=== PATIENT | female | born 1995 | race Hispanic/Latino ===

== ENCOUNTER 2021-09-17 12:40 | Emergency (ER) | payer BC, OTHER ==
--- NOTE | 2021-09-17 12:56 | EDPHYS ---
Physician Documentation [facility] Name: Savanna Love Age: 26 yrs Sex: Female : 1995 Arrival Date: 09/17/2021 Time: 12:42 Bed 17 Private MD: ED Physician Wai Sales HPI: 09/17 12:58 This 26 yrs old Female presents to ER via Ambulatory with complaints of kb Allergic Reaction, Skin Problem. 12:57 The patient has experienced similar episodes in the past. The patient has not recently kb seen a physician. 12:58 The patient's rash thought to be caused by an unknown cause. The rash is located on the kb right leg and left leg. The rash can be described as erythematous. Onset: The symptoms/episode began/occurred yesterday. Associated signs and symptoms: Pertinent positives: burning sensation, itching, Pertinent negatives: fever. Severity of symptoms: At their worst the symptoms were moderate in the emergency department the symptoms are unchanged. Pt reports rash to bilateral lower extremities that started last night. Reports burning and itching to area. States she has had this rash in the same area several times in the past and normally gets a shot of steroids. . 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 - Social history:: Smoking status: Patient denies any tobacco usage or history of. ROS: 12:56 Constitutional: Negative for fever, chills, and weight loss. kb 12:56 Skin: Positive for rash, of the right leg and left leg. 12:56 All other systems are negative. Exam: 12:57 Constitutional: This is a well developed, well nourished patient who is awake, alert, kb and in no acute distress. Head/Face: Normocephalic, atraumatic. ENT: Moist Mucous membranes Respiratory: Respirations even and unlabored. No increased work of breathing. Talking in full sentences MS/ Extremity: Pulses equal, no cyanosis. Neurovascular intact. Full, normal range of motion. Neuro: Awake and alert, GCS 15, oriented to person, place, time, and situation. Moves all extremities. Normal gait. Psych: Awake, alert, with orientation to person, place and time. Behavior, mood, and affect are within normal limits. 12:57 Skin: rash a moderate rash is noted, rash can be described as erythematous, on the right leg and left leg. Vital Signs: 12:52 BP 132 / 83; Pulse 116; Resp 16; Temp 98.6(O); Pulse Ox 100% ; Weight 62.14 kg; Height vg1 5 ft. 2 in. (157.48 cm); Pain 6/10; 13:28 BP 122 / 67; Pulse 84; Resp 17; Pulse Ox 98% ; Pain 0/10; jh6 12:52 Body Mass Index 25.06 (62.14 kg, 157.48 cm) vg1 MDM: 12:47 Patient medically screened. kb 12:56 Data reviewed: vital signs, nurses notes. Data interpreted: Pulse oximetry: on room air kb is 100 %. Interpretation: normal. Counseling: I had a detailed discussion with the patient and/or guardian regarding: the historical points, exam findings, and any diagnostic results supporting the discharge/admit diagnosis, the need for outpatient follow up, a community health nursing director, a family practitioner, to return to the emergency department if symptoms worsen or persist or if there are any questions or concerns that arise at home. Administered Medications: 13:20 Drug: Decadron (dexamethasone) 10 mg Route: IM; Site: right gluteus; [facility] 13:25 Follow up: Response: No adverse reaction [facility] Disposition: 18:51 Co-signature as Attending Physician, Wai Sales MD I agree with the assessment and rn plan of care. Attestation: The patient's history, exam findings, diagnostics, and a summary of any interventions or procedures was reviewed in detail with Maggy SOARES. Disposition Summary: 09/17/21 12:55 Discharge Ordered Location: Home Condition: Stable kb Diagnosis - Rash and other nonspecific skin eruption kb Followup: kb - With: Emergency Department - When: As needed - Reason: Worsening of condition Followup: kb - With: Private Physician - When: 2 - 3 days - Reason: Recheck today's complaints, Continuance of care, Re-evaluation by your physician Discharge Instructions: - Discharge Summary Sheet kb - Rash, Adult, Dtje-lq-Epno kb Forms: - Medication Reconciliation Form kb - Thank You Letter kb - Antibiotic Education kb - Prescription Opioid Use kb - Work release form eb Prescriptions: - Medrol (Jerrod) 4 mg Oral Tablets, Dose Pack - take 1 tablet by ORAL route as directed - follow package instructions; 1 kb packet; Refills: 0, Product Selection Permitted Signatures: Maggy Parish FNP-C DIRECTOR OF ENGINEERING-Wai Hernandez MD MD rn Grisel Coats RN RN vg1 Graciela Greer RN RN jh6 Corrections: (The following items were deleted from the chart) 12:59 12:57 The patient has not experienced similar symptoms in the past, kb kb
--- NOTE | 2021-09-17 12:56 | ER ---
Nurse's Notes [facility] Name: Savanna Love Age: 26 yrs Sex: Female : 1995 Arrival Date: 09/17/2021 Time: 12:42 Bed 17 Private MD: Diagnosis: Rash and other nonspecific skin eruption Presentation: 09/17 12:52 Chief complaint: Patient states: "Im having a flare up, I have arthritis and my doctor vg1 told me I have vasculitis but Im not too sure what causes this or how it happends'. Pt appears to have a rash to ERASMO legs and states pain and burning sensation. States rash appeared last night. Coronavirus screen: Vaccine status: Patient reports being unvaccinated. Client denies travel out of the [place] in the last 14 days. Ebola Screen: Patient negative for fever greater than or equal to 101.5 degrees Fahrenheit, and additional compatible Ebola Virus Disease symptoms. Onset: The symptoms/episode began/occurred yesterday. Anaphylaxis evaluation, no signs or symptoms of anaphylaxis were noted. Initial Sepsis Screen: Does the patient meet any 2 criteria? HR > 90 bpm. Does the patient have a suspected source of infection? No. Patient's initial sepsis screen is negative. Risk Assessment: Do you want to hurt yourself or someone else? Patient reports no desire to harm self or others. Onset of symptoms was September 16, 2021. 12:52 Method Of Arrival: Ambulatory vg1 12:52 Acuity: SUBHASH 3 vg1 Triage Assessment: 12:54 General: Appears in no apparent distress. comfortable, Behavior is calm, cooperative. vg1 Pain: Complains of pain in right leg and left leg. 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 - Social history:: Smoking status: Patient denies any tobacco usage or history of. Screenin:10 Abuse screen: Denies threats or abuse. [facility] 13:10 Nutritional screening: No deficits noted. Tuberculosis screening: No symptoms or risk jh6 factors identified. Fall Risk None identified. Assessment: 13:10 General: Appears in no apparent distress. Behavior is calm, cooperative. 6 13:10 Respiratory: Airway is patent Respiratory effort is even, unlabored, Breath sounds are 6 clear. 13:24 Reassessment: No changes from previously documented assessment. no reaction to med jh6 given, verbal understanding of d/c instructions and follow up if condition continued. Vital Signs: 12:52 BP 132 / 83; Pulse 116; Resp 16; Temp 98.6(O); Pulse Ox 100% ; Weight 62.14 kg; Height vg1 5 ft. 2 in. (157.48 cm); Pain 6/10; 13:28 BP 122 / 67; Pulse 84; Resp 17; Pulse Ox 98% ; Pain 0/10; jh6 12:52 Body Mass Index 25.06 (62.14 kg, 157.48 cm) vg1 ED Course: 12:42 Patient arrived in ED. am2 12:42 Maggy Parish FNP-C is [facility]. kb 12:42 Wai Sales MD is Attending Physician. kb 12:54 Triage completed. vg1 12:54 Arm band placed on. vg1 13:10 Bed in low position. Call light in reach. Side rails up X 1. jh6 13:10 No provider procedures requiring assistance completed. jh6 13:10 Patient did not have IV access during this emergency room visit. jh6 13:15 Graciela Greer, TYRON is Primary Nurse. 6 Administered Medications: 13:20 Drug: Decadron (dexamethasone) 10 mg Route: IM; Site: right gluteus; 6 13:25 Follow up: Response: No adverse reaction [facility] Outcome: 12:55 Discharge ordered by . kb 13:25 Discharged to home jh6 13:25 Condition: good 13:25 Discharge instructions given to patient. 13:28 Patient left the ED. [facility] Signatures: Maggy Parish FNP-C FNP-Ckb Moreno, Amanda am2 Grisel Coats, RN RN 1 Graciela Greer RN RN 6
[2021-09-17] MEDS ORDERED: dexAMETHasone 10 MG/ML VIAL ONE (13:19)
[2021-09-17 13:38] VITALS: TEMP 98.6
[2021-09-17 13:39] VITALS: BP 122/67; O2SAT 98
== END 2021-09-17 13:28 | disposition home or self-care (01) ==
LOC: ER 12:40
DX: R21 Rash and other nonspecific skin eruption (principal)
CPT/HCPCS: 96372; 99283; J1100

== ENCOUNTER 2022-06-13 15:19 | Emergency (ER) | payer BC, OTHER, SELFPAY ==
[2022-06-13] MEDS ORDERED: dexAMETHasone 10 MG/ML VIAL ONE (16:43)
--- NOTE | 2022-06-13 16:46 | RAD REPORT ---
EXAM DESCRIPTION: US - Extrem Venous W Compress Marcus - 06/13/2022 4:38 pm CLINICAL HISTORY: PAIN COMPARISON: No comparisons TECHNIQUE: Real-time sonographic evaluation of the lower extremity deep venous systems was performed using color Doppler, grayscale, and compression. FINDINGS: Bilateral lower extremities. Normal compressibility, flow augmentation, phasic flow and spontaneous flow is identified in both the left and right lower extremity deep venous systems. No intraluminal filling defects seen. IMPRESSION: No DVT in either lower extremity.
--- NOTE | 2022-06-13 17:01 | ER ---
Nurse's Notes [facility] Name: Savanna Flynn Age: 27 yrs Sex: Female : 1995 Arrival Date: 06/13/2022 Time: 15:22 Bed 11 Private MD: Diagnosis: Pain in leg, unspecified Presentation: 06/13 15:41 Chief complaint: Patient states: No vasculitis meds for about 1 year. Leg pains, ll1 limping this week. Coronavirus screen: Client denies travel out of the [place] in the last 14 days. Ebola Screen: Patient denies travel to an Ebola-affected area in the 21 days before illness onset. Initial Sepsis Screen: Does the patient meet any 2 criteria? HR > 90 bpm. No. Patient's initial sepsis screen is negative. Does the patient have a suspected source of infection? No. Patient's initial sepsis screen is negative. Risk Assessment: Do you want to hurt yourself or someone else? Patient reports no desire to harm self or others. Onset of symptoms was June 06, 2022. 15:41 Method Of Arrival: Ambulatory ll1 15:41 Acuity: SUBHASH 3 ll1 15:44 Coronavirus screen: Vaccine status: Patient reports being unvaccinated. At this time, ll1 the client does not indicate any symptoms associated with coronavirus-19. Triage Assessment: 15:44 General: Appears in no apparent distress. Behavior is cooperative, appropriate for age. ll1 Pain: Complains of pain in right leg and left leg Pain currently is 7 out of 10 on a pain scale. Quality of pain is described as aching. Musculoskeletal: Reports pain in right leg and left leg. Historical: - Allergies: 15:42 No Known Allergies; ll1 - PMHx: 15:42 Arthritis; vasculitis; shogrens; Fibromyalgia; ll1 - PSHx: 15:42 section; ll1 - Immunization history:: Client reports having NOT received the Covid vaccine. - Social history:: Smoking status: Patient denies any tobacco usage or history of. Vital Signs: 15:41 BP 128 / 87; Pulse 100; Resp 16; Temp 97.8; Pulse Ox 100% ; ll1 ED Course: 15:22 Patient arrived in ED. as 15:24 Romeo Ford PA is PHCP. jmm 15:24 Gil Polk MD is Attending Physician. jmm 15:40 Arm band placed on. ll1 15:42 Triage completed. ll1 15:53 Patient placed in an exam room, on a stretcher. iw 16:40 US Extremity Venous W Compression Marcus In Process Unspecified. EDMS 16:43 Opal Gupta, RN is Primary Nurse. iw Administered Medications: 16:47 Drug: Decadron (dexamethasone) 10 mg Route: IM; Site: right ventrogluteal; iw Outcome: 17:00 Discharge ordered by . julita 17:33 Patient left the ED. iw Signatures: Dispatcher [employer] EDMS Romeo Ford PA PA Dalila Gilbert as Opal Gupta, RN RN iw Maia Iglesias RN RN 1
--- NOTE | 2022-06-13 17:01 | EDPHYS ---
Physician Documentation [facility] Name: Savanna Flynn Age: 27 yrs Sex: Female : 1995 Arrival Date: 06/13/2022 Time: 15:22 Bed 11 Private MD: ED Physician Gil Polk HPI: 06/13 15:45 This 27 yrs old Female presents to ER via Ambulatory with complaints of jmm vasculitis flare. 15:45 The patient presents with pain. Onset: The symptoms/episode began/occurred gradually. jmm Modifying factors: The symptoms are alleviated by nothing. the symptoms are aggravated by nothing. Associated signs and symptoms: Pertinent positives: swelling, Pertinent negatives fever. Is a 27-year-old female with history of Sjogren's, fibromyalgia, vasculitis the presents emerged department with complaints of bilateral lower extremity pain. Symptoms been ongoing for approximately a week but states she is currently feeling more fatigued. Denies known injury. Patient has had similar episodes with previous vasculitis flares. Denies fever. Historical: - Allergies: 15:42 No Known Allergies; ll1 - PMHx: 15:42 Arthritis; vasculitis; shogrens; Fibromyalgia; ll1 - PSHx: 15:42 section; ll1 - Immunization history:: Client reports having NOT received the Covid vaccine. - Social history:: Smoking status: Patient denies any tobacco usage or history of. Vital Signs: 15:41 BP 128 / 87; Pulse 100; Resp 16; Temp 97.8; Pulse Ox 100% ; ll1 MDM: 15:57 Patient medically screened. [facility] 17:00 Data reviewed: vital signs, nurses notes. Counseling: I had a detailed discussion with [facility] the patient and/or guardian regarding: the historical points, exam findings, and any diagnostic results supporting the discharge/admit diagnosis, the need for outpatient follow up, to return to the emergency department if symptoms worsen or persist or if there are any questions or concerns that arise at home. 06/13 15:44 Order name: US Extremity Venous W Compression Marcus; Complete Time: 17:01 [facility] Administered Medications: 16:47 Drug: Decadron (dexamethasone) 10 mg Route: IM; Site: right ventrogluteal; iw Disposition Summary: 06/13/22 17:00 Discharge Ordered Location: Home [facility] Condition: Stable jmm Diagnosis - Pain in leg, unspecified jmm Followup: m - With: Private Physician - When: 2 - 3 days - Reason: Recheck today's complaints, Continuance of care, Re-evaluation by your physician Discharge Instructions: - Discharge Summary Sheet jmm - Vasculitis jmm Forms: - Medication Reconciliation Form [facility] - Thank You Letter julita - Antibiotic Education porfirio - Prescription Opioid Use [facility] Prescriptions: - Prednisone 20 mg Oral Tablet - take 3 tablets by ORAL route once daily for 5 days; 15 tablet; Refills: 0, [facility] Product Selection Permitted - orphenadrine citrate 100 mg Oral Tablet Sustained Release - take 1 tablet by ORAL route 2 times per day As needed; 20 tablet; Refills: 0, [facility] Product Selection Permitted Addendum: 06/18/2022 04:21 Co-signature as Attending Physician, Gil Polk MD I agree with the assessment and r t plan of care. Signatures: Dispatcher [employer] EDRomeo Leblanc PA PA jmm Williams, Irene RN TYRON iw Maia Iglesias RN RN ll1 Gil Polk MD MD rt
[2022-06-13 17:37] VITALS: BP 128/87; TEMP 97.8; O2SAT 100
== END 2022-06-13 17:33 | disposition home or self-care (01) ==
LOC: ER 15:19
DX: M79.605 Pain in left leg (principal); M79.604 Pain in right leg
CPT/HCPCS: 93970; 96372; 99283; J1100

== ENCOUNTER 2022-08-21 07:04 | Emergency (ER) | payer BC, SELFPAY ==
[2022-08-21 08:08] LABS: Absolute Lymphocytes (CBC) 1.5 K/uL (0.7-4.9); Lymphocytes % 28.7 % (15.3-44.8); MCV 89.3 fL (80-100); MPV 8.5 fL (7.6-11.3); RBC Red Blood Cell Count 3.69 M/uL (3.86-4.86)
[2022-08-21 08:11] LABS: Protime INR 1.09
--- NOTE | 2022-08-21 08:15 | RAD REPORT ---
EXAM DESCRIPTION: RAD - Chest Single View - 08/21/2022 7:48 am CLINICAL HISTORY: CHEST PAIN COMPARISON: None TECHNIQUE: AP portable chest image was obtained 08/21/2022 7:48 am . FINDINGS: Lungs are clear. Heart and vasculature are normal. No measurable pleural effusion and no p neumothorax. No acute bony abnormality seen. No acute aortic findings suspected. IMPRESSION: No acute cardiopulmonary process.
[2022-08-21 08:21] LABS: ALT/SGPT 19 U/L (13-56); AST/SGOT 15 U/L (15-37); Albumin 3.6 g/dL (3.4-5.0); Alkaline Phosphatase 87 U/L (45-117); BUN Blood Urea Nitrogen 16 mg/dL (7-18); Bicarbonate 27 mmol/L (21-32); Bilirubin Total 0.3 mg/dL (0.2-1.0); Glomerular Filtration Rate 107 ml/min (=/>90); Glucose Level 99 mg/dL (74-106); Potassium 3.1 mmol/L (3.5-5.1); Protein, Total 9.1 g/dL (6.4-8.2); Sodium Level 139 mmol/L (136-145)
[2022-08-21 08:22] LABS: Bilirubin Direct < 0.1 mg/dL (0-0.2)
[2022-08-21 08:43] LABS: SARS-COV-2 RT PCR NEGATIVE (NEGATIVE)
[2022-08-21] MEDS ORDERED: POTASSIUM CL SA 10 MEQ TAB PO ONE (08:54)
--- NOTE | 2022-08-21 08:54 | ER ---
Nurse's Notes [facility] Name: Savanna Flynn Age: 27 yrs Sex: Female : 1995 Arrival Date: 08/21/2022 Time: 07:08 Bed 8 Private MD: Diagnosis: Vascultis, Hypokalemia, Back pain Presentation: 08/21 07:14 Chief complaint: Patient states: "I feel like I am having a flare up of vasculitis \\T\\ I ld1 feel like needles are in my lungs." Denies chest pain. C/O busted blood vessels of ERASMO feet, pain to mid back when breathing. Coronavirus screen: At this time, the client does not indicate any symptoms associated with coronavirus-19. Ebola Screen: No symptoms or risks identified at this time. Initial Sepsis Screen: Does the patient meet any 2 criteria? No. Patient's initial sepsis screen is negative. Does the patient have a suspected source of infection? No. Patient's initial sepsis screen is negative. Risk Assessment: Do you want to hurt yourself or someone else? Patient reports no desire to harm self or others. Onset of symptoms was August 21, 2022. 07:14 Method Of Arrival: Ambulatory ld1 07:14 Acuity: SUBHASH 3 ld1 Triage Assessment: 07:17 General: Appears in no apparent distress. comfortable, Behavior is calm, cooperative, ld1 appropriate for age. Pain: Complains of pain in mid back area Pain does not radiate. Pain currently is 7 out of 10 on a pain scale. Quality of pain is described as sharp, stabbing, Pain began 2-3 days ago. Is continuous. EENT: No signs and/or symptoms were reported regarding the EENT system. Neuro: Level of Consciousness is awake, alert, obeys commands, Oriented to person, place, time, situation. Cardiovascular: Capillary refill < 3 seconds Patient's skin is warm and dry. Respiratory: Airway is patent Respiratory effort is even, unlabored, the patient has mild shortness of breath. GI: Abdomen is round non-distended. : No signs and/or symptoms were reported regarding the genitourinary system. Derm: No signs and/or symptoms reported regarding the dermatologic system. Musculoskeletal: Range of motion: intact in all extremities. 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 - Social history:: Smoking status: Patient reports the use of cigarette tobacco products, denies chronic smoking, but will smoke occasionally, Patient uses alcohol, only on a social basis. Screenin:35 [facility] ED Fall Risk Assessment (Adult) History of falling in the last 3 months, ko1 including since admission No falls in past 3 months (0 pts) Confusion or Disorientation No (0 pts) Intoxicated or Sedated No (0 pts) Impaired Gait No (0 pts) Mobility Assist Device Used No (0 pt) Altered Elimination No (0 pt) Score/Fall Risk Level 0 - 2 = Low Risk Oriented to surroundings, Maintained a safe environment, Educated pt \\T\\ family on fall prevention, incl call for assistance when getting out of bed, Assessed \\T\\ reinforced patient's understanding of fall precautions, Provided non-skid footwear, Hourly rounding (assess needs \\T\\ fall precautionary measures) done, Used ambulatory aids as needed (educated on \\T\\ assisted with), Used gait belt as appropriate. Abuse screen: Denies threats or abuse. Denies injuries from another. Nutritional screening: No deficits noted. Tuberculosis screening: No symptoms or risk factors identified. Assessment: 07:35 General: Appears in no apparent distress. comfortable, Behavior is calm, cooperative, ko1 appropriate for age. Pain: Complains of pain in back and mid back area. Neuro: No deficits noted. Cardiovascular: No deficits noted. Respiratory: No deficits noted. GI: No deficits noted. : No deficits noted. EENT: No deficits noted. Derm: No deficits noted. Musculoskeletal: No deficits noted. 08:58 Neuro: Kahn Agitation-Sedation Scale (RASS): 0 - Alert and Calm. ko1 Vital Signs: 07:14 BP 120 / 73; Pulse 100; Resp 18; Temp 97.9(O); Pulse Ox 97% on R/A; Weight 63.5 kg; ld1 Height 5 ft. 2 in. (157.48 cm); Pain 7/10; 07:27 BP 118 / 70; Pulse 96; Resp 16; Pulse Ox 99% ; ko1 08:46 BP 107 / 76; Pulse 88; Pulse Ox 98% ; ko1 07:14 Body Mass Index 25.61 (63.50 kg, 157.48 cm) ld1 ED Course: 07:08 Patient arrived in ED. ja2 07:17 Triage completed. ld1 07:17 Arm band placed on right wrist. ld1 07:20 Tatiana Bess MD is Attending Physician. sp3 07:25 Cora Waters, RN is Primary Nurse. ko1 07:35 Patient has correct armband on for positive identification. Bed in low position. Call ko1 light in reach. Side rails up X 1. Pulse ox on. NIBP on. 07:50 XRAY Chest (1 view) In Process Unspecified. EDMS 08:00 Inserted saline lock: 20 gauge in right antecubital area, using aseptic technique. ko1 Blood collected. 08:01 COVID-19/FLU A+B Sent. kj1 08:58 No provider procedures requiring assistance completed. ko1 08:59 IV discontinued, intact, bleeding controlled, No redness/swelling at site. Pressure ko1 dressing applied. Administered Medications: 08:53 Drug: SOLU-Medrol (methylPREDNISolone sodium succinate) 125 mg Route: IM; Site: left ko1 gluteus; 09:02 Follow up: Response: No adverse reaction ko1 08:53 Drug: Potassium Chloride 40 mEq Route: PO; ko1 09:01 Follow up: Response: No adverse reaction ko1 Medication: 08:58 VIS not applicable for this client. ko1 Outcome: 08:53 Discharge ordered by . sp3 08:59 Discharged to home ambulatory. ko1 08:59 Condition: stable 09:17 Discharge instructions given to patient, Instructed on discharge instructions, follow ko1 up and referral plans. Demonstrated understanding of instructions, follow-up care. 09:19 Patient left the ED. ko1 Signatures: Dispatcher [employer] EDMS Fransisca Parish kj1 Maricruz Singh RN RN ld1 Tatiana Bess MD MD sp3 Anila Santos 2 Cora Waters, RN RN ko1 Corrections: (The following items were deleted from the chart) 09:17 08:59 Discharge instructions given to patient, Instructed on discharge instructions, ko1 follow up and referral plans. medication usage, Demonstrated understanding of instructions, follow-up care, medications, Prescriptions given X ko1
--- NOTE | 2022-08-21 08:54 | EDPHYS ---
Physician Documentation [facility] Name: Savanna Flynn Age: 27 yrs Sex: Female : 1995 Arrival Date: 08/21/2022 Time: 07:08 Bed 8 Private MD: ED Physician Tatiana Bess HPI: 08/21 07:46 This 27 yrs old Female presents to ER via Ambulatory with complaints of Back sp3 Pain, Pain Breathing, Problem w/ Feet. 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 She has not had symptoms like this in the past. No history of prior pneumothorax, pulmonary embolism, pleurisy, or any chest or back injury. She also has a mild rash on her right left anterior feet consistent with her prior vasculitis. She is requesting IV steroids for this. She denies anterior chest pain, throat pain, fever, URI symptoms, headache, lower back pain, abdominal pain, nausea, vomiting, diarrhea, or any other symptoms at this time.. 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 - Social history:: Smoking status: Patient reports the use of cigarette tobacco products, denies chronic smoking, but will smoke occasionally, Patient uses alcohol, only on a social basis. ROS: 07:48 Constitutional: Negative for fever, chills, and weight loss, Eyes: Negative for injury, sp3 pain, redness, and discharge, ENT: Negative for injury, pain, and discharge, Neck: Negative for injury, pain, and swelling, Cardiovascular: Negative for chest pain, palpitations, and edema, Abdomen/GI: Negative for abdominal pain, nausea, vomiting, diarrhea, and constipation, MS/Extremity: Negative for injury and deformity, Neuro: Negative for headache, weakness, numbness, tingling, and seizure, Psych: Negative for depression, anxiety, suicide ideation, homicidal ideation, and hallucinations, Endocrine: Negative for neck swelling, polydipsia, polyuria, polyphagia, and marked weight changes. 07:48 All other systems are negative. Exam: 07:48 Constitutional: This is a well developed, well nourished patient who is awake, alert, sp3 and in no acute distress. Head/Face: Normocephalic, atraumatic. Eyes: Pupils equal round and reactive to light, extra-ocular motions intact. Lids and lashes normal. Conjunctiva and sclera are non-icteric and not injected. Cornea within normal limits. Periorbital areas with no swelling, redness, or edema. ENT: Nares patent. No nasal discharge, no septal abnormalities noted. External auditory canals are clear. Oropharynx with no redness, swelling, or masses, exudates, or evidence of obstruction, uvula midline. Mucous membranes moist. Neck: Trachea midline, no thyromegaly or masses palpated, and no cervical lymphadenopathy. Supple, full range of motion without nuchal rigidity, or vertebral point tenderness. No Meningismus. Chest/axilla: Normal chest wall appearance and motion. Nontender with no deformity. No lesions are appreciated. Cardiovascular: Regular rate and rhythm with a normal S1 and S2. No gallops, murmurs, or rubs. Normal PMI, no JVD. No pulse deficits. Respiratory: Lungs have equal breath sounds bilaterally, clear to auscultation and percussion. No rales, rhonchi or wheezes noted. No increased work of breathing, no retractions or nasal flaring. Abdomen/GI: Soft, non-tender, with normal bowel sounds. No distension or tympany. No guarding or rebound. No evidence of tenderness throughout. Neuro: Awake and alert, GCS 15, oriented to person, place, time, and situation. Cranial nerves II-XII grossly intact. Motor strength 5/5 in all extremities. Sensory grossly intact. Cerebellar exam normal. Normal gait. Psych: Awake, alert, with orientation to person, place and time. Behavior, mood, and affect are within normal limits. 07:48 Back: Pain to palpation on mid back musculature. Range of motion is intact. No rash noted.. 07:48 Skin: Maculopapular rash bilateral anterior feet over vasculature consistent with her prior vasculitis.. Vital Signs: 07:14 BP 120 / 73; Pulse 100; Resp 18; Temp 97.9(O); Pulse Ox 97% on R/A; Weight 63.5 kg; ld1 Height 5 ft. 2 in. (157.48 cm); Pain 7/10; 07:27 BP 118 / 70; Pulse 96; Resp 16; Pulse Ox 99% ; ko1 08:46 BP 107 / 76; Pulse 88; Pulse Ox 98% ; ko1 07:14 Body Mass Index 25.61 (63.50 kg, 157.48 cm) ld1 MDM: 07:34 Patient medically screened. sp3 07:50 Data reviewed: vital signs, nurses notes. ED course: 27-year-old female with back pain sp3 and vasculitis bilateral lower extremities. She is concerned for possible COVID with pneumonia infection. Differential diagnosis includes musculoskeletal pain, COVID-19, influenza, viral syndrome, pleurisy, among others. Clinically I am not highly suspicious for pneumonia, sepsis, acute coronary syndrome, pathology including dissection and aneurysm other critical findings. She also has vasculitis similar to her prior episodes. We will obtain chest x-ray, laboratory values, COVID-19 and flu swabs and general support. Steroids will be given if work-up is negative. Patient to follow-up with her primary care physician. Disposition will be based on patient course and work-up.. 08:51 ED course: Patient's labs with patient. Potassium is 3.1 we will replenish with 40 mg sp3 p.o. potassium. Also 125 mg of Solu-Medrol will be given intramuscularly for the vasculitis. Chest x-ray and remainder of labs including swabs are all negative. Patient will be discharged at this time.. 02 07:40 Order name: Basic Metabolic Panel; Complete Time: 08:35 sp3 08/21 07:40 Order name: CBC with Diff; Complete Time: 08:35 sp3 08/21 07:40 Order name: LFT's; Complete Time: 08:35 sp3 08/21 07:40 Order name: PT-INR; Complete Time: 08:35 sp3 08/21 07:40 Order name: XRAY Chest (1 view); Complete Time: 08:35 sp3 08/21 07:40 Order name: COVID-19/FLU A+B sp3 08/21 07:40 Order name: IV Saline Lock; Complete Time: 08:01 sp3 08/21 07:40 Order name: Labs collected and sent; Complete Time: 08:01 sp3 Administered Medications: 08:53 Drug: SOLU-Medrol (methylPREDNISolone sodium succinate) 125 mg Route: IM; Site: left ko1 gluteus; 09:02 Follow up: Response: No adverse reaction ko1 08:53 Drug: Potassium Chloride 40 mEq Route: PO; ko1 09:01 Follow up: Response: No adverse reaction ko1 Disposition Summary: 08/21/22 08:53 Discharge Ordered Location: Home sp3 Condition: Stable sp3 Diagnosis - Vascultis, Hypokalemia, Back pain sp3 Followup: sp3 - With: Private Physician - When: As needed - Reason: Continuance of care Discharge Instructions: - Discharge Summary Sheet sp3 - Vasculitis sp3 Forms: - Medication Reconciliation Form sp3 - Thank You Letter sp3 - Antibiotic Education sp3 - Prescription Opioid Use sp3 - Work release form ko1 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 She has not had symptoms like this in the past. No history of prior pneumothorax, pulmonary embolism, pleurisy, or any chest or back injury. She also has a mild papular rash on her right left anterior feet consistent with her prior vasculitis. She is requesting IV steroids for this. She denies anterior chest pain, throat pain, fever, URI symptoms, headache, lower back pain, abdominal pain, nausea, vomiting, diarrhea, or any other symptoms at this time.. sp3
[2022-08-21] MEDS ORDERED: METHYLPREDNISOLONE 125 MG INJ ONE (08:55)
[2022-08-21 09:23] VITALS: TEMP 97.9
[2022-08-21 09:25] VITALS: BP 107/76; O2SAT 98
== END 2022-08-21 09:19 | disposition home or self-care (01) ==
LOC: ER 07:04
DX: M35.0B Sjogren syndrome with vasculitis (principal); E87.6 Hypokalemia; M54.9 Dorsalgia, unspecified; F17.210 Nicotine dependence, cigarettes, uncomplicated; Z20.822 Contact with and (suspected) exposure to COVID-19
CPT/HCPCS: 85025; 80048; 36415; 85610; 80076; 0240U; 71045; J2930

== ENCOUNTER 2022-09-05 16:08 | Emergency (ER) | payer BC ==
--- OUTSIDE RECORDS SUMMARY | 2022-09-05 16:10 | XMS REPORT | Continuity of Care Document ---
:1995 Author Organization [facility] t Address [address] [place] [address] Care Team Providers Name Role Phone Otf Plata Attending Clinician OTF LUCERO Attending Clinician Unavailable Payers Payer Name Policy Type Policy Number Effective Date Expiration Date S ource Problems Condition Condition Condition Status Onset Resolution Last Treating Co mments Source Name Details Category Date Date Treatment Clinician Date No known No known Disease Unive rs active active ity of problems problems [facility] Allergies, Adverse Reactions, Alerts Allergy Allergy Status Severity Reaction(s) Onset Inactive Treating Comm ents Source Name Type Date Date Clinician NO KNOWN Drug Active Univers ALLERGIE Class ity of S [facility] Social History Social Habit Start Date Stop Date Quantity Comments Source Sex Assigned At Uni versity [facility] Exposure to SARS-CoV-2 Not sure [facility] [place] (event) [facility] Smoking Status Start Date Stop Date Source Unknown if ever smoked Universit y [facility] Medications Ordered Filled Start Stop Current Ordering Indication Dosage Frequency Signature Comments Components Source Medication Medication Date Date Medication? Clinician (SIG) Name Name ketorolac 2020- No 15mg 15 mg, Unive rs (TORADOL) 09-09 Slow IV ity of injection 00:45: 23:47 Push, [place] 15 mg 00 :00 ONCE, 1 Medical dose, [facility] Branch 09/08/20 at 1845, RACHEL
Fa culty member approving Restricted medication : ADEEL BAKER ondansetron 2020- No 4mg 4 mg, Slow Univers (ZOFRAN 2- IV Push, ity of (PF)) 23:15: 22:24 ONCE, 1 [place] injection 4 00 :00 dose, [facility] Med ical mg 09/08/20 at Branch 1715, RACHEL morpHINE No 4mg 4 mg, Slow Un allie injection 4 09-08-25 IV Push, ity of mg 23:15: 22:24 ONCE, 1 [place] 00 :00 dose, [facility] 09/08/20 at Branch 1715, STAT maalox:diph No 15mL 15 mL, Uni vers enhydrAMINE 09-08 02-25 Oral, ity of :lidocaine 22:30: 22:30 ONCE, 1 Navin as 2 % viscous 00 :00 dose, [facility] ical 1:1:1 09/08/20 at [place] (FIRST-MOUT 1630, RACHEL HWASH BLM) oral suspension 15 mL NaCl 0.9% 2020- No 1000mL at 999 Uni vers (NS) bolus 09-08 02-26 mL/hr, ity of infusion 22:15: 00:50 1,000 mL, Navin as 1,000 mL 00 :00 IV Medical Infusion, [place] ONCE, 1 dose, [facility] 09/08/20 at 1615, RACHEL ondansetron Yes [id number] 4mg Take 1 Univers 4 mg 2-25 tablet by ity of disintegrat 00:00: mouth [place] ing tablet 00 every 8 Medica l (eight) Branch hours as needed for Nausea and Vomiting (N/V). ibuprofen Yes [id number] 600mg Take 1 Univers 600 mg 2-25 tablet by ity of tablet 00:00: mouth [place] 00 every 8 Medical (eight) Branch hours as needed for Pain (scale 4-6). Nitrofurant 2020- No [id number] 100mg Take 1 Univers oin&Nit. 2-25 03-03 capsule by ity of Macrocryst 00:00: 05:59 mouth 2 Navin as (MACROBID) 00 :00 (two) Medical 100 mg times [place] capsule daily for 5 days. Vital Signs Vital Name Observation Time Observation Value Comments Source Systolic blood 2020-09-08 23:45:00 112 mm[Hg] Univer sity of pressure [facility] Diastolic blood 2020-09-08 23:45:00 77 mm[Hg] [facility] Heart rate 2020-09-08 23:45:00 83 /min [facility] Respiratory rate 2020-09-08 23:45:00 18 /min [facility] Oxygen saturation in 2020-09-08 23:45:00 100 /min [facility] Arterial blood by [facility] Pulse oximetry [place] Body temperature 2020-09-08 21:56:00 36.61 Shira [facility] Body weight 2020-09-08 21:56:00 62.143 kg [facility] Procedures Procedure Date / Time Performed Performing Clinician Sour e URINALYSIS 2020-09-09 00:27:00 Otf Lucero [facility] US GALL BLADDER 2020-09-08 23:30:50 Otf Lucero [facility] LIPASE 2020-09-08 22:13:00 Otf Lucero [facility] HEPATIC FUNCTION PANEL 2020-09-08 22:13:00 Otf Lucero [facility] ([id number]) [facility] (ALB,T.PRO,BILI T,BU/BC,ALT,AST,ALK PHOS) BASIC METABOLIC PANEL 2020-09-08 22:13:00 Otf Lucero [facility] (NA, K, CL, CO2, Medical Branch GLUCOSE, BUN, CREATININE, CA) CBC WITH DIFF 2020-09-08 22:13:00 Otf Lucero [facility] POCT TEST 2020-09-08 22:13:00 Otf Lucero [facility] NOTICE OF PRIVACY 2020-09-08 21:50:49 Doctor Unassigned, No [facility] PRACTICES Name [facility] CONSENT/REFUSAL FOR 2020-09-08 21:50:40 Doctor Unassigned, No [facility] DIAGNOSIS AND Name Medical [place] TREATMENT Encounters Start End Encounter Admission Attending Care Care Encounter Source Date/Time Date/Time Type Type Clinicians Facility Department ID 2020-09-08 2020-09-08 Emergency HEAVENLY Lucero [id number] [facility] 16:00:00 19:27:00 Otf Sheikh [id number] i [facility] [place] [id number] [facility] [id number] [facility] 084 Branch 2020-09-08 2020-09-08 Emergency Floyd LUCERO [facility] ERT [id number] Univers 16:00:00 16:00:00 OTF rivera [facility] Results Test Description Test Time Test Comments Results Result Comments Source Urinalysis 2020-09-09 00:55:00 Test Item Value Reference Range Interpretation Comme nts APPEARANCE (test code = Clear Clear 4550485186) COLOR (test code = 3747945563) Yellow Yellow PH (test code = 6783772289) 4.8-8.0 SP GRAVITY (test code = 1.003-1.030 0088862654) GLU U QUAL (test code = Normal Normal 9767925233) BLOOD (test code = 7540286641) Negative Negative KETONES (test code = 2327668030) Negative Negative PROTEIN (test code = 2887-8) Negative Negative UROBILIN (test code = Normal Normal 0383646265) BILIRUBIN (test code = Negative Negative 4351565798) NITRITE (test code = 9517502195) Negative Negative LEUK ASAD (test code = 25/uL Negative A 2569853241) RBC/HPF (test code = 0615921790) See_Comment [Automated message] The system which ge nerated this result transmit dennis reference range: 0 - 3 HP F. The reference range was not used to interpret th is result as normal/abnormal . WBC/HPF (test code = 9122500153) See_Comment H [Automated message] The system which ge nerated this result transmit dennis reference range: 0 - 5 HP F. The reference range was not used to interpret th is result as normal/abnormal . BACTERIA (test code = Negative Negative 3310274911) MUCOUS (test code = 3662935785) Slight Negative LPF A SQ EPITH (test code = HPF 9329695013) Lab Interpretation (test code = Abnormal 14491-4) [facility] (ALB, T.PRO, BILI T, BU/BC, ALT, AST, ALK PHOS)2020-09-08 22:38:00 Test Item Value Reference Range Interpretation Comments TOTAL BILI (test code = 0697200317) 0.5 mg/dL 0.1-1.1 BILI UNCON (test code = 8141380573) 0.4 mg/dL 0.1-1.1 BILI CONJ (test code = 3251137226) 0.0 mg/dL 0-0.3 T PROTEIN (test code = 8271194377) 9.5 g/dL 6.3-8.2 H ALBUMIN (test code = 8465580168) 4.8 g/dL 3.5-5 ALK PHOS (test code = 4617730661) 90 U/L 34-122 ALTv (test code = 1742-6) 10 U/L 5-35 AST(SGOT) (test code = 4678734559) 23 U/L 13-40 Lab Interpretation (test code = Abnormal 08582-0) [facility] (NA, K, CL, CO2, GLUCOSE, BUN, CREATININE, CA)2020-09-08 22:36:00 Test Item Value Reference Range Interpretation Comments NA (test code = 139 mmol/L 135-145 1674856588) K (test code = 3.5 mmol/L 3.5-5 5523283317) CL (test code = 103 mmol/L 98-108 0063560544) CO2 TOTAL (test code = 25 mmol/L 23-31 0221326884) AGAP (test code = 2-16 4796972688) BUN (test code = 15 mg/dL 7-23 3543745329) GLUCOSE (test code = 133 mg/dL 70-110 H 6700342456) CREATININE (test code = 0.72 mg/dL 0.5-1.04 3990334126) CALCIUM (test code = 8.9 mg/dL 8.6-10.6 1156179015) eGFR Calculation mL/min/1.73m2 (Non-) (test code = 1452239787) eGFR Calculation mL/min/1.73m2 () (test code = 2288065077) MANE (test code = MANE) Association of Glomerular Filtration Rate (GFR) and Staging of Kidney Disease* + --+ --+ ------+| GFR (mL/min/1.73 m2) ?| With Kidney Damage ?| ?Without Kidney Damage+ --------+ --------+ +| ?>90 ?| ?Stage one ?| ? Normal ?+ ---+ ---+ -------+| ?60-89 ?| ?Stage two ?| ? Decreased GFR ? + --+ --+ ------+| ?30-59 ?| ?Stage three ?| ? Stage three ? + --+ --+ ------+| ?15-29 ?| ?Stage four ? | ? Stage four ?+ ---+ ---+ -------+| ?<15 (or dialysis) ? ?| ?Stage five ? | ? Stage five ?+ ---+ ---+ -------+ *Each stage assumes the associated GFR level has been in effect for at least three months. ?Stages 1 to 5, with or without kidney disease, indicate chronic kidney disease. Notes: Determination of stages one and two (with eGFR >59mL/min/1.73 m2) requires estimation of kidney damage for at least three months as defined by structural or functional abnormalities of the kidney, manifested by either:Pathological abnormalities or Markers of kidney damage (including abnormalities in the composition of the blood or urine or abnormalities in imaging tests). Lab Interpretation Abnormal (test code = 21313-1) [facility] [id number] 22:36:00 Test Item Value Reference Range Interpretation Comments LIPASE (test code = 8682844475) 92 U/L 0-220 Lab Interpretation (test code = Normal 09895-7) [facility] with [id number] 22:25:00 Test Item Value Reference Range Interpretation Comments WBC (test code = See_Comment [Automated 0508-2) message] The sy stem which generated this result transmitted reference range : 4.30 - 11.10 10*3/?L. The reference range was not used to interpret this result as normal/abnormal . RBC (test code = See_Comment L [Automated 149-8) message] The sy stem which generated this result transmitted reference range : 3.93 - 5.25 10*6/?L. The reference range was not used to interpret this result as normal/abnormal . HGB (test code = 11.3 g/dL 11.6-15 L 718-7) HCT (test code = 34.2 % 35.7-45.2 L 4544-3) MCV (test code = 91.7 fL 80.6-95.5 787-2) MCH (test code = 30.3 pg 25.9-32.8 785-6) MCHC (test code = 33.0 g/dL 31.6-35.1 786-4) RDW-SD (test code = 41.8 fL 39-49.9 17477-6) RDW-CV (test code = 12.5 % 12-15.5 788-0) PLT (test code = See_Comment [Automated 777-3) message] The sy stem which generated this result transmitted reference range : 166 - 358 10*3/ ?L. The reference r georgina was not used to interpret this result as normal/abnormal . MPV (test code = 10.3 fL 9.5-12.9 10621-7) NRBC/100 WBC (test See_Comment [Automat ed code = 0957933740) message] The system which generated this result transmitted reference range : 0.0 - 10.0 /100 WBCs. The refer ence range was not u sed to interpret th is result as normal/abnormal . NRBC x10^3 (test code <0.01 See_Comment [Auto mated = 2375552112) message] The s ystem which generated this result transmitted reference range : 10*3/?L. The reference range was not used to interpret this result as normal/abnormal . GRAN MAT (NEUT) % 62.6 % (test code = 770-8) IMM GRAN % (test code 0.70 % = 9693214747) LYMPH % (test code = 28.6 % 736-9) MONO % (test code = 6.0 % 5905-5) EOS % (test code = 1.6 % 713-8) BASO % (test code = 0.5 % 706-2) GRAN MAT x10^3(ANC) 5.09 10*3/uL 1.88-7.09 (test code = 6698873337) IMM GRAN x10^3 (test 0.06 10*3/uL 0-0.06 code = 4476421955) LYMPH x10^3 (test code 2.33 10*3/uL 1.32-3.29 = 731-0) MONO x10^3 (test code 0.49 10*3/uL 0.33-0.92 = 742-7) EOS x10^3 (test code = 0.13 10*3/uL 0.03-0.39 711-2) BASO x10^3 (test code 0.04 10*3/uL 0.01-0.07 = 704-7) Lab Interpretation Abnormal (test code = 67792-0) [facility] [id number] 22:13:00 Test Item Value Reference Range Interpretation Comments POCT PREG (test code = 1605) neg On board controls acceptable with yes C Line (test code = 3574) POCT PREG LOT # (test code = 3575) [id number] POCT PREG TEST DATE (test 04/13/2022 code = 3576) Lab Interpretation (test code = Normal 11260-7) [facility]"
[2022-09-05 17:30] LABS: Absolute Lymphocytes (CBC) 1.6 K/uL (0.7-4.9); Hematocrit 30.4 % (36.0-45.0); Lymphocytes % 27.7 % (15.3-44.8); MCV 89.4 fL (80-100); MPV 8.6 fL (7.6-11.3); Protime INR 1.06
[2022-09-05] MEDS ORDERED: Ringers Lactate 1,000 ML IV ONE (17:31)
[2022-09-05 17:48] LABS: ALT/SGPT 17 U/L (13-56); AST/SGOT 11 U/L (15-37); Albumin 3.6 g/dL (3.4-5.0); Alkaline Phosphatase 82 U/L (45-117); BUN Blood Urea Nitrogen 15 mg/dL (7-18); Bicarbonate 25 mmol/L (21-32); Bilirubin Total 0.2 mg/dL (0.2-1.0); Glomerular Filtration Rate 107 ml/min (=/>90); Glucose Level 99 mg/dL (74-106); Magnesium 2.4 mg/dL (1.6-2.4); NT PRO-BNP 47 pg/mL (<125); Potassium 3.1 mmol/L (3.5-5.1); Protein, Total 8.7 g/dL (6.4-8.2); Sodium Level 135 mmol/L (136-145); Troponin High Sensitivity 5.2 pg/mL (<58.9)
[2022-09-05 17:50] LABS: Bilirubin Direct < 0.1 mg/dL (0-0.2)
--- NOTE | 2022-09-05 17:51 | RAD REPORT ---
EXAM DESCRIPTION: CT - Head Brain Wo Cont - 09/05/2022 5:38 pm CLINICAL HISTORY: dizziness, syncope COMPARISON: No comparisons TECHNIQUE: Noncontrast head CT images ad were obtained without IV contrast. Multiplanar reformats we re generated and reviewed. All CT scans are performed using dose optimization technique as appropriate and may include automated exposure control or mA/KV adjustment according to patient size. FINDINGS: No intracranial hemorrhage, mass, or edema. Midline structures are unremarkable. Normal ventricular caliber for age. Finch-white matter differentiation is preserved, without evidence of acute infarct. No abnormal extra- axial fluid collections. Mastoid air cells and visualized portions of the paranasal sinuses are clear. No acute bony findings. IMPRESSION: No evidence of an acute intracranial process.
--- NOTE | 2022-09-05 18:03 | RAD REPORT ---
EXAM DESCRIPTION: RADChest Single View09/05/2022 5:13 pm CLINICAL HISTORY: syncope COMPARISON: Chest Single View dated 08/21/2022 TECHNIQUE: Portable AP view of the chest. FINDINGS: The lungs are clear. No pneumothorax or effusion. The cardiomediastinal contours are unrem arkable. IMPRESSION: No acute cardiopulmonary process.
[2022-09-05 19:15] LABS: Urine Blood Negative (Negative); Urine Glucose Negative (Negative); Urine Protein Negative (Negative)
[2022-09-05] MEDS ORDERED: METOCLOPRAMIDE 10 MG/2mL INJ ONE (19:26)
[2022-09-05] MEDS ORDERED: dexAMETHasone 10 MG/ML VIAL ONE (19:26)
[2022-09-05] MEDS ORDERED: NA CHLORIDE 0.9% 250 ML ONE (19:26)
--- NOTE | 2022-09-05 19:33 | EDPHYS ---
Physician Documentation [facility] Name: Savanna Flynn Age: 27 yrs Sex: Female : 1995 Arrival Date: 09/05/2022 Time: 16:09 Bed 18 Private MD: Timo Gonzalez HPI: 09/05 19:29 This 27 yrs old Female presents to ER via Ambulatory with complaints of Near jmm Syncope, Headache, Nausea. 19:29 The patient has experienced near-syncope. Onset: The symptoms/episode began/occurred jmm gradually, today. Duration: The patient has had multiple episodes. Is a 27-year-old female with a history of fibromyalgia, Sjogren's, vasculitis the presents emerged part with complaints of near syncope and headache. Patient states that she had a right-sided headache which is not consistent with previous migraines. Denies fever. States that she nearly syncopized at work.. 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 - Social history:: Smoking status: Patient reports the use of cigarette tobacco products, denies chronic smoking, but will smoke occasionally. ROS: 19:29 Respiratory: Negative for shortness of breath, cough, wheezing, and pleuritic chest jm pain. 19:29 Constitutional: Positive for fatigue. 19:29 Neuro: Positive for headache. 19:29 All other systems are negative. Exam: 17:31 ECG was reviewed by the Attending Physician. jmm 19:29 Constitutional: This is a well developed, well nourished patient who is awake, alert, jmm and in no acute distress. Head/Face: atraumatic. Eyes: EOMI, no conjunctival erythema appreciated ENT: Moist Mucus Membranes Neck: Trachea midline, Supple Chest/axilla: Normal chest wall appearance and motion. Cardiovascular: Regular rate and rhythm. No edema appreciated Respiratory: Normal respirations, no respiratory distress appreciated Abdomen/GI: Non distended Back: Normal ROM Skin: General appearance color normal MS/ Extremity: Moves all extremities, no obvious deformities appreciated, no edema noted to the lower extremities Neuro: Awake and alert Psych: Behavior is normal, Mood is normal, Patient is cooperative and pleasant Vital Signs: 16:23 BP 122 / 68; Pulse 88; Resp 16; Temp 98.4; Pulse Ox 98% ; Weight 63.5 kg; Height 5 ft. jh5 2 in. (157.48 cm); Pain 4/10; 17:30 BP 109 / 71; Pulse 89; Resp 16; Pulse Ox 100% on R/A; Pain 4/10; sg5 19:05 BP 102 / 68; Pulse 86; Resp 18; Pulse Ox 100% on R/A; ph 20:28 BP 107 / 70; Pulse 82; Resp 18 S; Pulse Ox 98% on R/A; aa9 16:23 Body Mass Index 25.60 (63.50 kg, 157.48 cm) 5 MDM: 16:39 Patient medically screened. bindu 19:31 Differential Diagnosis: cardiac arrhythmia, vasovagal episode, Migraine. Data reviewed: [facility] vital signs, nurses notes. I considered the following discharge prescriptions or medication management in the emergency department Medications were administered in the Emergency Department. See MAR. Care significantly affected by the following chronic conditions: Sjogren's,. Counseling: I had a detailed discussion with the patient and/or guardian regarding: the historical points, exam findings, and any diagnostic results supporting the discharge/admit diagnosis, lab results, radiology results, the need for outpatient follow up, to return to the emergency department if symptoms worsen or persist or if there are any questions or concerns that arise at home. ED course: Patient states that she feels much better. Patient is advised to follow-up with her PCP for further evaluation otherwise given strict return precautions. Patient understood and agrees plan of care.. 09/05 16:50 Order name: Basic Metabolic Panel [facility] 09/05 16:50 Order name: CBC with Diff [facility] 09/05 16:50 Order name: LFT's [facility] 09/05 16:50 Order name: Magnesium [facility] 09/05 16:50 Order name: NT PRO-BNP [facility] 09/05 16:50 Order name: PT-INR [facility] 09/05 16:50 Order name: Troponin HS [facility] 09/05 17:31 Order name: Protime (+INR); Complete Time: 17:56 EDTN 09/05 17:35 Order name: CBC with Automated Diff; Complete Time: 17:56 EDTN 09/05 17:50 Order name: Basic Metabolic Panel; Complete Time: 17:56 MS 09/05 17:50 Order name: Liver (Hepatic) Function; Complete Time: 17:56 MS 09/05 17:50 Order name: Troponin High Sensitivity; Complete Time: 17:56 [facility] 09/05 17:50 Order name: NT PRO-BNP; Complete Time: 17:56 [facility] 09/05 17:50 Order name: Magnesium; Complete Time: 17:56 [facility] 09/05 16:50 Order name: XRAY Chest (1 view) [facility] 09/05 16:50 Order name: EKG; Complete Time: 16:50 [facility] 09/05 16:50 Order name: Cardiac monitoring; Complete Time: 17:46 [facility] 09/05 16:50 Order name: EKG - Nurse/Tech; Complete Time: 17:27 [facility] 09/05 16:50 Order name: IV Saline Lock; Complete Time: 17:22 [facility] 09/05 16:50 Order name: Labs collected and sent; Complete Time: 17:46 [facility] 09/05 16:50 Order name: O2 Per Protocol; Complete Time: 17:46 [facility] 09/05 16:50 Order name: O2 Sat Monitoring; Complete Time: 17:46 [facility] 09/05 16:50 Order name: CT Head Brain wo Cont [facility] 09/05 17:52 Order name: CT; Complete Time: 17:56 [facility] 09/05 18:03 Order name: RAD; Complete Time: 18:04 [facility] 09/05 19:15 Order name: Urine Dipstick-Ancillary; Complete Time: 19:21 [facility] 09/05 18:05 Order name: Urine Test (obtain specimen); Complete Time: 19:19 jmm EC:31 Rate is 91 beats/min. Rhythm is regular. QRS [place] is Normal. CT interval is normal. QRS jmm interval is normal. QT interval is normal. No Q waves. T waves are Normal. No ST changes noted. Reviewed by me. Administered Medications: 18:01 Drug: Lactated Ringers Solution 1000 ml Route: IV; Rate: 1000 ml/hr; Site: right ph antecubital; 20:27 Follow up: Response: No adverse reaction; IV Status: Completed infusion; IV Intake: aa9 1000ml 19:29 Drug: Decadron - Dexamethasone 10 mg Route: IVP; Site: right antecubital; aa9 20:26 Follow up: Response: No adverse reaction aa9 19:30 Drug: Reglan (metoCLOPramide) 10 mg Route: IVP; Site: right antecubital; aa9 20:27 Follow up: Response: No adverse reaction aa9 20:17 Drug: Rocephin (cefTRIAXone) 1 grams Route: IV; Rate: calculated rate; Site: right aa9 antecubital; 20:26 Follow up: Response: No adverse reaction; IV Status: Completed infusion; IV Intake: [id number] Disposition Summary: 09/05/22 19:32 Discharge Ordered Location: Home jm Condition: Stable jm Diagnosis - UTI/ Urinary tract infection, site not specified jmm - Syncope Near jmm Followup: jmm - With: Private Physician - When: 2 - 3 days - Reason: Recheck today's complaints, Continuance of care, Re-evaluation by your physician Discharge Instructions: - Discharge Summary Sheet jm - Near-Syncope jmm - Urinary Tract Infection, Adult [facility] Forms: - Medication Reconciliation Form [facility] - Thank You Letter jm - Antibiotic Education jmm - Prescription Opioid Use [facility] - Work release form aa9 Prescriptions: - Cephalexin 500 mg Oral Capsule - take 1 capsule by ORAL route every 8 hours for 10 days; 30 capsule; Refills: 0, [facility] Product Selection Permitted Signatures: 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
--- NOTE | 2022-09-05 19:33 | ER ---
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 I got a tightness in my chest and i think it triggered an anxiety attack and now i feel really tired afterwards but my headache was really bad but is at a 4 now. Coronavirus screen: Vaccine status: Patient reports being unvaccinated. Client denies travel out of the [place] in the last 14 days. Ebola Screen: Patient negative for fever greater than or equal to 101.5 degrees Fahrenheit, and additional compatible Ebola Virus Disease symptoms Patient denies exposure to infectious person. Patient denies travel to an Ebola-affected area in the 21 days before illness onset. Initial Sepsis Screen: Does the patient meet any 2 criteria? No. Patient's initial sepsis screen is negative. Does the patient have a suspected source of infection? No. Patient's initial sepsis screen is negative. Risk Assessment: Do you want to hurt yourself or someone else? Patient reports no desire to harm self or others. 16:23 Method Of Arrival: Ambulatory [facility] 16:23 Acuity: SUBHASH 3 [facility] 19:20 Onset of symptoms was September 05, 2022. Triage Assessment: 16:26 Headache History: The patient has had previous headaches and this one is similar to [facility] previous episodes. General: Appears uncomfortable, slender, well groomed, well developed, Behavior is calm, cooperative, appropriate for age. Pain: Complains of pain in headache Pain currently is 4 out of 10 on a pain scale. at worst was 10 out of 10 on a pain scale. Pain began gradually, Also complains of sleeplessness. Neuro: No deficits noted. 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 - Social history:: Smoking status: Patient reports the use of cigarette tobacco products, denies chronic smoking, but will smoke occasionally. Screenin:19 [facility] ED Fall Risk Assessment (Adult) History of falling in the last 3 months, ph including since admission No falls in past 3 months (0 pts) Confusion or Disorientation No (0 pts) Intoxicated or Sedated No (0 pts) Impaired Gait No (0 pts) Mobility Assist Device Used No (0 pt) Altered Elimination No (0 pt) Score/Fall Risk Level 0 - 2 = Low Risk Oriented to surroundings, Maintained a safe environment, Hourly rounding (assess needs \T\ fall precautionary measures) done. Abuse screen: Denies threats or abuse. Denies injuries from another. Nutritional screening: No deficits noted. Tuberculosis screening: No symptoms or risk factors identified. Assessment: 17:27 General: Appears comfortable, Behavior is calm, cooperative, appropriate for age. Pain: sg5 Complains of pain in head pain, throbbing 4 on pain scale and chest pain a 2 on pain scale Pain does not radiate. Pain level that patient reports is acceptable is 2 out of 10 on a pain scale. Neuro: Level of Consciousness is awake, alert, obeys commands, Oriented to person, place, time, situation, Appropriate for age Reports near syncope episode. Cardiovascular: Reports chest pain, Heart tones S1 S2 present Capillary refill < 3 seconds Rhythm is regular. Respiratory: No deficits noted. Airway is patent. GI: No deficits noted. No signs and/or symptoms were reported involving the gastrointestinal system. : No deficits noted. No signs and/or symptoms were reported regarding the genitourinary system. EENT: No deficits noted. No signs and/or symptoms were reported regarding the EENT system. Derm: No deficits noted. No signs and/or symptoms reported regarding the dermatologic system. Musculoskeletal: No deficits noted. No signs and/or symptoms reported regarding the musculoskeletal system. 20:28 Reassessment: Patient appears in no apparent distress at this time. Patient is alert, aa9 oriented x 3, equal unlabored respirations, skin warm/dry/pink. Patient states feeling better. Patient states symptoms have improved. Vital Signs: 16:23 BP 122 / 68; Pulse 88; Resp 16; Temp 98.4; Pulse Ox 98% ; Weight 63.5 kg; Height 5 ft. jh5 2 in. (157.48 cm); Pain 4/10; 17:30 BP 109 / 71; Pulse 89; Resp 16; Pulse Ox 100% on R/A; Pain 4/10; sg5 19:05 BP 102 / 68; Pulse 86; Resp 18; Pulse Ox 100% on R/A; ph 20:28 BP 107 / 70; Pulse 82; Resp 18 S; Pulse Ox 98% on R/A; aa9 16:23 Body Mass Index 25.60 (63.50 kg, 157.48 cm) [facility] ED Course: 16:09 Patient arrived in ED. as 16:22 Romeo Ford PA is PHCP. [facility] 16:22 Timo Membreno MD is Attending Physician. [facility] 16:26 Triage completed. [facility] 16:26 Arm band placed on right wrist. [facility] 17:03 Elvira Norman, RN is Primary Nurse. ph 17:22 Inserted saline lock: 20 gauge in right antecubital area, using aseptic technique. 5 Blood collected. 19:19 Patient has correct armband on for positive identification. Bed in low position. Call ph light in reach. Side rails up X 1. Client placed on continuous cardiac and pulse oximetry monitoring. NIBP monitoring applied. 20:27 No provider procedures requiring assistance completed. IV discontinued, intact, aa9 bleeding controlled, No redness/swelling at site. Pressure dressing applied. Administered Medications: 18:01 Drug: Lactated Ringers Solution 1000 ml Route: IV; Rate: 1000 ml/hr; Site: right ph antecubital; 20:27 Follow up: Response: No adverse reaction; IV Status: Completed infusion; IV Intake: aa9 1000ml 19:29 Drug: Decadron - Dexamethasone 10 mg Route: IVP; Site: right antecubital; aa9 20:26 Follow up: Response: No adverse reaction aa9 19:30 Drug: Reglan (metoCLOPramide) 10 mg Route: IVP; Site: right antecubital; aa9 20:27 Follow up: Response: No adverse reaction aa9 20:17 Drug: Rocephin (cefTRIAXone) 1 grams Route: IV; Rate: calculated rate; Site: right aa9 antecubital; 20:26 Follow up: Response: No adverse reaction; IV Status: Completed infusion; IV Intake: [id number] Medication: 19:20 VIS not applicable for this client. ph Intake: 20:26 IV: 10ml; Total: 10ml. aa9 20:27 IV: 1000ml; Total: 1010ml. aa9 Outcome: 19:32 Discharge ordered by . julita 20:27 Discharged to home ambulatory, with family. aa9 20:27 Condition: stable 20:27 Discharge instructions given to patient, Instructed on discharge instructions, follow up and referral plans. medication usage, Demonstrated understanding of instructions, follow-up care, medications, Prescriptions given X 1. 20:28 Patient left the ED. aa9 Signatures: Romeo Ford PA PA jmm Martinez, Amelia as Hall, Patricia, RN RN Anila Parrish RN RN jh5 Natty Finley, RN RN aa9 Rosy Hou RN RN sg5
[2022-09-05] MEDS ORDERED: CEFTRIAXONE 1000 MG/VIAL ONE (19:54)
[2022-09-05 21:10] VITALS: TEMP 98.4
[2022-09-05 21:23] VITALS: BP 107/70; O2SAT 98
--- NOTE | 2022-09-06 16:31 | EKG ---
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
== END 2022-09-05 20:28 | disposition home or self-care (01) ==
LOC: ER 16:08
DX: N39.0 Urinary tract infection, site not specified (principal); R55 Syncope and collapse; F17.210 Nicotine dependence, cigarettes, uncomplicated
CPT/HCPCS: 85025; 80048; 36415; 83735; 85610; 80076; 81003; 84484; 83880; 70450; 71045; J2765; J1100; J7120; J7050; 93005; 96361; 96374; 96375; 99284

== ENCOUNTER 2022-09-28 05:48 | Emergency (ER) | payer BC ==
--- OUTSIDE RECORDS SUMMARY | 2022-09-28 05:51 | XMS REPORT | Continuity of Care Document ---
:1995 Author Organization [facility] t Address [address] [place] [address] Care Team Providers Name Role Phone Otf Plata Attending Clinician OTF LUCERO Attending Clinician Unavailable Payers Payer Name Policy Type Policy Number Effective Date Expiration Date S ource Problems Condition Condition Condition Status Onset Resolution Last Treating Co mments Source Name Details Category Date Date Treatment Clinician Date No known No known Disease Unive rs active active ity of problems problems [facility] Allergies, Adverse Reactions, Alerts Allergy Allergy Status Severity Reaction(s) Onset Inactive Treating Comm ents Source Name Type Date Date Clinician NO KNOWN Drug Active Univers ALLERGIE Class ity of S [facility] Social History Social Habit Start Date Stop Date Quantity Comments Source Sex Assigned At Uni versity [facility] Exposure to SARS-CoV-2 Not sure [facility] [place] (event) [facility] Smoking Status Start Date Stop Date Source Unknown if ever smoked Universit y [facility] Medications Ordered Filled Start Stop Current Ordering Indication Dosage Frequency Signature Comments Components Source Medication Medication Date Date Medication? Clinician (SIG) Name Name ketorolac 2020- No 15mg 15 mg, Unive rs (TORADOL) 09-09 Slow IV ity of injection 00:45: 23:47 Push, [place] 15 mg 00 :00 ONCE, 1 Medical dose, [facility] Branch 09/08/20 at 1845, RACHEL
Fa culty member approving Restricted medication : ADEEL BAKER ondansetron 2020- No 4mg 4 mg, Slow Univers (ZOFRAN 2- IV Push, ity of (PF)) 23:15: 22:24 ONCE, 1 [place] injection 4 00 :00 dose, [facility] Med ical mg 09/08/20 at Branch [...] dose, Sandi Med ical 1:1:1 09/08/20 at [place] (FIRST-MOUT 1630, RACHEL HWASH BLM) oral suspension 15 mL NaCl 0.9% 2020- No 1000mL at 999 Uni vers (NS) bolus 09-08 02-26 mL/hr, ity of infusion 22:15: 00:50 1,000 mL, Navin as 1,000 mL 00 :00 IV Medical Infusion, [place] ONCE, 1 dose, [facility] 09/08/20 at 1615, RACHEL ondansetron Yes [id number] 4mg Take 1 Univers 4 mg 2-25 tablet by ity of disintegrat 00:00: mouth [place] ing tablet 00 every 8 Medica l (eight) Branch hours as needed for Nausea and Vomiting (N/V). ibuprofen Yes [id number] 600mg Take 1 Univers 600 mg 2-25 tablet by ity of tablet 00:00: mouth [place] 00 every 8 Medical (eight) Branch hours as needed for Pain (scale 4-6). Nitrofurant 2020- No [id number] 100mg Take 1 Univers oin&Nit. 2-25 03-03 capsule by ity of [place] 00:00: 05:59 mouth 2 Navin as (MACROBID) 00 :00 (two) Medical 100 mg times [place] capsule daily for 5 days. Vital Signs Vital Name Observation Time Observation Value Comments Source Systolic blood 2020-09-08 23:45:00 112 mm[Hg] Univer sity of pressure [facility] Diastolic blood 2020-09-08 23:45:00 77 mm[Hg] [facility] Heart rate 2020-09-08 23:45:00 83 /min [facility] Respiratory rate 2020-09-08 23:45:00 18 /min [facility] Oxygen saturation in 2020-09-08 23:45:00 100 /min [facility] Arterial blood by [facility] [place] [facility] Pulse oximetry [place] Body temperature 2020-09-08 21:56:00 36.61 Shira [facility] Body weight 2020-09-08 21:56:00 62.143 kg [facility] Procedures Procedure Date / Time Performed Performing Clinician Sour e URINALYSIS 2020-09-09 00:27:[address] [facility] US GALL BLADDER 2020-09-08 23:30:[address] [facility] LIPASE 2020-09-08 22:13:[address] [facility] HEPATIC FUNCTION PANEL 2020-09-08 22:13:00 Otf Lucero [facility] ([id number]) [facility] (ALB,T.PRO,BILI T,BU/BC,ALT,AST,ALK PHOS) BASIC METABOLIC PANEL 2020-09-08 22:13:00 Otf Lucero [facility] (NA, K, CL, CO2, Medical Branch GLUCOSE, BUN, CREATININE, CA) CBC WITH DIFF 2020-09-08 22:13:[address] [facility] POCT TEST 2020-09-08 22:13:[address] [facility] NOTICE OF PRIVACY 2020-09-08 21:50:49 Doctor Unassigned, No [facility] PRACTICES Name [facility] CONSENT/REFUSAL FOR 2020-09-08 21:50:40 Doctor Unassigned, No [facility] DIAGNOSIS AND Name Medical [place] TREATMENT Encounters Start End Encounter Admission Attending Care Care Encounter Source Date/Time Date/Time Type Type Clinicians Facility Department ID 2020-09-08 2020-09-08 Emergency HEAVENLY Lucero [id number] [facility] 16:00:00 19:27:00 Otf Sheikh [id number] i [facility] [place] [id number] [facility] [id number] [facility] 084 Branch 2020-09-08 2020-09-08 Emergency Floyd LUCERO [facility] ERT [id number] Univers 16:00:00 16:00:00 OTF rivera [facility] Results Test Description Test Time Test Comments Results Result Comments Source Urinalysis 2020-09-09 00:55:00 Test Item Value Reference Range Interpretation Comme nts APPEARANCE (test code = Clear Clear 3299819363) COLOR (test code = 5416736930) Yellow Yellow PH (test code = 9189512139) 4.8-8.0 SP GRAVITY (test code = 1.003-1.030 7935845923) GLU U QUAL (test code = Normal Normal 1757215425) BLOOD (test code = 3145101366) Negative Negative KETONES (test code = 9135768585) Negative Negative PROTEIN (test code = 2887-8) Negative Negative UROBILIN (test code = Normal Normal 3288676767) BILIRUBIN (test code = Negative Negative 5854942809) NITRITE (test code = 9901261533) Negative Negative LEUK ASAD (test code = 25/uL Negative A 6506656677) RBC/HPF (test code = 4052217209) See_Comment [Automated message] The system which ge nerated this result transmit dennis reference range: 0 - 3 HP F. The reference range was not used to interpret th is result as normal/abnormal . WBC/HPF (test code = 0172550497) See_Comment H [Automated message] The system which ge nerated this result transmit dennis reference range: 0 - 5 HP F. The reference range was not used to interpret th is result as normal/abnormal . BACTERIA (test code = Negative Negative 8799816218) MUCOUS (test code = 8496220081) Slight Negative LPF A SQ EPITH (test code = HPF 0258268950) Lab Interpretation (test code = Abnormal 09265-8) [facility] (ALB, T.PRO, BILI T, BU/BC, ALT, AST, ALK PHOS)2020-09-08 22:38:00 Test Item Value Reference Range Interpretation Comments TOTAL BILI (test code = 3316835249) 0.5 mg/dL 0.1-1.1 BILI UNCON (test code = 7018552421) 0.4 mg/dL 0.1-1.1 BILI CONJ (test code = 6590261617) 0.0 mg/dL 0-0.3 T PROTEIN (test code = 9670093377) 9.5 g/dL 6.3-8.2 H ALBUMIN (test code = 5142161495) 4.8 g/dL 3.5-5 ALK PHOS (test code = 1152746202) 90 U/L 34-122 ALTv (test code = 1742-6) 10 U/L 5-35 AST(SGOT) (test code = 0842374515) 23 U/L 13-40 Lab Interpretation (test code = Abnormal 76680-2) [facility] Met[facility] (NA, K, CL, CO2, GLUCOSE, BUN, CREATININE, CA)2020-09-08 22:36:00 Test Item Value Reference Range Interpretation Comments NA (test code = 139 mmol/L 135-145 0501094605) K (test code = 3.5 mmol/L 3.5-5 6401456307) CL (test code = 103 mmol/L 98-108 0417258462) CO2 TOTAL (test code = 25 mmol/L 23-31 4063807054) AGAP (test code = 2-16 8408782125) BUN (test code = 15 mg/dL 7-23 4867200306) GLUCOSE (test code = 133 mg/dL 70-110 H 5359036846) CREATININE (test code = 0.72 mg/dL 0.5-1.04 4698663531) CALCIUM (test code = 8.9 mg/dL 8.6-10.6 5097927954) eGFR Calculation mL/min/1.73m2 (Non-) (test code = 8619343018) eGFR Calculation mL/min/1.73m2 () (test code = 7866220854) MANE (test code = MANE) Association of [...] tests). Lab Interpretation Abnormal (test code = 87100-9) [facility] [id number] 22:36:00 Test Item Value Reference Range Interpretation Comments LIPASE (test code = 1664634174) 92 U/L 0-220 Lab Interpretation (test code = Normal 75962-3) [facility] with [id number] 22:25:00 Test Item Value Reference Range Interpretation Comments WBC (test code = See_Comment [Automated 9495-2) message] The sy stem which generated this result transmitted reference range : 4.30 - 11.10 10*3/?L. The reference range was not used to interpret this result as normal/abnormal . RBC (test code = See_Comment L [Automated 116-8) message] The sy stem which generated this [...] RDW-SD (test code = 41.8 fL 39-49.9 97362-0) RDW-CV (test code = 12.5 % 12-15.5 788-0) PLT (test code = See_Comment [Automated 777-3) message] The sy stem which generated this result transmitted reference range : 166 - 358 10*3/ ?L. The reference r georgina was not used to interpret this result as normal/abnormal . MPV (test code = 10.3 fL 9.5-12.9 83664-7) NRBC/100 WBC (test See_Comment [Automat ed code = 2553423325) message] The system which generated this result transmitted reference range : 0.0 - 10.0 /100 WBCs. The refer ence range was not u sed to interpret th is result as normal/abnormal . NRBC x10^3 (test code <0.01 See_Comment [Auto mated = 7867183544) message] The s ystem which generated this result transmitted reference range : 10*3/?L. The reference range was not used to interpret this result as normal/abnormal . GRAN MAT (NEUT) % 62.6 % (test code = 770-8) IMM GRAN % (test code 0.70 % = 2012203808) LYMPH % (test code = 28.6 % 736-9) MONO % (test code = 6.0 % 5905-5) EOS % (test code = 1.6 % 713-8) BASO % (test code = 0.5 % 706-2) GRAN MAT x10^3(ANC) 5.09 10*3/uL 1.88-7.09 (test code = 9578019264) IMM GRAN x10^3 (test 0.06 10*3/uL 0-0.06 code = 2702838529) LYMPH x10^3 (test code 2.33 10*3/uL 1.32-3.29 = 731-0) MONO x10^3 (test code 0.49 10*3/uL 0.33-0.92 = 742-7) EOS x10^3 (test code = 0.13 10*3/uL 0.03-0.39 711-2) BASO x10^3 (test code 0.04 10*3/uL 0.01-0.07 = 704-7) Lab Interpretation Abnormal (test code = 27004-5) [facility] [id number] 22:13:00 Test Item Value Reference Range Interpretation Comments POCT PREG (test code = 1605) neg On board controls acceptable with yes C Line (test code = 3574) POCT PREG LOT # (test code = 3575) [id number] POCT PREG TEST DATE (test 04/13/2022 code = 3576) Lab Interpretation (test code = Normal 10870-0) [facility]"
[2022-09-28 06:50] LABS: Absolute Lymphocytes (CBC) 1.6 K/uL (0.7-4.9); Hematocrit 32.7 % (36.0-45.0); Lymphocytes % 25.9 % (15.3-44.8); MCV 89.8 fL (80-100); MPV 8.1 fL (7.6-11.3); RBC Red Blood Cell Count 3.64 M/uL (3.86-4.86)
[2022-09-28 07:07] LABS: Albumin 3.6 g/dL (3.4-5.0); Bilirubin Total 0.2 mg/dL (0.2-1.0); C-Reactive Protein 23.4 mg/L (<3.00); Potassium 3.5 mEq/L (3.5-5.1); Protein, Total 8.9 g/dL (6.4-8.2)
[2022-09-28] MEDS ORDERED: MORPHINE 4 MG/ML SYR ONE (07:15)
[2022-09-28] MEDS ORDERED: HYDROCORTISONE SUC 100 MG INJ ONE (07:15)
[2022-09-28] MEDS ORDERED: DIPHENHYDRAMINE 50 MG/ML VIAL ONE (07:15)
[2022-09-28] MEDS ORDERED: NA CHLORIDE 0.9% 1,000 ML ONE (07:16)
[2022-09-28] MEDS ORDERED: KETOROLAC 30 MG/ML INJ ONE (07:16)
[2022-09-28] MEDS ORDERED: ONDANSETRON 4 MG/2 ML VIAL ONE (07:16)
--- NOTE | 2022-09-28 08:03 | EDPHYS ---
Physician Documentation [facility] Name: Savanna Flynn Age: 27 yrs Sex: Female : 1995 Arrival Date: 09/28/2022 Time: 05:52 Bed 3 Private MD: ED Physician Gerald Puckett HPI: 09/28 05:56 This 27 yrs old Female presents to ER via Unassigned with complaints of Pain sp4 All Over. 07:55 27-year-old female with history of fibromyalgia, rheumatoid arthritis, small vessel sp4 vasculitis, Sjogren's syndrome presents with worsening generalized pain that is moderate that came on spontaneously starting this morning. Patient states that she has not taken any rheumatoid arthritis medication for 1 year and has not had follow-up for the past year. . Historical: - Allergies: 06:31 No Known Allergies; kl - Home Meds: 06:31 None [Active]; kl - PMHx: 06:31 Arthritis; Fibromyalgia; shogrens; vasculitis; kl - PSHx: 06:31 section; kl - Immunization history:: Adult Immunizations up to date. - Social history:: Smoking status: Patient denies any tobacco usage or history of. - Family history:: not pertinent. ROS: 07:55 Constitutional: Negative for fever, chills, and weight loss, positive for generalized sp4 pain and discomfort Eyes: Negative for injury, pain, redness, and discharge, ENT: Negative for injury, pain, and discharge, Allergy/Immunology: Negative for hives, rash, and allergies Endocrine: Negative for neck swelling, polydipsia, polyuria, polyphagia, and weight changes Hematologic/Lymphatic: Negative for swollen nodes, abnormal bleeding, and unusual bruising 07:55 All other systems are negative. Exam: 07:55 Constitutional: This is a well developed, well nourished patient who is awake, alert, sp4 and in no acute distress. Head/Face: Normocephalic, atraumatic. Eyes: Pupils equal round and reactive to light, extra-ocular motions intact. Lids and lashes normal. Conjunctiva and sclera are not injected. Cornea within normal limits. Periorbital areas with no swelling, redness, or edema. ENT: Nares patent. No nasal discharge, no septal abnormalities noted. Tympanic membranes are normal and external auditory canals are clear. Oropharynx with no redness, swelling, or masses, exudates, or evidence of obstruction, uvula midline. Mucous membranes moist. Neck: Trachea midline, no thyromegaly or masses palpated, and no cervical lymphadenopathy. Supple, full range of motion without nuchal rigidity, or vertebral point tenderness. No Meningismus. Chest/axilla: Normal chest wall appearance and motion. Nontender with no deformity. No lesions are appreciated. Cardiovascular: Regular rate and rhythm with a normal S1 and S2. No gallops, murmurs, or rubs. Normal PMI, no JVD. No pulse deficits. Respiratory: Lungs have equal breath sounds bilaterally, clear to auscultation and percussion. No rales, rhonchi or wheezes noted. No increased work of breathing, no retractions or nasal flaring. Abdomen/GI: Soft, non-tender, with normal bowel sounds. No distension or tympany. No guarding or rebound. No evidence of tenderness throughout. Back: No spinal tenderness. No costovertebral tenderness. Skin: Warm, dry with normal turgor. Normal color with no rashes, no lesions, and no evidence of cellulitis. MS/ Extremity: Pulses equal, no cyanosis. Neurovascular intact. Full, normal range of motion. Neuro: Awake and alert, GCS 15, oriented to person, place, time, and situation. Cranial nerves II-XII grossly intact. Motor strength 5/5 in all extremities. Sensory grossly intact. Psych: Awake, alert, with orientation to person, place and time. Behavior, mood, and affect are within normal limits Vital Signs: 06:20 BP 115 / 74; Pulse 84; Resp 16 S; Pulse Ox 100% on R/A; ha1 06:30 BP 116 / 68; Pulse 84; Resp 18; Temp 97.7; Pulse Ox 100% on R/A; Pain 9/10; kl 06:30 Pain Scale: Adult kl MDM: 06:07 Patient medically screened. sp4 07:55 Differential Diagnosis sepsis, Rheumatoid arthritis flare, vasculitis, septicemia, sp4 acute COVID-19. Data reviewed: vital signs, nurses notes, lab test result(s), CBC, electrolytes, hepatic panel, urinalysis. Response to treatment: the patient's symptoms have markedly improved after treatment, the patient is now symptom free, patient is well hydrated. ED course: Patient has improved after IV medications in the ER, patient will be prescribed prednisone 10 mg daily for the next 10 days high-dose ibuprofen and tramadol for pain as needed also Phenergan for nausea as needed, patient will be advised to see her industrial paramedic for consistent follow-up for management of rheumatoid arthritis and vasculitis. 09/28 05:57 Order name: Urine Test (obtain specimen) sp4 09/28 06:27 Order name: Saline Lock; Complete Time: 06:43 sp4 09/28 06:26 Order name: CBC with Diff; Complete Time: 07:46 sp4 09/28 06:26 Order name: CRP; Complete Time: 07:46 sp4 09/28 06:26 Order name: CMP; Complete Time: 07:46 sp4 Administered Medications: 07:28 Drug: NS 0.9% IV 1000 ml Route: IV; Rate: 1 bolus; Site: right antecubital; ll1 07:28 Drug: Ondansetron IVP 4 mg Route: IVP; Site: right antecubital; ll1 07:28 Drug: Solu-CORTEF IVP 100 mg Route: IVP; Site: right antecubital; ll1 07:28 Drug: Ketorolac IVP 30 mg Route: IVP; Site: right antecubital; ll1 07:28 Drug: diphenhydrAMINE IVP 25 mg Route: IVP; Site: right antecubital; ll1 07:28 Drug: morphine IVP or IV 4 mg Route: IVP; Infused Over: 4 mins; Site: right antecubital;ll1 Disposition Summary: 09/28/22 08:02 Discharge Ordered Location: Home sp4 Problem: new sp4 Symptoms: have improved sp4 Condition: Stable sp4 Diagnosis - Rheumatoid arthritis, unspecified sp4 - Acute rheumatoid arthritis flare, acute on chronic vasculitis, elevated sp4 inflammatory markers, history of Sjogren syndrome, generalized pain Followup: sp4 - With: Private Physician - When: 7 - 10 days - Reason: Recheck today's complaints Forms: - Medication Reconciliation Form sp4 - Thank You Letter sp4 - Antibiotic Education sp4 - Prescription Opioid Use sp4 Signatures: Dispatcher [employer] Meenakshi Snider RN RN kl Attema, Lee, FNP-C FNP-Anthony Blandy, RN RN ll1 Gerald Puckett MD MD sp4 Corrections: (The following items were deleted from the chart) 06:46 05:58 Urinalysis W/Microscopic+U.LAB.BRZ ordered. EDMS EDMS 06:46 06:37 Urinalysis W/Microscopic+U.LAB.BRZ reviewed. la1 EDMS
--- NOTE | 2022-09-28 08:03 | ER ---
Nurse's Notes [facility] Name: Savanna Flynn Age: 27 yrs Sex: Female : 1995 Arrival Date: 09/28/2022 Time: 05:52 Bed 3 Private MD: Diagnosis: Rheumatoid arthritis, unspecified;Acute rheumatoid arthritis flare, acute on chronic vasculitis, elevated inflammatory markers, history of Sjogren syndrome, generalized pain Presentation: 09/28 06:30 Chief complaint: Patient states: pain all over due to RA flare. Coronavirus screen: kl Vaccine status: Patient reports receiving the 2nd dose of the covid vaccine. Ebola Screen: Patient negative for fever greater than or equal to 101.5 degrees Fahrenheit, and additional compatible Ebola Virus Disease symptoms. Initial Sepsis Screen: Does the patient meet any 2 criteria? No. Patient's initial sepsis screen is negative. Does the patient have a suspected source of infection? No. Patient's initial sepsis screen is negative. Risk Assessment: Do you want to hurt yourself or someone else? Patient reports no desire to harm self or others. 06:30 Method Of Arrival: Ambulatory 06:30 Acuity: SUBHASH 3 kl Triage Assessment: 06:32 General: Appears uncomfortable, well groomed, well developed, Behavior is calm, kl cooperative. Pain: Pain currently is 9 out of 10 on a pain scale. Noted to be grimacing. EENT: No deficits noted. Neuro: No deficits noted. Cardiovascular: No deficits noted. Respiratory: No deficits noted. GI: No deficits noted. No signs and/or symptoms were reported involving the gastrointestinal system. : No deficits noted. No signs and/or symptoms were reported regarding the genitourinary system. Derm: No deficits noted. No signs and/or symptoms reported regarding the dermatologic system. Historical: - Allergies: 06:31 No Known Allergies; kl - Home Meds: 06:31 None [Active]; kl - PMHx: 06:31 Arthritis; Fibromyalgia; shogrens; vasculitis; kl - PSHx: 06:31 section; kl - Immunization history:: Adult Immunizations up to date. - Social history:: Smoking status: Patient denies any tobacco usage or history of. - Family history:: not pertinent. Screenin:46 Abuse screen: Denies threats or abuse. Denies injuries from another. Nutritional ha1 screening: No deficits noted. Tuberculosis screening: No symptoms or risk factors identified. Assessment: 06:18 General: Appears comfortable, Behavior is calm, cooperative. Pain: Complains of pain in ha1 generalized Pain currently is 9 out of 10 on a pain scale. Neuro: Level of Consciousness is awake, alert, obeys commands, Oriented to person, place, time, situation. Cardiovascular: Capillary refill < 3 seconds Patient's skin is warm and dry. Respiratory: Airway is patent Respiratory effort is even, unlabored, Respiratory pattern is regular, symmetrical. GI: No signs and/or symptoms were reported involving the gastrointestinal system. Abdomen is flat, non-distended. : No signs and/or symptoms were reported regarding the genitourinary system. EENT: No signs and/or symptoms were reported regarding the EENT system. Derm: Skin is pink, warm \T\ dry. Musculoskeletal: Circulation, motion, and sensation intact. Range of motion: intact in all extremities. Vital Signs: 06:20 BP 115 / 74; Pulse 84; Resp 16 S; Pulse Ox 100% on R/A; ha1 06:30 BP 116 / 68; Pulse 84; Resp 18; Temp 97.7; Pulse Ox 100% on R/A; Pain 9/10; kl 06:30 Pain Scale: Adult kl ED Course: 05:52 Patient arrived in ED. ja2 05:56 Gerald Puckett MD is Attending Physician. sp4 06:31 Triage completed. kl 06:35 Inserted saline lock: 20 gauge in right antecubital area, using aseptic technique. ha1 Blood collected. 06:43 CMP Sent. ha1 06:43 CRP Sent. ha1 06:43 CBC with Diff Sent. ha1 07:08 Hunter Willson, RN is Primary Nurse. as6 07:43 Primary Nurse role handed off by Hunter Willson, TYRON ll1 07:43 Maia Iglesias, TYRON is Primary Nurse. ll1 Administered Medications: 07:28 Drug: NS 0.9% IV 1000 ml Route: IV; Rate: 1 bolus; Site: right antecubital; ll1 07:28 Drug: Ondansetron IVP 4 mg Route: IVP; Site: right antecubital; ll1 07:28 Drug: Solu-CORTEF IVP 100 mg Route: IVP; Site: right antecubital; ll1 07:28 Drug: Ketorolac IVP 30 mg Route: IVP; Site: right antecubital; ll1 07:28 Drug: diphenhydrAMINE IVP 25 mg Route: IVP; Site: right antecubital; ll1 07:28 Drug: morphine IVP or IV 4 mg Route: IVP; Infused Over: 4 mins; Site: right antecubital;1 Outcome: 08:02 Discharge ordered by sp4 Signatures: Meenakshi Iglesias RN RN kl Maia Iglesias RN RN ll1 Anila Santos Ashby, RN RN as6 Zoe Guan RN RN ha1 Potepalov, Sergey, MD MD sp4
[2022-09-28 10:33] VITALS: O2SAT 100
[2022-09-28 10:35] VITALS: TEMP 97.7
[2022-09-28 10:37] VITALS: BP 109/61
== END 2022-09-28 09:09 | disposition home or self-care (01) ==
LOC: ER 05:48
DX: M06.9 Rheumatoid arthritis, unspecified (principal); M35.0B Sjogren syndrome with vasculitis; R52 Pain, unspecified; R79.82 Elevated C-reactive protein (CRP)
CPT/HCPCS: 96361; 85025; 36415; 80053; 86140; 96375; 96374; 99284; J1200; J1720; J2405; J7030

== ENCOUNTER 2022-11-08 07:28 | Emergency (ER) | payer BC ==
--- OUTSIDE RECORDS SUMMARY | 2022-11-08 07:31 | XMS REPORT | Continuity of Care Document ---
:1995 Author Organization [facility] t Address [address] [place] [address] Care Team Providers Name Role Phone Otf Plata Attending Clinician OTF LUCERO Attending Clinician Unavailable Payers Payer Name Policy Type Policy Number Effective Date Expiration Date S ource Problems Condition Condition Condition Status Onset Resolution Last Treating Co mments Source Name Details Category Date Date Treatment Clinician Date No known No known Disease Unive rs active active ity of problems problems [facility] Allergies, Adverse Reactions, Alerts Allergy Allergy Status Severity Reaction(s) Onset Inactive Treating Comm ents Source Name Type Date Date Clinician NO KNOWN Drug Active Univers ALLERGIE Class ity of S [facility] Social History Social Habit Start Date Stop Date Quantity Comments Source Sex Assigned At Uni versity [facility] Exposure to SARS-CoV-2 Not sure [facility] [place] (event) [facility] Smoking Status Start Date Stop Date Source Unknown if ever smoked Universit y [facility] Medications Ordered Filled Start Stop Current Ordering Indication Dosage Frequency Signature Comments Components Source Medication Medication Date Date Medication? Clinician (SIG) Name Name ketorolac 2020- No 15mg 15 mg, Unive rs (TORADOL) 09-09 Slow IV ity of injection 00:45: 23:47 Push, [place] 15 mg 00 :00 ONCE, 1 Medical dose, [facility] Branch 09/08/20 at 1845, RACHEL
Fa culty member approving Restricted medication : ADEEL BAKER ondansetron 2020- No 4mg 4 mg, Slow Univers (ZOFRAN 2- IV Push, ity of (PF)) 23:15: 22:24 ONCE, 1 [place] injection 4 00 :00 dose, [facility] Med ical mg 09/08/20 at Branch 1715, [...] dose, Sandi Med ical 1:1:1 09/08/20 at [place] (FIRST-MOUT 1630, RACHEL HWASH BLM) oral suspension 15 mL NaCl 0.9% 2020- No 1000mL at 999 Uni vers (NS) bolus 09-08 02-26 mL/hr, ity of infusion 22:15: 00:50 1,000 mL, Navin as 1,000 mL 00 :00 IV Medical Infusion, [place] ONCE, 1 dose, [facility] 09/08/20 at 1615, RACHEL ondansetron Yes [id number] 4mg Take 1 Univers 4 mg 2-25 tablet by ity of disintegrat 00:00: mouth [place] ing tablet 00 every 8 Medica l (eight) Branch hours as needed for Nausea and Vomiting (N/V). ibuprofen Yes [id number] 600mg Take 1 Univers 600 mg 2-25 tablet by ity of tablet 00:00: mouth [place] 00 every 8 Medical (eight) Branch hours as needed for Pain (scale 4-6). Nitrofurant 2020- No [id number] 100mg Take 1 Univers oin&Nit. 2-25 03-03 capsule by ity of [place] 00:00: 05:59 mouth 2 Navin as (MACROBID) 00 :00 (two) Medical 100 mg times [place] capsule daily for 5 days. Vital Signs Vital Name Observation Time Observation Value Comments Source Systolic blood 2020-09-08 23:45:00 112 mm[Hg] Univer sity of pressure [facility] Diastolic blood 2020-09-08 23:45:00 77 mm[Hg] [facility] Heart rate 2020-09-08 23:45:00 83 /min [facility] Respiratory rate 2020-09-08 23:45:00 18 /min [facility] Oxygen saturation in 2020-09-08 23:45:00 100 /min [facility] Arterial blood by [facility] Pulse oximetry [place] Body temperature 2020-09-08 21:56:00 36.61 Shira [facility] Body weight 2020-09-08 21:56:00 62.143 kg [facility] Procedures Procedure Date / Time Performed Performing Clinician Sour e URINALYSIS 2020-09-09 00:27:00 Otf Lucero [facility] US GALL BLADDER 2020-09-08 23:30:50 Otf Lucero [facility] LIPASE 2020-09-08 22:13:00 Otf Lucero [facility] HEPATIC FUNCTION PANEL 2020-09-08 22:13:00 Otf Lucero [facility] ([id number]) [facility] (ALB,T.PRO,BILI T,BU/BC,ALT,AST,ALK PHOS) BASIC METABOLIC PANEL 2020-09-08 22:13:00 Otf Lucero [facility] (NA, K, CL, CO2, Medical Branch GLUCOSE, BUN, CREATININE, CA) CBC WITH DIFF 2020-09-08 22:13:00 Otf Lucero [facility] POCT TEST 2020-09-08 22:13:00 Otf Lucero [facility] NOTICE OF PRIVACY 2020-09-08 21:50:49 Doctor Unassigned, No [facility] PRACTICES Name [facility] CONSENT/REFUSAL FOR 2020-09-08 21:50:40 Doctor Unassigned, No [facility] DIAGNOSIS AND Name Medical [place] TREATMENT Encounters Start End Encounter Admission Attending Care Care Encounter Source Date/Time Date/Time Type Type Clinicians Facility Department ID 2020-09-08 2020-09-08 Emergency HEAVENLY Lucero [id number] [facility] 16:00:00 19:27:00 Otf Sheikh [id number] i [facility] [id number] [facility] [id number] [facility] 084 Branch 2020-09-08 2020-09-08 Emergency Floyd LUCERO [facility] ERT [id number] Univers 16:00:00 16:00:00 OTF rivera [facility] Results Test Description Test Time Test Comments Results Result Comments Source Urinalysis 2020-09-09 00:55:00 Test Item Value Reference Range Interpretation Comme nts APPEARANCE (test code = Clear Clear 1223840084) COLOR (test code = 6110620765) Yellow Yellow PH (test code = 8773802485) 4.8-8.0 SP GRAVITY (test code = 1.003-1.030 6190736213) GLU U QUAL (test code = Normal Normal 3804238781) BLOOD (test code = 6312192697) Negative Negative KETONES (test code = 4846701534) Negative Negative PROTEIN (test code = 2887-8) Negative Negative UROBILIN (test code = Normal Normal 5494125282) BILIRUBIN (test code = Negative Negative 9464195398) NITRITE (test code = 7365853421) Negative Negative LEUK ASAD (test code = 25/uL Negative A 9335278374) RBC/HPF (test code = 9256750292) See_Comment [Automated message] The system which ge nerated this result transmit dennis reference range: 0 - 3 HP F. The reference range was not used to interpret th is result as normal/abnormal . WBC/HPF (test code = 2607699836) See_Comment H [Automated message] The system which ge nerated this result transmit dennis reference range: 0 - 5 HP F. The reference range was not used to interpret th is result as normal/abnormal . BACTERIA (test code = Negative Negative 0292512005) MUCOUS (test code = 2108411943) Slight Negative LPF A SQ EPITH (test code = HPF 2694679112) Lab Interpretation (test code = Abnormal 01929-1) [facility] (ALB, T.PRO, BILI T, BU/BC, ALT, AST, ALK PHOS)2020-09-08 22:38:00 Test Item Value Reference Range Interpretation Comments TOTAL BILI (test code = 9502064833) 0.5 mg/dL 0.1-1.1 BILI UNCON (test code = 7194716243) 0.4 mg/dL 0.1-1.1 BILI CONJ (test code = 9792262461) 0.0 mg/dL 0-0.3 T PROTEIN (test code = 0966847243) 9.5 g/dL 6.3-8.2 H ALBUMIN (test code = 5956128307) 4.8 g/dL 3.5-5 ALK PHOS (test code = 7758840312) 90 U/L 34-122 ALTv (test code = 1742-6) 10 U/L 5-35 AST(SGOT) (test code = 3668102369) 23 U/L 13-40 Lab Interpretation (test code = Abnormal 69264-5) [facility] Met[facility] (NA, K, CL, CO2, GLUCOSE, BUN, CREATININE, CA)2020-09-08 22:36:00 Test Item Value Reference Range Interpretation Comments NA (test code = 139 mmol/L 135-145 5495439811) K (test code = 3.5 mmol/L 3.5-5 7315306257) CL (test code = 103 mmol/L 98-108 9125258320) CO2 TOTAL (test code = 25 mmol/L 23-31 8578266567) AGAP (test code = 2-16 6254708241) BUN (test code = 15 mg/dL 7-23 2232370174) GLUCOSE (test code = 133 mg/dL 70-110 H 0324445551) CREATININE (test code = 0.72 mg/dL 0.5-1.04 1612955430) CALCIUM (test code = 8.9 mg/dL 8.6-10.6 1626630631) eGFR Calculation mL/min/1.73m2 (Non-) (test code = 5469196991) eGFR Calculation mL/min/1.73m2 () (test code = 4471043620) MANE (test code = MANE) Association of [...] tests). Lab Interpretation Abnormal (test code = 15324-9) [facility] [id number] 22:36:00 Test Item Value Reference Range Interpretation Comments LIPASE (test code = 7368715774) 92 U/L 0-220 Lab Interpretation (test code = Normal 58962-7) [facility] with [id number] 22:25:00 Test Item Value Reference Range Interpretation Comments WBC (test code = See_Comment [Automated 8756-2) message] The sy stem which generated this result transmitted reference range : 4.30 - 11.10 10*3/?L. The reference range was not used to interpret this result as normal/abnormal . RBC (test code = See_Comment L [Automated 429-8) message] The sy stem which generated this [...] RDW-SD (test code = 41.8 fL 39-49.9 50492-7) RDW-CV (test code = 12.5 % 12-15.5 788-0) PLT (test code = See_Comment [Automated 777-3) message] The sy stem which generated this result transmitted reference range : 166 - 358 10*3/ ?L. The reference r georgina was not used to interpret this result as normal/abnormal . MPV (test code = 10.3 fL 9.5-12.9 09638-9) NRBC/100 WBC (test See_Comment [Automat ed code = 8488461089) message] The system which generated this result transmitted reference range : 0.0 - 10.0 /100 WBCs. The refer ence range was not u sed to interpret th is result as normal/abnormal . NRBC x10^3 (test code <0.01 See_Comment [Auto mated = 2886650681) message] The s ystem which generated this result transmitted reference range : 10*3/?L. The reference range was not used to interpret this result as normal/abnormal . GRAN MAT (NEUT) % 62.6 % (test code = 770-8) IMM GRAN % (test code 0.70 % = 7689249897) LYMPH % (test code = 28.6 % 736-9) MONO % (test code = 6.0 % 5905-5) EOS % (test code = 1.6 % 713-8) BASO % (test code = 0.5 % 706-2) GRAN MAT x10^3(ANC) 5.09 10*3/uL 1.88-7.09 (test code = 2248628864) IMM GRAN x10^3 (test 0.06 10*3/uL 0-0.06 code = 9693056815) LYMPH x10^3 (test code 2.33 10*3/uL 1.32-3.29 = 731-0) MONO x10^3 (test code 0.49 10*3/uL 0.33-0.92 = 742-7) EOS x10^3 (test code = 0.13 10*3/uL 0.03-0.39 711-2) BASO x10^3 (test code 0.04 10*3/uL 0.01-0.07 = 704-7) Lab Interpretation Abnormal (test code = 28937-4) [facility] [id number] 22:13:00 Test Item Value Reference Range Interpretation Comments POCT PREG (test code = 1605) neg On board controls acceptable with yes C Line (test code = 3574) POCT PREG LOT # (test code = 3575) [id number] POCT PREG TEST DATE (test 04/13/2022 code = 3576) Lab Interpretation (test code = Normal 64791-7) [facility]"
--- NOTE | 2022-11-08 09:07 | RAD REPORT ---
EXAM DESCRIPTION: US - Pelvis Complete - 11/08/2022 8:28 am CLINICAL HISTORY: BLEEDING, PREG HOME TEST + Pelvic pain. COMPARISON: Transvaginal OB dated 11/08/2022 FINDINGS: The uterus is normal in size, shape and echotexture. The uterus measures 7.8 x 4.0 x 3.7 c m. The endometrial stripe measures 6 mm, no IUP. Both ovaries are normal in size, shape and echotexture. The right ovary measures 3.1 x 2.0 x 1.3 cm. The left ovary measures 2.7 x 2.1 x 1.6 cm.. No ovarian or parovarian lesions. No adnexal masses. Normal Doppler blood flow was demonstrated to both ovaries. No significant pelvic ascites. IMPRESSION: Normal examination. No IUP is visualized.Follow-up would be recommended if HCG levels ri se over time.
[2022-11-08 10:36] LABS: Hematocrit 33.1 % (36.0-45.0); Lymphocytes % 33.3 % (15.3-44.8); MCV 91.6 fL (80-100); MPV 7.7 fL (7.6-11.3); RBC Red Blood Cell Count 3.62 M/uL (3.86-4.86)
[2022-11-08 10:53] LABS: BUN Blood Urea Nitrogen 16 mg/dL (7-18); Bicarbonate 30 mEq/L (21-32); Glomerular Filtration Rate 105 ml/min (=/>90); Glucose Level 85 mg/dL (74-106); Potassium 3.3 mEq/L (3.5-5.1); Sodium Level 137 mEq/L (136-145)
[2022-11-08 10:59] LABS: HCG, Quantitative < 1 mIU/mL (1-3)
--- NOTE | 2022-11-08 11:15 | ER ---
Nurse's Notes [facility] Name: Savanna Flynn Age: 27 yrs Sex: Female : 1995 Arrival Date: 11/08/2022 Time: 07:28 Bed 18 Private MD: Diagnosis: Complete or unspecified spontaneous without complication;Abnormal uterine and vaginal bleeding, unspecified Presentation: 11/08 07:37 Chief complaint: Patient states: Had a positive test this a few days ago. ll1 Vaginal bleeding with clots started yesterday. Pain is still severe. G6, P3. Coronavirus screen: Client denies travel out of the [place] in the last 14 days. At this time, the client does not indicate any symptoms associated with coronavirus-19. Ebola Screen: Patient denies travel to an Ebola-affected area in the 21 days before illness onset. Initial Sepsis Screen: Does the patient meet any 2 criteria? No. Patient's initial sepsis screen is negative. Does the patient have a suspected source of infection? No. Patient's initial sepsis screen is negative. Risk Assessment: Do you want to hurt yourself or someone else? Patient reports no desire to harm self or others. Onset of symptoms was November 07, 2022. 07:37 Method Of Arrival: Ambulatory ll1 07:37 Acuity: SUBHASH 3 ll1 Triage Assessment: 07:39 General: Appears uncomfortable, Behavior is calm, cooperative, appropriate for age. ll1 Pain: Complains of pain in pelvis Quality of pain is described as aching. Neuro: No deficits noted. Cardiovascular: No deficits noted. Respiratory: No deficits noted. : Reports vaginal bleeding that is with clots, moderate flow. 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 - Social history:: Smoking status: Patient reports the use of cigarette tobacco products, denies chronic smoking, but will smoke occasionally. Screenin:20 [facility] ED Fall Risk Assessment (Adult) History of falling in the last 3 months, nj1 including since admission No falls in past 3 months (0 pts) Confusion or Disorientation No (0 pts) Intoxicated or Sedated No (0 pts) Impaired Gait No (0 pts) Mobility Assist Device Used No (0 pt) Altered Elimination No (0 pt) Score/Fall Risk Level 0 - 2 = Low Risk Oriented to surroundings, Maintained a safe environment, Hourly rounding (assess needs \T\ fall precautionary measures) done. 10:20 Abuse screen: Denies threats or abuse. Denies injuries from another. Nutritional nj1 screening: No deficits noted. Tuberculosis screening: No symptoms or risk factors identified. Assessment: 10:20 Reassessment: Patient appears in no apparent distress at this time. Patient and/or me1 family updated on plan of care and expected duration. Pain level reassessed. Patient is alert, oriented x 3, equal unlabored respirations, skin warm/dry/pink. Pain: Complains of pain in pelvis Pain currently is 6 out of 10 on a pain scale. Neuro: Level of Consciousness is awake, alert, obeys commands, Oriented to person, place, time, situation. Cardiovascular: Patient's skin is warm and dry. Respiratory: Airway is patent Respiratory effort is even, unlabored. 10:20 : Reports cramping, vaginal bleeding that is. nj1 11:30 Reassessment: Patient appears in no apparent distress at this time. Patient and/or me1 family updated on plan of care and expected duration. Pain level reassessed. Patient is alert, oriented x 3, equal unlabored respirations, skin warm/dry/pink. Pain: Complains of pain in pelvis Pain currently is 6 out of 10 on a pain scale. Quality of pain is described as crampy. Vital Signs: 07:37 BP 119 / 81; Pulse 94; Resp 16; Temp 98.6; Pulse Ox 97% ; Pain 8/10; ll1 07:37 Weight 61.23 kg; Height 5 ft. 2 in. ; ll1 10:40 BP 106 / 69; Pulse 88; Resp 16; Pulse Ox 99% ; Pain 6/10; nj1 11:30 Pulse 88; Resp 17; Pulse Ox 100% on R/A; Pain 6/10; nj1 07:37 Body Mass Index 24.69 (61.23 kg, 157.48 cm) ll1 07:37 Pain Scale: Adult ll1 10:40 Pain Scale: Adult nj1 11:30 Pain Scale: Adult nj1 ED Course: 07:30 Patient arrived in ED. rg4 07:31 Juanjo Summers DO is Attending Physician. ms3 07:39 Triage completed. ll1 07:40 Arm band placed on. ll1 08:29 Pelvis Complete In Process Unspecified. EDMS 08:30 US Transvaginal Ob In Process Unspecified. EDMS 09:01 Patient placed in an exam room, on a stretcher. ll1 10:02 Miriam Flores, RN is Primary Nurse. db 10:03 Erum Richards, RN is Primary Nurse. nj1 10:20 Patient has correct armband on for positive identification. Bed in low position. Call nj1 light in reach. 10:27 Primary Nurse role handed off by Erum Richards, TYRON 10:29 Erum Richards, TYRON is Primary Nurse. nj1 10:36 Abo/rh Typing Sent. nj1 10:36 Basic Metabolic Panel Sent. nj1 10:36 CBC with Diff Sent. nj1 11:30 No provider procedures requiring assistance completed. nj1 11:30 IV discontinued, intact, bleeding controlled. nj1 Administered Medications: No medications were administered Medication: 11:51 VIS not applicable for this client. nj1 Outcome: 11:14 Discharge ordered by MD. ms3 11:30 Discharged to home ambulatory. nj1 11:30 Condition: stable 11:30 Discharge instructions given to patient, Instructed on discharge instructions, follow up and referral plans. Demonstrated understanding of instructions, follow-up care. 11:30 Patient left the ED. nj1 Signatures: Dispatcher [employer] EDWY Rosa Escalante RN RN ss Garcia, Rubi rg4 Maia Iglesias RN RN ll1 Juanjo Summers DO DO ms3 Miriam Flores, RN TYRON db Erum Rcihards, TYRON RN nj1 Corrections: (The following items were deleted from the chart) 07:59 07:37 Chief complaint: Patient states: Had a positive test this past week. ll1 Vaginal bleeding with clots started yesterday. Pain is still severe. G6, P3 ll1 11:51 11:51 No provider procedures requiring assistance completed. nj1 nj1 12:02 11:53 Patient left the ED. nj1 nj1
--- NOTE | 2022-11-08 11:15 | EDPHYS ---
Physician Documentation [facility] Name: Savanna Flynn Age: 27 yrs Sex: Female : 1995 Arrival Date: 11/08/2022 Time: 07:28 Bed 18 Private MD: ED Physician Juanjo Summers HPI: 11/08 07:46 This 27 yrs old Female presents to ER via Ambulatory with complaints of ms3 Vaginal Bleeding, + Preg <12wks. 07:46 27-year-old female with past medical history of Sjogren's, fibromyalgia, vasculitis, ms3 rheumatoid arthritis presents for vaginal bleeding and lower abdominal cramping. Patient states her last menstrual period was August 18, 2022. Patient states she is a -1-2-3. Patient states her pain is an 8/10 and cramping. Patient denies alleviating or inciting factors.. 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 - Social history:: Smoking status: Patient reports the use of cigarette tobacco products, denies chronic smoking, but will smoke occasionally. ROS: 07:46 Constitutional: Negative for fever, and chills. Neck: Negative for injury, pain, and ms3 swelling, Cardiovascular: Negative for chest pain, and palpitations. Respiratory: Negative for shortness of breath, cough, wheezing, and pleuritic chest pain, Abdomen/GI: Negative for abdominal pain, nausea, vomiting, diarrhea, and constipation, MS/Extremity: Negative for injury and deformity, Skin: Negative for injury, rash, and discoloration, Neuro: Negative for headache, weakness, numbness, tingling. 07:46 : Positive for vaginal bleeding. 07:46 All other systems are negative. Exam: 07:46 Constitutional: This is a well developed, well nourished patient who is awake, alert, ms3 and in no acute distress. Head/Face: Normocephalic, atraumatic. Neck: Trachea midline, no cervical lymphadenopathy. Supple, full range of motion without nuchal rigidity, or vertebral point tenderness. No Meningismus. Chest/axilla: Normal chest wall appearance and motion. Nontender with no deformity. Cardiovascular: Regular rate and rhythm with a normal S1 and S2. No gallops, murmurs, or rubs. Normal PMI, no JVD. No pulse deficits. Respiratory: Lungs have equal breath sounds bilaterally, clear to auscultation and percussion. No rales, rhonchi or wheezes noted. No increased work of breathing, no retractions or nasal flaring. Abdomen/GI: Soft, non-tender, with normal bowel sounds. No distension or tympany. No guarding or rebound. No evidence of tenderness throughout. Skin: Warm, dry with normal turgor. Normal color with no rashes, no lesions, and no evidence of cellulitis. MS/ Extremity: Pulses equal, no cyanosis. Neurovascular intact. Full, normal range of motion. Vital Signs: 07:37 BP 119 / 81; Pulse 94; Resp 16; Temp 98.6; Pulse Ox 97% ; Pain 8/10; ll1 07:37 Weight 61.23 kg; Height 5 ft. 2 in. ; ll1 10:40 BP 106 / 69; Pulse 88; Resp 16; Pulse Ox 99% ; Pain 6/10; nj1 11:30 Pulse 88; Resp 17; Pulse Ox 100% on R/A; Pain 6/10; nj1 07:37 Body Mass Index 24.69 (61.23 kg, 157.48 cm) ll1 07:37 Pain Scale: Adult ll1 10:40 Pain Scale: Adult nj1 11:30 Pain Scale: Adult nj1 MDM: 07:46 Differential diagnosis: threatened Ab, complete Ab, missed Ab, ectopic . ms3 09:01 Patient medically screened. ms3 11:15 Data reviewed: vital signs, nurses notes, lab test result(s), Beta HCG: CBC, ms3 electrolytes, radiologic studies, ultrasound, and as a result, I will discharge patient. Counseling: I had a detailed discussion with the patient and/or guardian regarding: the historical points, exam findings, and any diagnostic results supporting the discharge/admit diagnosis, lab results, radiology results, the need for outpatient follow up, to return to the emergency department if symptoms worsen or persist or if there are any questions or concerns that arise at home. ED course: Discussed labs and ultrasound with patient. Patient to follow-up with her outside operator in 2 to 3 days. Patient understands and agrees with plan. All questions were answered. Return precautions discussed to include worsening symptoms, or any other concerns. 11/08 07:49 Order name: Abo/rh Typing ms3 11/08 07:49 Order name: Basic Metabolic Panel; Complete Time: 11:07 ms3 11/08 07:49 Order name: CBC with Diff; Complete Time: 11:07 ms3 11/08 07:49 Order name: Quantitative Hcg; Complete Time: 11:07 ms3 11/08 07:49 Order name: US Transvaginal Ob ms3 11/08 08:29 Order name: Pelvis Complete; Complete Time: 09:39 EDMS 11/08 07:49 Order name: IV Saline Lock; Complete Time: 10:35 ms3 11/08 07:49 Order name: Labs collected and sent; Complete Time: 10:35 ms3 11/08 07:49 Order name: NPO; Complete Time: 10:35 ms3 Administered Medications: No medications were administered Disposition Summary: 11/08/22 11:14 Discharge Ordered Location: Home ms3 Condition: Stable ms3 Diagnosis - Complete or unspecified spontaneous without complication ms3 - Abnormal uterine and vaginal bleeding, unspecified ms3 Followup: ms3 - With: Private Physician - When: 2 - 3 days - Reason: Recheck today's complaints Discharge Instructions: - Abnormal Uterine Bleeding ms3 - Miscarriage ms3 - Discharge Summary Sheet db Forms: - Medication Reconciliation Form ms3 - Thank You Letter ms3 - Antibiotic Education ms3 - Prescription Opioid Use ms3 - Work release form db Signatures: Dispatcher [employer] Maia Snider, RN RN ll1 Juanjo Summers DO DO ms3
[2022-11-08 12:03] VITALS: TEMP 98.6
[2022-11-08 12:04] VITALS: BP 106/69
[2022-11-08 12:05] VITALS: O2SAT 100
--- NOTE | 2022-11-09 09:49 | RAD REPORT ---
EXAM DESCRIPTION: US - Transvaginal OB - 11/08/2022 8:28 am CLINICAL HISTORY: BLEEDING, PREG HOME TEST + Pelvic pain. COMPARISON: Transvaginal OB dated 11/08/2022 FINDINGS: The uterus is normal in size, shape and echotexture. The uterus measures 7.8 x 4.0 x 3.7 c m. The endometrial stripe measures 6 mm, no IUP. Both ovaries are normal in size, shape and echotexture. The right ovary measures 3.1 x 2.0 x 1.3 cm . The left ovary measures 2.7 x 2.1 x 1.6 cm. . No ovarian or parovarian lesions. No adnexal masses. Normal Doppler blood flow was demonstrated to both ovaries. No significant pelvic ascites. IMPRESSION: Normal examination. No IUP is visualized. Follow-up would be recommended if HCG levels r ise over time.
== END 2022-11-08 11:53 | disposition home or self-care (01) ==
LOC: ER 07:28
DX: O03.9 Complete or unspecified spontaneous abortion without complication (principal)
CPT/HCPCS: 36415; 76817; 76856; 80048; 84702; 85025; 86900; 86901

== ENCOUNTER 2022-12-06 06:00 | Emergency (ER) | payer BC ==
--- OUTSIDE RECORDS SUMMARY | 2022-12-06 06:03 | XMS REPORT | Continuity of Care Document ---
:1995 Author Organization [facility] t Address [address] [place] [address] Care Team Providers Name Role Phone Otf Plata Attending Clinician OTF LUCERO Attending Clinician Unavailable Payers Payer Name Policy Type Policy Number Effective Date Expiration Date S ource Problems Condition Condition Condition Status Onset Resolution Last Treating Co mments Source Name Details Category Date Date Treatment Clinician Date No known No known Disease Unive rs active active ity of problems problems [facility] Allergies, Adverse Reactions, Alerts Allergy Allergy Status Severity Reaction(s) Onset Inactive Treating Comm ents Source Name Type Date Date Clinician NO KNOWN Drug Active Univers ALLERGIE Class ity of S [facility] Social History Social Habit Start Date Stop Date Quantity Comments Source Sex Assigned At Uni versity [facility] Exposure to SARS-CoV-2 Not sure [facility] [place] (event) [facility] Smoking Status Start Date Stop Date Source Unknown if ever smoked Universit y [facility] Medications Ordered Filled Start Stop Current Ordering Indication Dosage Frequency Signature Comments Components Source Medication Medication Date Date Medication? Clinician (SIG) Name Name ketorolac 2020- No 15mg 15 mg, Unive rs (TORADOL) 09-09 Slow IV ity of injection 00:45: 23:47 Push, [place] 15 mg 00 :00 ONCE, 1 Medical dose, [facility] Branch 09/08/20 at 1845, RACHEL
Fa culty member approving Restricted medication : ADEEL BAKER ondansetron 2020- No 4mg 4 mg, Slow Univers (ZOFRAN 09-08 IV Push, ity of (PF)) 23:15: 22:24 ONCE, 1 [place] injection 4 00 :00 dose, [facility] Med ical mg 09/08/20 at Branch [...] dose, Sandi Med ical 1:1:1 09/08/20 at [place] (FIRST-MOUT 1630, RACHEL HWASH BLM) oral suspension 15 mL NaCl 0.9% 2020- No 1000mL at 999 Uni vers (NS) bolus 09-08 02-26 mL/hr, ity of infusion 22:15: 00:50 1,000 mL, Navin as 1,000 mL 00 :00 IV Medical Infusion, [place] ONCE, 1 dose, [facility] 09/08/20 at 1615, RACHEL ondansetron Yes [id number] 4mg Take 1 Univers 4 mg 2-25 tablet by ity of disintegrat 00:00: mouth [place] ing tablet 00 every 8 Medica l (eight) Branch hours as needed for Nausea and Vomiting (N/V). ibuprofen Yes [id number] 600mg Take 1 Univers 600 mg 2-25 tablet by ity of tablet 00:00: mouth [place] 00 every 8 Medical (eight) Branch hours as needed for Pain (scale 4-6). Nitrofurant 2020- No [id number] 100mg Take 1 Univers oin&Nit. 2-25 03-03 capsule by ity of [place] 00:00: 05:59 mouth 2 Navin as (MACROBID) 00 :00 (two) Medical 100 mg times [place] capsule daily for 5 days. Vital Signs Vital Name Observation Time Observation Value Comments Source Systolic blood 2020-09-08 23:45:00 112 mm[Hg] Univer sity of pressure [facility] Diastolic blood 2020-09-08 23:45:00 77 mm[Hg] [facility] Heart rate 2020-09-08 23:45:00 83 /min [facility] Respiratory rate 2020-09-08 23:45:00 18 /min [facility] Oxygen saturation in 2020-09-08 23:45:00 100 /min [facility] Arterial blood by [facility] Pulse oximetry [place] Body temperature 2020-09-08 21:56:00 36.61 [facility] Body weight 2020-09-08 21:56:00 62.143 kg [facility] Procedures Procedure Date / Time Performed Performing Clinician Sour e URINALYSIS 2020-09-09 00:27:00 Otf Lucero [facility] US GALL BLADDER 2020-09-08 23:30:50 Otf Lucero [facility] LIPASE 2020-09-08 22:13:00 Otf Lucero [facility] HEPATIC FUNCTION PANEL 2020-09-08 22:13:00 Otf Lucero [facility] ([id number]) [facility] (ALB,T.PRO,BILI T,BU/BC,ALT,AST,ALK PHOS) BASIC METABOLIC PANEL 2020-09-08 22:13:00 Otf Lucero [facility] (NA, K, CL, CO2, Medical Branch GLUCOSE, BUN, CREATININE, CA) CBC WITH DIFF 2020-09-08 22:13:00 Otf Lucero [facility] POCT TEST 2020-09-08 22:13:00 Otf Lucero [facility] NOTICE OF PRIVACY 2020-09-08 21:50:49 Doctor Unassigned, No [facility] PRACTICES Name [facility] CONSENT/REFUSAL FOR 2020-09-08 21:50:40 Doctor Unassigned, No [facility] DIAGNOSIS AND Name Medical [place] TREATMENT Encounters Start End Encounter Admission Attending Care Care Encounter Source Date/Time Date/Time Type Type Clinicians Facility Department ID 2020-09-08 2020-09-08 Emergency HEAVENLY Lucero [id number] [facility] 16:00:00 19:27:00 Otf Sheikh [id number] i [facility] [place] [id number] [facility] [id number] [facility] 084 Branch 2020-09-08 2020-09-08 Emergency Floyd LUCERO [facility] ERT [id number] Univers 16:00:00 16:00:00 OTF rivera [facility] Results Test Description Test Time Test Comments Results Result Comments Source Urinalysis 2020-09-09 00:55:00 Test Item Value Reference Range Interpretation Comme nts APPEARANCE (test code = Clear Clear 7116237536) COLOR (test code = 1742963721) Yellow Yellow PH (test code = 3674323869) 4.8-8.0 SP GRAVITY (test code = 1.003-1.030 5934239099) GLU U QUAL (test code = Normal Normal 2413737134) BLOOD (test code = 6524298684) Negative Negative KETONES (test code = 0826304828) Negative Negative PROTEIN (test code = 2887-8) Negative Negative UROBILIN (test code = Normal Normal 2948524605) BILIRUBIN (test code = Negative Negative 2988959106) NITRITE (test code = 4124029727) Negative Negative LEUK ASAD (test code = 25/uL Negative A 0949282721) RBC/HPF (test code = 3969348905) See_Comment [Automated message] The system which ge nerated this result transmit dennis reference range: 0 - 3 HP F. The reference range was not used to interpret th is result as normal/abnormal . WBC/HPF (test code = 7316003755) See_Comment H [Automated message] The system which ge nerated this result transmit dennis reference range: 0 - 5 HP F. The reference range was not used to interpret th is result as normal/abnormal . BACTERIA (test code = Negative Negative 6382808809) MUCOUS (test code = 4749506412) Slight Negative LPF A SQ EPITH (test code = HPF 5551546118) Lab Interpretation (test code = Abnormal 77464-6) [facility] [place] [facility] (ALB, T.PRO, BILI T, BU/BC, ALT, AST, ALK PHOS)2020-09-08 22:38:00 Test Item Value Reference Range Interpretation Comments TOTAL BILI (test code = 0048079335) 0.5 mg/dL 0.1-1.1 BILI UNCON (test code = 8169895446) 0.4 mg/dL 0.1-1.1 BILI CONJ (test code = 1687875776) 0.0 mg/dL 0-0.3 T PROTEIN (test code = 0311104828) 9.5 g/dL 6.3-8.2 H ALBUMIN (test code = 4411015333) 4.8 g/dL 3.5-5 ALK PHOS (test code = 3114207469) 90 U/L 34-122 ALTv (test code = 1742-6) 10 U/L 5-35 AST(SGOT) (test code = 2397651360) 23 U/L 13-40 Lab Interpretation (test code = Abnormal 32612-8) [facility] [place] [facility] (NA, K, CL, CO2, GLUCOSE, BUN, CREATININE, CA)2020-09-08 22:36:00 Test Item Value Reference Range Interpretation Comments NA (test code = 139 mmol/L 135-145 5118994229) K (test code = 3.5 mmol/L 3.5-5 2050822912) CL (test code = 103 mmol/L 98-108 3298441893) CO2 TOTAL (test code = 25 mmol/L 23-31 9980700988) AGAP (test code = 2-16 9220857649) BUN (test code = 15 mg/dL 7-23 6918876859) GLUCOSE (test code = 133 mg/dL 70-110 H 9146924373) CREATININE (test code = 0.72 mg/dL 0.5-1.04 1353808097) CALCIUM (test code = 8.9 mg/dL 8.6-10.6 9424657511) eGFR Calculation mL/min/1.73m2 (Non-) (test code = 7775770181) eGFR Calculation mL/min/1.73m2 () (test code = 9966308599) MANE (test code = MANE) Association of [...] tests). Lab Interpretation Abnormal (test code = 68472-4) [facility] [place] [facility] CenterLipase [id number] 22:36:00 Test Item Value Reference Range Interpretation Comments LIPASE (test code = 5589249815) 92 U/L 0-220 Lab Interpretation (test code = Normal 11497-4) [facility] [place] [facility] with [id number] 22:25:00 Test Item Value Reference Range Interpretation Comments WBC (test code = See_Comment [Automated 0971-2) message] The sy stem which generated this result transmitted reference range : 4.30 - 11.10 10*3/?L. The reference range was not used to interpret this result as normal/abnormal . RBC (test code = See_Comment L [Automated 510-8) message] The sy stem which generated this [...] RDW-SD (test code = 41.8 fL 39-49.9 56534-8) RDW-CV (test code = 12.5 % 12-15.5 788-0) PLT (test code = See_Comment [Automated 777-3) message] The sy stem which generated this result transmitted reference range : 166 - 358 10*3/ ?L. The reference r georgina was not used to interpret this result as normal/abnormal . MPV (test code = 10.3 fL 9.5-12.9 83683-2) NRBC/100 WBC (test See_Comment [Automat ed code = 0325099671) message] The system which generated this result transmitted reference range : 0.0 - 10.0 /100 WBCs. The refer ence range was not u sed to interpret th is result as normal/abnormal . NRBC x10^3 (test code <0.01 See_Comment [Auto mated = 0185351276) message] The s ystem which generated this result transmitted reference range : 10*3/?L. The reference range was not used to interpret this result as normal/abnormal . GRAN MAT (NEUT) % 62.6 % (test code = 770-8) IMM GRAN % (test code 0.70 % = 2396785995) LYMPH % (test code = 28.6 % 736-9) MONO % (test code = 6.0 % 5905-5) EOS % (test code = 1.6 % 713-8) BASO % (test code = 0.5 % 706-2) GRAN MAT x10^3(ANC) 5.09 10*3/uL 1.88-7.09 (test code = 2777969822) IMM GRAN x10^3 (test 0.06 10*3/uL 0-0.06 code = 7419387853) LYMPH x10^3 (test code 2.33 10*3/uL 1.32-3.29 = 731-0) MONO x10^3 (test code 0.49 10*3/uL 0.33-0.92 = 742-7) EOS x10^3 (test code = 0.13 10*3/uL 0.03-0.39 711-2) BASO x10^3 (test code 0.04 10*3/uL 0.01-0.07 = 704-7) Lab Interpretation Abnormal (test code = 41567-9) [facility] [place] [facility] CenterPO[facility] [id number] 22:13:00 Test Item Value Reference Range Interpretation Comments POCT PREG (test code = 1605) neg On board controls acceptable with yes C Line (test code = 3574) POCT PREG LOT # (test code = 3575) [id number] POCT PREG TEST DATE (test 04/13/2022 code = 3576) Lab Interpretation (test code = Normal 39567-8) [facility]"
[2022-12-06] MEDS ORDERED: KETOROLAC 30 MG/ML INJ ONE (06:32)
[2022-12-06] MEDS ORDERED: NA CHLORIDE 0.9% 1,000 ML ONE (06:33)
[2022-12-06 06:53] LABS: Absolute Lymphocytes (CBC) 1.8 K/uL (0.7-4.9); Hematocrit 32.3 % (36.0-45.0); Lymphocytes % 35.9 % (15.3-44.8); MCV 91.6 fL (80-100); MPV 8.2 fL (7.6-11.3); RBC Red Blood Cell Count 3.53 M/uL (3.86-4.86)
--- NOTE | 2022-12-06 07:53 | RAD REPORT ---
[facility] CLINICAL HISTORY: MALAISE COMPARISON: Chest Single View dated 09/05/2022; Chest Single View dated 08/21/2022 TECHNIQUE: Portable AP view of the chest. FINDINGS: The lungs are clear. No pneumothorax or effusion. The cardiomediastinal contours are unre markable. IMPRESSION: No acute cardiopulmonary process.
[2022-12-06 07:56] LABS: ALT/SGPT 20 U/L (13-56); AST/SGOT 12 U/L (15-37); Albumin 3.3 g/dL (3.4-5.0); Alkaline Phosphatase 86 U/L (45-117); BUN Blood Urea Nitrogen 13 mg/dL (7-18); Bicarbonate 27 mEq/L (21-32); Bilirubin Total 0.1 mg/dL (0.2-1.0); Glomerular Filtration Rate 119 ml/min (=/>90); Glucose Level 88 mg/dL (74-106); Protein, Total 8.1 g/dL (6.4-8.2); Sodium Level 140 mEq/L (136-145)
[2022-12-06 08:01] LABS: C-Reactive Protein < 2.90 mg/L (<3.00)
[2022-12-06 08:02] LABS: SARS-CoV-2 Antigen Rapid Res Positive (Negative)
[2022-12-06 08:15] LABS: Specific Gravity 1.026 (1.005-1.030)
[2022-12-06 08:16] LABS: Specific Gravity 1.026 (1.005-1.030); Urine Bacteria <20 /HPF (<20); Urine Bilirubin NEGATIVE (Negative); Urine Blood 1+ (Negative); Urine Clarity Clear (Clear); Urine Color Light-Yellow (Yellow); Urine Glucose NEGATIVE (Negative); Urine Mucus Slight /HPF (None Seen); Urine Protein NEGATIVE (Negative); Urine RBC <5 /HPF (None Seen); Urine Urobilinogen Normal (Normal); Urine pH 6.5 (5.0-7.0)
--- NOTE | 2022-12-06 08:49 | EDPHYS ---
Physician Documentation [facility] Name: Savanna Flynn Age: 27 yrs Sex: Female : 1995 Arrival Date: 12/06/2022 Time: 06:00 Bed 19 Private MD: ED Physician Juanjo Summers HPI: 12/06 06:25 This 27 yrs old Female presents to ER via Ambulatory with complaints of sp3 chills, body aches. 06:25 27-year-old female with history of rheumatoid arthritis, Sjogren's presents to the ED sp3 with chief complaint body aches and chills that started yesterday evening and got worse this morning. 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 Patient denies full syncope, chest pain, shortness of breath, nausea, vomiting, diarrhea, rash, known sick contacts, travel history, prolonged immobilization, prior DVT or PE, current measured fever, or any other signs or symptoms on review of systems at this time. Patient states she had a mild headache yesterday which has gotten better.. 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 - Social history:: Smoking status: Patient denies any tobacco usage or history of. ROS: 06:27 Eyes: Negative for injury, pain, redness, and discharge, ENT: Negative for injury, sp3 pain, and discharge, Neck: Negative for injury, pain, and swelling, Cardiovascular: Negative for chest pain, palpitations, and edema, Respiratory: Negative for shortness of breath, cough, wheezing, and pleuritic chest pain, Abdomen/GI: Negative for abdominal pain, nausea, vomiting, diarrhea, and constipation, Back: Negative for injury and pain, MS/Extremity: Negative for injury and deformity, Skin: Negative for injury, rash, and discoloration, Psych: Negative for depression, anxiety, suicide ideation, homicidal ideation, and hallucinations, Allergy/Immunology: Negative for hives, rash, and allergies, Endocrine: Negative for neck swelling, polydipsia, polyuria, polyphagia, and marked weight changes. 06:27 All other systems are negative. Exam: 06:27 Constitutional: This is a well developed, well nourished patient who is awake, alert, sp3 and in no acute distress. Head/Face: Normocephalic, atraumatic. Eyes: Pupils equal round and reactive to light, extra-ocular motions intact. Lids and lashes normal. Conjunctiva and sclera are non-icteric and not injected. Cornea within normal limits. Periorbital areas with no swelling, redness, or edema. ENT: Nares patent. No nasal discharge, no septal abnormalities noted. External auditory canals are clear. Oropharynx with no redness, swelling, or masses, exudates, or evidence of obstruction, uvula midline. Mucous membranes moist. Neck: Trachea midline, no thyromegaly or masses palpated, and no cervical lymphadenopathy. Supple, full range of motion without nuchal rigidity, or vertebral point tenderness. No Meningismus. Chest/axilla: Normal chest wall appearance and motion. Nontender with no deformity. No lesions are appreciated. Cardiovascular: Regular rate and rhythm with a normal S1 and S2. No gallops, murmurs, or rubs. Normal PMI, no JVD. No pulse deficits. Respiratory: Lungs have equal breath sounds bilaterally, clear to auscultation and percussion. No rales, rhonchi or wheezes noted. No increased work of breathing, no retractions or nasal flaring. Abdomen/GI: Soft, non-tender, with normal bowel sounds. No distension or tympany. No guarding or rebound. No evidence of tenderness throughout. Back: No spinal tenderness. No costovertebral tenderness. Full range of motion. Skin: Warm, dry with normal turgor. Normal color with no rashes, no lesions, and no evidence of cellulitis. MS/ Extremity: Pulses equal, no cyanosis. Neurovascular intact. Full, normal range of motion. Neuro: Awake and alert, GCS 15, oriented to person, place, time, and situation. Cranial nerves II-XII grossly intact. Motor strength 5/5 in all extremities. Sensory grossly intact. Cerebellar exam normal. Normal gait. Psych: Awake, alert, with orientation to person, place and time. Behavior, mood, and affect are within normal limits. Vital Signs: 06:19 BP 110 / 67; Pulse 97; Resp 16; Temp 98.7(O); Pulse Ox 98% on R/A; Weight 58.97 kg; kd3 Height 5 ft. 2 in. ; 06:20 BP 110 / 71; Pulse 95; Resp 16 S; Pulse Ox 100% on R/A; ha1 07:31 BP 107 / 68; Pulse 81; Resp 17 S; Pulse Ox 96% on R/A; kc6 08:32 BP 113 / 79; Pulse 91; Resp 19 S; Pulse Ox 100% on R/A; kc6 06:19 Body Mass Index 23.78 (58.97 kg, 157.48 cm) kd3 MDM: 06:24 Patient medically screened. sp3 06:27 Data reviewed: vital signs, nurses notes, lab test result(s), radiologic studies. ED sp3 course: 27-year-old female with rheumatological history now presents with fever and chills without any other objective symptoms. Given her past medical history, we will work patient up with laboratory values, chest x-ray, urinalysis, flu, COVID, strep and IV ketorolac. If work-up is negative, patient can be safely discharged home with diagnosis of viral syndrome. 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 Patient will be signed out to daytime physician for final disposition and reassessment.. 08:48 Differential Diagnosis: Flu vs COVID vs Strep. I considered the following discharge ms3 prescriptions or medication management in the emergency department Medications were administered in the Emergency Department. See MAR. Independent interpretation of the following test(s) in the Emergency Department X-Ray: My interpretation is CXR images reviewed do not show PNA. Counseling: I had a detailed discussion with the patient and/or guardian regarding: the historical points, exam findings, and any diagnostic results supporting the discharge/admit diagnosis, lab results, radiology results, the need for outpatient follow up, to return to the emergency department if symptoms worsen or persist or if there are any questions or concerns that arise at home. Response to treatment: the patient's symptoms have markedly improved after treatment, and as a result, I will discharge patient. 12/06 06:20 Order name: CBC with Diff; Complete Time: :41 sp3 12/06 06:20 Order name: CMP; Complete Time: 08:33 sp3 12/06 06:20 Order name: CRP; Complete Time: 08:33 sp12/06 06:20 Order name: Flu; Complete Time: 08:33 sp12/06 06:20 Order name: SARS RAPID; Complete Time: 08:33 sp3 12/06 06:20 Order name: Strep sp3 12/06 06:25 Order name: UAM; Complete Time: 08:33 sp12/06 06:25 Order name: Test, Urine; Complete Time: 08:33 sp3 12/06 08:03 Order name: Throat Culture EDMS 12/06 06:25 Order name: CXR XRAY; Complete Time: 07:56 12/06 06:20 Order name: IV Saline Lock; Complete Time: 06:42 12/06 06:20 Order name: Labs collected and sent; Complete Time: 06:42 12/06 06:58 Order name: Misc. Order: recollect green top only; Complete Time: 07:27 rv1 Administered Medications: 06:45 Drug: NS 0.9% IV 1000 ml Route: IV; Rate: 1000 ml; Site: right hand; ha1 08:37 Follow up: Response: No adverse reaction; IV Status: Completed infusion; IV Intake: kc6 1000ml 06:45 Drug: Ketorolac IVP 15 mg Route: IVP; Site: right hand; ha1 08:37 Follow up: Response: No adverse reaction; Pain is decreased kc6 Disposition Summary: 12/06/22 08:48 Discharge Ordered Location: Home ms3 Condition: Stable ms3 Diagnosis - SARS-associated coronavirus as the cause of diseases classified elsewhere ms3 - Muscle weakness (generalized) ms3 - Myalgia ms3 Followup: ms3 - With: Francisco Bess, DO - When: 2 - 3 days - Reason: Recheck today's complaints Discharge Instructions: - Discharge Summary Sheet ms3 - COVID-19 ms3 - How to Protect Yourself and Others - [facility] (09/08/2021) ms3 - Viral Illness, Adult ms3 Forms: - Medication Reconciliation Form ms3 - Thank You Letter ms3 - Antibiotic Education ms3 - Prescription Opioid Use ms3 - Work release form kc6 Signatures: Dispatcher [employer] EDJuanjo Loera DO DO ms3 Tatiana Bess MD MD sp3 Valorie Grewal RN RN kd3 Zoe Guan RN RN ha1 Osvaldo, Mirta 1 Mariely Stern RN kc6
--- NOTE | 2022-12-06 08:49 | ER ---
Nurse's Notes [facility] Name: Savanna Flynn Age: 27 yrs Sex: Female : 1995 Arrival Date: 12/06/2022 Time: 06:00 Bed 19 Private MD: Diagnosis: SARS-associated coronavirus as the cause of diseases classified elsewhere;Muscle weakness (generalized);Myalgia Presentation: 12/06 06:19 Chief complaint: Patient states: This morning i woke up and felt like i had some chills kd3 along with a heavy feeling in my body but it was too late to call into work so i went to work and i think i passed out. 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 Since i wasn't feeling well, i left work and came here. I wasn't feeling sick prior to coming here. I have a history of rheumatoid arthritis and i recently got off of my medications and started infusions. So far i have had 2 that started 2 months ago. Coronavirus screen: Vaccine status: Patient reports being unvaccinated. Ebola Screen: No symptoms or risks identified at this time. Initial Sepsis Screen: Does the patient meet any 2 criteria? No. Patient's initial sepsis screen is negative. Does the patient have a suspected source of infection? No. Patient's initial sepsis screen is negative. Risk Assessment: Do you want to hurt yourself or someone else? Patient reports no desire to harm self or others. Onset of symptoms was December 06, 2022. 06:19 Method Of Arrival: Ambulatory kd3 06:19 Acuity: SUBHASH 3 kd3 Triage Assessment: 06:22 General: Appears uncomfortable, Behavior is calm, cooperative. Pain: Denies pain. 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 - Social history:: Smoking status: Patient denies any tobacco usage or history of. Screenin:04 Abuse screen: Denies threats or abuse. Denies injuries from another. Nutritional ha1 screening: No deficits noted. Tuberculosis screening: No symptoms or risk factors identified. Assessment: 06:10 General: Appears comfortable, Behavior is calm, cooperative. Pain: Complains of pain in ha1 generalized body aches. Pain currently is 7 out of 10 on a pain scale. Neuro: Level of Consciousness is awake, alert, obeys commands, Oriented to person, place, time, situation. Cardiovascular: Capillary refill < 3 seconds Patient's skin is warm and dry. Respiratory: Airway is patent Respiratory effort is even, unlabored, Respiratory pattern is regular, symmetrical. GI: No signs and/or symptoms were reported involving the gastrointestinal system. Musculoskeletal: Circulation, motion, and sensation intact. Range of motion: intact in all extremities. 07:00 Reassessment: Patient appears in no apparent distress at this time. No changes from [facility] previously documented assessment. Patient and/or family updated on plan of care and expected duration. Pain level reassessed. Patient is alert, oriented x 3, equal unlabored respirations, skin warm/dry/pink. 08:00 Reassessment: Patient appears in no apparent distress at this time. No changes from [facility] previously documented assessment. Patient and/or family updated on plan of care and expected duration. Pain level reassessed. Patient is alert, oriented x 3, equal unlabored respirations, skin warm/dry/pink. Vital Signs: 06:19 BP 110 / 67; Pulse 97; Resp 16; Temp 98.7(O); Pulse Ox 98% on R/A; Weight 58.97 kg; kd3 Height 5 ft. 2 in. ; 06:20 BP 110 / 71; Pulse 95; Resp 16 S; Pulse Ox 100% on R/A; ha1 07:31 BP 107 / 68; Pulse 81; Resp 17 S; Pulse Ox 96% on R/A; kc6 08:32 BP 113 / 79; Pulse 91; Resp 19 S; Pulse Ox 100% on R/A; kc6 06:19 Body Mass Index 23.78 (58.97 kg, 157.48 cm) kd3 ED Course: 06:05 Patient arrived in ED. ag3 06:09 Patient has correct armband on for positive identification. Placed in gown. Bed in low ha1 position. Call light in reach. Side rails up X 1. 06:19 Zoe Guan RN is Primary Nurse. ha1 06:20 Inserted saline lock: 22 gauge in right hand, using aseptic technique. Blood collected. ha1 06:22 Triage completed. kd3 06:22 Arm band placed on right wrist. kd3 06:24 Tatiana Bess MD is Attending Physician. sp3 06:50 CXR XRAY In Process Unspecified. EDMS 07:00 Attending Physician role handed off by Tatiana Bess MD ms3 07:00 Juanjo Summers DO is Attending Physician. ms3 07:00 Report received from Zoe Guan RN. kc6 07:27 Inserted saline lock: 20 gauge in left antecubital area, using aseptic technique. Blood kc6 collected. 08:47 Francisco Bess DO is Referral Physician. ms3 08:59 No provider procedures requiring assistance completed. IV discontinued, intact, kc6 bleeding controlled, No redness/swelling at site. Pressure dressing applied. Administered Medications: 06:45 Drug: NS 0.9% IV 1000 ml Route: IV; Rate: 1000 ml; Site: right hand; ha1 08:37 Follow up: Response: No adverse reaction; IV Status: Completed infusion; IV Intake: kc6 1000ml 06:45 Drug: Ketorolac IVP 15 mg Route: IVP; Site: right hand; ha1 08:37 Follow up: Response: No adverse reaction; Pain is decreased kc6 Medication: 08:59 VIS not applicable for this client. kc6 Intake: 08:37 IV: 1000ml; Total: 1000ml. kc6 Outcome: 08:48 Discharge ordered by . ms3 08:59 Discharged to home ambulatory. kc6 08:59 Condition: stable 08:59 Discharge instructions given to patient, Instructed on discharge instructions, follow up and referral plans. Demonstrated understanding of instructions, follow-up care. 08:59 Patient left the ED. kc6 Signatures: Dispatcher [employer] ED[facility] Batsheva Schaefer 3 Juanjo Summers DO DO ms3 Tatiana Bess MD MD sp3 Valorie Grewal RN RN kd3 Zoe Guan RN RN Mariely Gramajo RN RN kc6
[2022-12-06 09:29] VITALS: TEMP 98.7
[2022-12-06 09:33] VITALS: BP 113/79; O2SAT 100
== END 2022-12-06 08:59 | disposition home or self-care (01) ==
LOC: ER 06:00
DX: U07.1 COVID-19 (principal); M62.81 Muscle weakness (generalized); M35.00 Sjogren syndrome, unspecified
CPT/HCPCS: 96361; 87070; 85025; 81001; 36415; 81025; 87081; 80053; 86140; 87804 ×2; 71045; 96374; 99284; 87811; J7030

== ENCOUNTER → 2023-09-10 | Emergency (ER) | payer SELFPAY ==
[~2023-09-10] MED LIST: METHYLPREDNISOLONE 125 MG INJ ONE
--- OUTSIDE RECORDS SUMMARY | 2023-09-10 18:15 | XMS REPORT | Continuity of Care Document ---
Author Name Unknown Address [address] [place] [address] [facility] thconnect Address [address] [place] [address] Care Team Providers Care Hoop Riveter Name Role Phone Otf Plata Attending Clinician [phone] OTF LUCERO Attending Clinician Unavailable Payers Payer Name Policy Type Policy Number Effective Date Expirati on Date Source Problems Condition Name Condition Details Condition Category Status Onset Date Resolution Date Last Treatment Date Treating Clinician Comments Source No known active problems No known active problems Disease [facility] Allergies, Adverse Reactions, Alerts Allergy Name Allergy Type Status Severity Reaction(s) Onset Date Inactive Date Treating Clinician Comments Source NO KNOWN ALLERGIE S Drug Class Active [facility] Social History Social Habit Start Date Stop Date Quantity Comments Source Sex Assigned At [facility] Exposure to SARS-CoV-2 (event) Not sure [facility] Smoking Status Start Date Stop Date Source Unknown if ever smoked [facility] Medications Ordered Medication Name Filled Medication Name Start Date Stop Date Current Medication? Ordering Clinician Indication Dosage Frequency Signature (SIG) Comments Components Source ketorolac (TORADOL) injection 15 mg 09-09 00:45: 00 09-08 23:47 :00 No 15mg 15 mg, Slow IV Push, ONCE, 1 dose, Sandi 09/08/20 at 1845, RACHEL
Fa culty member approving Restricted medication : ADEEL BAKER [facility] ondansetron (ZOFRAN (PF)) injection 4 mg 09-08 23:15: 00 09-08 22:24 :00 No 4mg 4 mg, Slow IV Push, ONCE, 1 dose, Sandi 09/08/20 at 1715, RACHEL [facility] morpHINE injection 4 mg 09-08 23:15: 00 09-08 22:24 :00 No 4mg 4 mg, Slow IV Push, ONCE, 1 dose, Sandi 09/08/20 at 1715, STAT [facility] maalox:diph enhydrAMINE :lidocaine 2 % viscous 1:1:1 ([facility]) oral suspension 15 mL 09-08 22:30: 00 09-08 22:30 :00 No 15mL 15 mL, Oral, ONCE, 1 dose, Sandi 09/08/20 at 1630, RACHEL [facility] NaCl 0.9% (NS) bolus infusion 1,000 mL 09-08 22:15: 00 09-09 00:50 :00 No 1000mL at 999 mL/hr, 1,000 mL, IV Infusion, ONCE, 1 dose, Sandi 09/08/20 at 1615, RACHEL [facility] ondansetron 4 mg disintegrat ing tablet 09-08 00:00: 00 Yes [id number] 4mg Take 1 tablet by mouth every 8 (eight) hours as needed for Nausea and Vomiting (N/V). [facility] ibuprofen 600 mg tablet 09-08 00:00: 00 Yes [id number] 600mg Take 1 tablet by mouth every 8 (eight) hours as needed for Pain (scale 4-6). [facility] Nitrofurant oin&Nit. Macrocryst (MACROBID) 100 mg capsule 09-08 00:00: 00 09-14 05:59 :00 No [id number] 100mg Take 1 capsule by mouth 2 (two) times daily for 5 days. [facility] Vital Signs Vital Name Observation Time Observation Value Comments Toribio nathaliatiago Systolic blood pressure 2020-09-08 23:45:00 112 mm[Hg] [facility] Diastolic blood pressure 2020-09-08 23:45:00 77 mm[Hg] [facility] Heart rate 2020-09-08 23:45:00 83 /min [facility] Respiratory rate 2020-09-08 23:45:00 18 /min [facility] Oxygen saturation in Arterial blood by Pulse oximetry 2020-09-08 23:45:00 100 /min [place] [facility] Body temperature 2020-09-08 21:56:00 36.61 Shira [facility] Body weight 2020-09-08 21:56:00 62.143 kg [facility] Procedures Procedure Date / Time Performed Performing Clinicia n Source URINALYSIS 2020-09-09 00:27:00 Otf Lucero [facility] US GALL BLADDER 2020-09-08 23:30:50 [facility] 2020-09-08 22:13:00 Otf Lucero [facility] HEPATIC FUNCTION PANEL (86152) (ALB,T.PRO,BILI T,BU/BC,ALT,AST,ALK PHOS) 2020-09-08 22:13:00 Otf Lucero [facility] BASIC METABOLIC PANEL (NA, K, CL, CO2, GLUCOSE, BUN, CREATININE, CA) 2020-09-08 22:13:00 Otf Lucero [facility] CBC WITH DIFF 2020-09-08 22:13:00 Otf Lucero Uni [facility] POCT TEST 2020-09-08 22:13:00 Otf Lucero [facility] NOTICE OF PRIVACY PRACTICES 2020-09-08 21:50:49 Doctor Unassigned, Marty [facility] CONSENT/REFUSAL FOR DIAGNOSIS AND TREATMENT 2020-09-08 21:50:40 Doctor Unassigned, Marty [facility] Encounters Start Date/Time End Date/Time Encounter Type Admission Type Attending Clinicians Care Facility Care Department Encounter ID Source 2020-09-08 16:00:00 2020-09-08 19:27:00 Emergency Otf Lucero [facility] [id number] [facility] 2020-09-08 16:00:00 2020-09-08 16:00:00 Emergency X OTF LUCERO [facility] ERT [id number] [facility] Results Test Description Test Time Test Comments Results Result Co mments Source [facility] (ALB, T.PRO, BILI T, BU/BC, ALT, AST, ALK PHOS)2020-09-08 22:38:00* Test Item Value Reference Range Interpretation Comme nts TOTAL BILI (test code = 8098177898) 0.5 mg/dL 0.1-1.1 BILI UNCON (test code = 9136606954) 0.4 mg/dL 0.1-1.1 BILI CONJ (test code = 7635064546) 0.0 mg/dL 0-0.3 T PROTEIN (test code = 8775133413) 9.5 g/dL 6.3-8.2 H ALBUMIN (test code = 3287328238) 4.8 g/dL 3.5-5 ALK PHOS (test code = 0462088702) 90 U/L 34-122 ALTv (test code = 1742-6) 10 U/L 5-35 AST(SGOT) (test code = 9132203590) 23 U/L 13-40 Lab Interpretation (test cod e = 93657-3) [facility]normal [facility] (NA, K, CL, CO2, GLUCOSE, BUN, CREATININE, CA)2020-09-08 22:36:00* Test Item Value Reference Range Interpretation Comme nts NA (test code = 5727916668) 139 mmol/L 135-145 K (test code = 7587511148) 3.5 mmol/L 3.5-5 CL (test code = 6594168775) 103 mmol/L 98-108 CO2 TOTAL (test code = 5172201414) 25 mmol/L 23-31 AGAP (test code = 6562343134) 2-16 BUN (test code = 4453134653) 15 mg/dL 7-23 GLUCOSE (test code = 8194227610) 133 mg/dL 70-110 H CREATININE (test code = 9646279042) 0.72 mg/dL 0.5-1.04 CALCIUM (test code = 8401024105) 8.9 mg/dL 8.6-10.6 eGFR Calculation (Non-) (test code = 2767717655) mL/min/1.73m2 eGFR Calculation () (test code = 5952761971) mL/min/1.73m2 MANE (test code = MANE) Association of [...] or abnormalities in imaging tests). Lab Interpretation (test code = 96475-8) [facility]normal [facility] Center[facility] [id number] 22:36:00* Test Item Value Reference Range Interpretation Comme nts LIPASE (test code = 3588045310) 92 U/L 0-220 Lab Interpretation (test cod e = 44831-7) Normal [facility] with [id number] 22:25:00* Test Item Value Reference Range Interpretation Comme nts WBC (test code = 6690-2) See_Comment [Automated messa ge] The system which generated this result transmitted reference range: 4.30 - 11.10 10*3/?L. The reference range was not used to interpret this result as normal/abnormal. RBC (test code = 789-8) See_Comment L [Automated messa ge] The system which generated this result transmitted reference range: 3.93 - 5.25 10*6/?L. The reference range was not used to interpret this result as normal/abnormal. HGB (test code = 718-7) 11.3 g/dL 11.6-15 L HCT (test code = 4544-3) 34.2 % 35.7-45.2 L MCV (test code = 787-2) 91.7 fL 80.6-95.5 MCH (test code = 785-6) 30.3 pg 25.9-32.8 MCHC (test code = 786-4) 33.0 g/dL 31.6-35.1 RDW-SD (test code = 44631-3) 41.8 fL 39-49.9 RDW-CV (test code = 788-0) 12.5 % 12-15.5 PLT (test code = 777-3) See_Comment [Automated messa ge] The system which generated this result transmitted reference range: 166 - 358 10*3/?L. The reference range was not used to interpret this result as normal/abnormal. MPV (test code = 87019-9) 10.3 fL 9.5-12.9 NRBC/100 WBC (test code = 2654787643) See_Comment [Automated me ssage] The system which generated this result transmitted reference range: 0.0 - 10.0 /100 WBCs. The reference range was not used to interpret this result as normal/abnormal. NRBC x10^3 (test code = 1004853574) <0.01 See_Comment [Automated messa ge] The system which generated this result transmitted reference range: 10*3/?L. The reference range was not used to interpret this result as normal/abnormal. GRAN MAT (NEUT) % (test code = 770-8) 62.6 % IMM GRAN % (test code = 5872453655) 0.70 % LYMPH % (test code = 736-9) 28.6 % MONO % (test code = 5905-5) 6.0 % EOS % (test code = 713-8) 1.6 % BASO % (test code = 706-2) 0.5 % GRAN MAT x10^3(ANC) (test code = 1768307231) 5.09 10*3/uL 1.88-7.09 IMM GRAN x10^3 (test code = 1655066790) 0.06 10*3/uL 0-0.06 LYMPH x10^3 (test code = 731-0) 2.33 10*3/uL 1.32-3.29 MONO x10^3 (test code = 742-7) 0.49 10*3/uL 0.33-0.92 EOS x10^3 (test code = 711-2) 0.13 10*3/uL 0.03-0.39 BASO x10^3 (test code = 704-7) 0.04 10*3/uL 0.01-0.07 Lab Interpretation (test code = 93974-2) [facility]normal [facility] [id number] 22:13:00* Test Item Value Reference Range Interpretation Comme nts POCT PREG (test code = 1605) neg On board controls acceptable with C Line (test code = 3574) yes POCT PREG LOT # (test code = 3575) [id number] POCT PREG TEST DATE ( test code = 3576) 04/13/2022 Lab Interpretation (test cod e = 79529-9) Normal [facility]"
--- NOTE | 2023-09-10 18:28 | ER ---
Nurse's Notes [facility] Name: Savanna Flynn Age: 28 yrs Sex: Female : 1995 Arrival Date: 09/10/2023 Time: 18:10 Bed IW4 Private MD: Diagnosis: Rheumatoid arthritis, unspecified Presentation: 09/10 18:19 Chief complaint: Patient states: "I'm having a flare up and I've just been really tired as6 and I can feel my health doing down". Coronavirus screen: At this time, the client does not indicate any symptoms associated with coronavirus-19. Ebola Screen: No symptoms or risks identified at this time. Initial Sepsis Screen: Does the patient meet any 2 criteria? No. Patient's initial sepsis screen is negative. Does the patient have a suspected source of infection? No. Patient's initial sepsis screen is negative. Risk Assessment: Do you want to hurt yourself or someone else? Patient reports no desire to harm self or others. Onset of symptoms was September 05, 2023. 18:19 Method Of Arrival: Ambulatory as6 18:19 Acuity: SUBHASH 4 as6 Triage Assessment: 18:21 General: Appears in no apparent distress. Behavior is calm, cooperative. Pain: as6 Complains of pain in generalized. 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 - Social history:: Smoking status: Patient denies any tobacco usage or history of. Screenin:28 [facility] ED Fall Risk Assessment (Adult) Score/Fall Risk Level 0 - 2 = Low Risk. Abuse as6 screen: Denies threats or abuse. Denies injuries from another. Nutritional screening: No deficits noted. Tuberculosis screening: No symptoms or risk factors identified. Vital Signs: 18:19 BP 116 / 75; Pulse 92; Resp 16 S; Temp 98.6; Pulse Ox 98% on R/A; Weight 65.77 kg (R); as6 Height 5 ft. 2 in. (R); Pain 7/10; 18:19 Body Mass Index 26.52 (65.77 kg, 157.48 cm) as6 18:19 Pain Scale: Adult as6 ED Course: 18:16 Patient arrived in ED. rg4 18:16 Tatiana Bess MD is Attending Physician. sp3 18:21 Triage completed. as6 18:21 Arm band placed on. as6 18:28 Bed in low position. Call light in reach. Provided Education on: follow up. as6 18:28 No provider procedures requiring assistance completed. Patient did not have IV access as6 during this emergency room visit. Administered Medications: 18:28 Drug: MethylPREDNISolone Sodium Succinate IM 125 mg IM once Route: IM; Site: left as6 ventrogluteal; 18:29 Follow up: Response: No adverse reaction as6 Medication: 18:29 VIS not applicable for this client. as6 Outcome: 18:28 Discharge ordered by . sp3 18:28 Discharged to home ambulatory, as6 18:28 Condition: stable 18:31 Discharge instructions given to patient, Instructed on discharge instructions, follow as6 up and referral plans. medication usage, Demonstrated understanding of instructions, follow-up care, medications, Prescriptions given X 2, 18:31 Patient left the ED. as6 Signatures: Linda Coats rg4 Tatiana Bess MD MD sp3 Hunter Willson, RN RN as6
--- NOTE | 2023-09-10 18:28 | EDPHYS ---
Physician Documentation [facility] Name: Savanna Flynn Age: 28 yrs Sex: Female : 1995 Arrival Date: 09/10/2023 Time: 18:10 Bed IW4 Private MD: ED Physician Tatiana Bess HPI: 09/10 18:26 This 28 yrs old Female presents to ER via Ambulatory with complaints of RA sp3 FLARE UP. 18:26 28-year-old female with history of rheumatoid arthritis, Sjogren's, fibromyalgia sp3 presents to the ED with chief complaint body aches and "rheumatoid arthritis flareup". 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 Normally steroids help her in the situations. She denies any fever, headache, chest pain, shortness of breath, bleeding, or any other signs or symptoms on ROS at this time.. 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 - Social history:: Smoking status: Patient denies any tobacco usage or history of. ROS: 18:26 Constitutional: Negative for fever, chills, and weight loss, Eyes: Negative for injury, sp3 pain, redness, and discharge, ENT: Negative for injury, pain, and discharge, Neck: Negative for injury, pain, and swelling, Cardiovascular: Negative for chest pain, palpitations, and edema, Respiratory: Negative for shortness of breath, cough, wheezing, and pleuritic chest pain, Abdomen/GI: Negative for abdominal pain, nausea, vomiting, diarrhea, and constipation, Back: Negative for injury and pain, Skin: Negative for injury, rash, and discoloration, Neuro: Negative for headache, weakness, numbness, tingling, and seizure, Psych: Negative for depression, anxiety, suicide ideation, homicidal ideation, and hallucinations, Endocrine: Negative for neck swelling, polydipsia, polyuria, polyphagia, and marked weight changes, Hematologic/Lymphatic: Negative for swollen nodes, abnormal bleeding, and unusual bruising, 18:26 All other systems are negative, Exam: 18:27 Constitutional: This is a well developed, well nourished patient who is awake, alert, sp3 and in no acute distress. Head/Face: Normocephalic, atraumatic. Eyes: Pupils equal round and reactive to light, extra-ocular motions intact. Lids and lashes normal. Conjunctiva and sclera are non-icteric and not injected. Cornea within normal limits. Periorbital areas with no swelling, redness, or edema. ENT: Nares patent. No nasal discharge, no septal abnormalities noted. External auditory canals are clear. Oropharynx with no redness, swelling, or masses, exudates, or evidence of obstruction, uvula midline. Mucous membranes moist. Neck: Trachea midline, no thyromegaly or masses palpated, and no cervical lymphadenopathy. Supple, full range of motion without nuchal rigidity, or vertebral point tenderness. No Meningismus. Chest/axilla: Normal chest wall appearance and motion. Nontender with no deformity. No lesions are appreciated. Cardiovascular: Regular rate and rhythm with a normal S1 and S2. No gallops, murmurs, or rubs. Normal PMI, no JVD. No pulse deficits. Respiratory: Lungs have equal breath sounds bilaterally, clear to auscultation and percussion. No rales, rhonchi or wheezes noted. No increased work of breathing, no retractions or nasal flaring. Abdomen/GI: Soft, non-tender, with normal bowel sounds. No distension or tympany. No guarding or rebound. No evidence of tenderness throughout. Back: No spinal tenderness. No costovertebral tenderness. Full range of motion. Skin: Warm, dry with normal turgor. Normal color with no rashes, no lesions, and no evidence of cellulitis. Neuro: Awake and alert, GCS 15, oriented to person, place, time, and situation. Cranial nerves II-XII grossly intact. Motor strength 5/5 in all extremities. Sensory grossly intact. Cerebellar exam normal. Normal gait. Psych: Awake, alert, with orientation to person, place and time. Behavior, mood, and affect are within normal limits. 18:27 Musculoskeletal/extremity: Mild joint stiffness noted diffusely. Vital signs normal and patient is in no acute distress. Afebrile.. Vital Signs: 18:19 BP 116 / 75; Pulse 92; Resp 16 S; Temp 98.6; Pulse Ox 98% on R/A; Weight 65.77 kg (R); as6 Height 5 ft. 2 in. (R); Pain 7/10; 18:19 Body Mass Index 26.52 (65.77 kg, 157.48 cm) as6 18:19 Pain Scale: Adult as6 MDM: 18:22 Patient medically screened. sp3 18:27 Data reviewed: vital signs, nurses notes. ED course: 20-year-old female with probable sp3 rheumatoid arthritis flareup. 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 Patient is in no acute distress and I am not highly suspicious for any other process including acute thyroid pathology, ACS, sepsis, shock, or any other critical process. Patient is okay with the plan and is grateful for her care.. Administered Medications: 18:28 Drug: MethylPREDNISolone Sodium Succinate IM 125 mg IM once Route: IM; Site: left as6 ventrogluteal; 18:29 Follow up: Response: No adverse reaction as6 Disposition Summary: 09/10/23 18:28 Discharge Ordered Notes: Location: Home sp3 Condition: Stable sp3 Diagnosis - Rheumatoid arthritis, unspecified sp3 Followup: sp3 - With: Private Physician - When: Upon discharge from the Emergency Department - Reason: Continuance of care Discharge Instructions: - Discharge Summary Sheet sp3 - Rheumatoid Arthritis sp3 Forms: - Medication Reconciliation Form sp3 - Thank You Letter sp3 - Antibiotic Education sp3 - Prescription Opioid Use sp3 - Patient Portal Instructions sp3 - Leadership Thank You Letter sp3 Prescriptions: - Diclofenac Sodium 75 mg Oral Tablet Sustained Release - take 1 tablet ORAL route 2 times per day; 30 tablet; Refills: 0, Product sp3 Selection Permitted - Prednisone 20 mg Oral Tablet - take 2 tablets ORAL route once daily for 5 days; 10 tablet; Refills: 0, Product sp3 Selection Permitted Signatures: Tatiana Bess MD MD sp3 Hunter Willson, RN RN as6
[2023-09-10 18:43] VITALS: BP 116/75; TEMP 98.6; O2SAT 98
== END ==
LOC: ER 18:10
DX: M06.9 Rheumatoid arthritis, unspecified (principal)
CPT/HCPCS: J2930

== ENCOUNTER → 2023-10-03 | Emergency (ER) | payer SELFPAY ==
[~2023-10-03] MED LIST changes: +HYDROCORTISONE SUC 100 MG INJ ONE; +KETOROLAC 30 MG/ML INJ ONE; -METHYLPREDNISOLONE 125 MG INJ ONE; +METOCLOPRAMIDE 10 MG/2mL INJ ONE; +NA CHLORIDE 0.9% 50 ML ONE; +TRAMADOL HCL 50 MG TAB ONE
--- OUTSIDE RECORDS SUMMARY | 2023-10-03 21:48 | XMS REPORT | Continuity of Care Document ---
Author Name Unknown Address [address] [place] [address] [address] thconnect Address [address] [facility]. [address] [place] [address] Care Team Providers Care Rolled Gold Plater Name Role Phone Otf Plata Attending Clinician [phone] OTF LUCERO Attending Clinician Unavailable Payers Payer Name Policy Type Policy Number Effective Date Expirati on Date Source Problems Condition Name Condition Details Condition Category Status Onset Date Resolution Date Last Treatment Date Treating Clinician Comments Source No known active problems No known active problems Disease [facility] Allergies, Adverse Reactions, Alerts Allergy Name Allergy Type Status Severity Reaction(s) Onset Date Inactive Date Treating Clinician Comments Source NO KNOWN ALLERGIE S Drug Class Active [facility] Social History Social Habit Start Date Stop Date Quantity Comments Source Sex Assigned At [facility] Exposure to SARS-CoV-2 (event) Not sure [facility] Smoking Status Start Date Stop Date Source Unknown if ever smoked [facility] Medications Ordered Medication Name Filled Medication Name Start Date Stop Date Current Medication? Ordering Clinician Indication Dosage Frequency Signature (SIG) Comments Components Source ketorolac (TORADOL) injection 15 mg 09-09 00:45: 00 09-08 23:47 :00 No 15mg 15 mg, Slow IV Push, ONCE, 1 dose, Sandi 09/08/20 at 1845, RACHEL
Fa randolph healthy member approving Restricted medication : ADEEL BAKER [facility] ondansetron (ZOFRAN (PF)) injection 4 mg 09-08 23:15: 00 09-08 22:24 :00 No 4mg 4 mg, Slow IV Push, ONCE, 1 dose, Sandi 09/08/20 at 1715, [facility] morpHINE injection 4 mg 09-08 23:15: 00 09-08 22:24 :00 No 4mg 4 mg, Slow IV Push, ONCE, 1 dose, Sandi 09/08/20 at 1715, STAT [facility] maalox:diph enhydrAMINE :lidocaine 2 % viscous 1:1:1 (FIRST-MOUT HWASH BLM) oral suspension 15 mL 09-08 22:30: 00 09-08 22:30 :00 No 15mL 15 mL, Oral, ONCE, 1 dose, Sandi 09/08/20 at 1630, [facility] NaCl 0.9% (NS) bolus infusion 1,000 mL 09-08 22:15: 00 09-09 00:50 :00 No 1000mL at 999 mL/hr, 1,000 mL, IV Infusion, ONCE, 1 dose, Sandi 09/08/20 at 1615, [facility] ondansetron 4 mg disintegrat ing tablet 09-08 00:00: 00 Yes [id number] 4mg Take 1 tablet by mouth every 8 (eight) hours as needed for Nausea and Vomiting (N/V). [facility] ibuprofen 600 mg tablet 09-08 00:00: 00 Yes [id number] 600mg Take 1 tablet by mouth every 8 (eight) hours as needed for Pain (scale 4-6). [facility] Nitrofurant oin&Nit. Macrocryst (MACROBID) 100 mg capsule 09-08 00:00: 00 09-14 05:59 :00 No [id number] 100mg Take 1 capsule by mouth 2 (two) times daily for 5 days. [facility] Vital Signs Vital Name Observation Time Observation Value Comments S ource Systolic blood pressure 2020-09-08 23:45:00 112 mm[Hg] [facility] Diastolic blood pressure 2020-09-08 23:45:00 77 mm[Hg] [facility] Heart rate 2020-09-08 23:45:00 83 /min [facility] Respiratory rate 2020-09-08 23:45:00 18 /min [facility] Oxygen saturation in Arterial blood by Pulse oximetry 2020-09-08 23:45:00 100 /min [place] [facility] Body temperature 2020-09-08 21:56:00 36.61 Shira [facility] Body weight 2020-09-08 21:56:00 62.143 kg [facility] Procedures Procedure Date / Time Performed Performing Clinicia n Source URINALYSIS 2020-09-09 00:27:00 Otf Lucero [facility] US GALL BLADDER 2020-09-08 23:30:50 [facility] 2020-09-08 22:13:00 Otf Lucero [facility] HEPATIC FUNCTION PANEL (67851) (ALB,T.PRO,BILI T,BU/BC,ALT,AST,ALK PHOS) 2020-09-08 22:13:00 Otf Lucero [facility] BASIC METABOLIC PANEL (NA, K, CL, CO2, GLUCOSE, BUN, CREATININE, CA) 2020-09-08 22:13:00 Otf Lucero [facility] CBC WITH DIFF 2020-09-08 22:13:00 Otf Lucero [facility] POCT TEST 2020-09-08 22:13:00 Otf Lucero [facility] NOTICE OF PRIVACY PRACTICES 2020-09-08 21:50:49 Doctor Unassigned, [place] [facility] CONSENT/REFUSAL FOR DIAGNOSIS AND TREATMENT 2020-09-08 21:50:40 Doctor Unassigned, [place] [facility] Encounters Start Date/Time End Date/Time Encounter Type Admission Type Attending Clinicians Care Facility Care Department Encounter ID Source 2020-09-08 16:00:00 2020-09-08 19:27:00 Emergency Otf Lucero [facility] [id number] [facility] 2020-09-08 16:00:00 2020-09-08 16:00:00 Emergency X OTF LUCERO [facility] ERT [id number] [facility] Results Test Description Test Time Test Comments Results Result Co mments Source [facility] (ALB, T.PRO, BILI T, BU/BC, ALT, AST, ALK PHOS)2020-09-08 22:38:00* Test Item Value Reference Range Interpretation Comme nts TOTAL BILI (test code = 3771195892) 0.5 mg/dL 0.1-1.1 BILI UNCON (test code = 9767290926) 0.4 mg/dL 0.1-1.1 BILI CONJ (test code = 5531753348) 0.0 mg/dL 0-0.3 T PROTEIN (test code = 9344163310) 9.5 g/dL 6.3-8.2 H ALBUMIN (test code = 1527945710) 4.8 g/dL 3.5-5 ALK PHOS (test code = 9173694245) 90 U/L 34-122 ALTv (test code = 1742-6) 10 U/L 5-35 AST(SGOT) (test code = 9873815000) 23 U/L 13-40 Lab Interpretation (test cod e = 00880-5) Abnormal [facility] (NA, K, CL, CO2, GLUCOSE, BUN, CREATININE, CA)2020-09-08 22:36:00* Test Item Value Reference Range Interpretation Comme nts NA (test code = 0302151285) 139 mmol/L 135-145 K (test code = 9475210333) 3.5 mmol/L 3.5-5 CL (test code = 7872557833) 103 mmol/L 98-108 CO2 TOTAL (test code = 7641493382) 25 mmol/L 23-31 AGAP (test code = 8435240293) 2-16 BUN (test code = 2173165438) 15 mg/dL 7-23 GLUCOSE (test code = 5431560552) 133 mg/dL 70-110 H CREATININE (test code = 5538022824) 0.72 mg/dL 0.5-1.04 CALCIUM (test code = 9486584457) 8.9 mg/dL 8.6-10.6 eGFR Calculation (Non-) (test code = 1740007784) mL/min/1.73m2 eGFR Calculation () (test code = 0966247267) mL/min/1.73m2 MANE (test code = MANE) Association [...] imaging tests). Lab Interpretation (test code = 00709-8) Abnormal [facility] [id number] 22:36:00* Test Item Value Reference Range Interpretation Comme nts LIPASE (test code = 4398662068) 92 U/L 0-220 Lab Interpretation (test cod e = 67649-1) Normal [facility] with [id number] 22:25:00* Test Item Value Reference Range Interpretation [...] 33.0 g/dL 31.6-35.1 RDW-SD (test code = 45803-5) 41.8 fL 39-49.9 RDW-CV (test code = 788-0) 12.5 % 12-15.5 PLT (test code = 777-3) See_Comment [Automated [employer] ge] The system which generated this result transmitted reference range: 166 - 358 10*3/?L. The reference range was not used to interpret this result as normal/abnormal. MPV (test code = 33662-4) 10.3 fL 9.5-12.9 NRBC/100 WBC (test code = 9701975549) See_Comment [Automated [employer] ssage] The system which generated this result transmitted reference range: 0.0 - 10.0 /100 WBCs. The reference range was not used to interpret this result as normal/abnormal. NRBC x10^3 (test code = 9911444099) <0.01 See_Comment [Automated [employer] ge] The system which generated this result transmitted reference range: 10*3/?L. The reference range was not used to interpret this result as normal/abnormal. GRAN MAT (NEUT) % (test code = 770-8) 62.6 % IMM GRAN % (test code = 8461571998) 0.70 % LYMPH % (test code = 736-9) 28.6 % MONO % (test code = 5905-5) 6.0 % EOS % (test code = 713-8) 1.6 % BASO % (test code = 706-2) 0.5 % GRAN MAT x10^3(ANC) (test code = 0885128097) 5.09 10*3/uL 1.88-7.09 IMM GRAN x10^3 (test code = 6391190382) 0.06 10*3/uL 0-0.06 LYMPH x10^3 (test code = 731-0) 2.33 10*3/uL 1.32-3.29 MONO x10^3 (test code = 742-7) 0.49 10*3/uL 0.33-0.92 EOS x10^3 (test code = 711-2) 0.13 10*3/uL 0.03-0.39 BASO x10^3 (test code = 704-7) 0.04 10*3/uL 0.01-0.07 Lab Interpretation (test code = 59480-0) Abnormal [facility] [id number] 22:13:00* Test Item Value Reference Range Interpretation Comme nts POCT PREG (test code = 1605) neg On board controls acceptable with C Line (test code = 3574) yes POCT PREG LOT # (test code = 3575) [id number] POCT PREG TEST DATE ( test code = 3576) 04/13/2022 Lab Interpretation (test cod e = 98391-4) Normal [facility]"
[2023-10-03 23:13] LABS: Specific Gravity > 1.030 (1.005-1.030)
--- NOTE | 2023-10-04 02:45 | ER ---
Nurse's Notes [facility] Name: Savanna Flynn Age: 28 yrs Sex: Female : 1995 Arrival Date: 10/03/2023 Time: 21:45 Bed 16 Private MD: Raymond Szymanski Diagnosis: Rheumatoid arthritis, unspecified;Acute exacerbation of rheumatoid arthritis, acute exacerbation of chronic autoimmune condition Presentation: 10/02 22:11 Chief complaint: Patient states: generalized body aches for 1 week; hx of arthritis km8 with flare-ups with similar symptoms. Coronavirus screen: Client denies travel out of the [place] in the last 14 days. Ebola Screen: No symptoms or risks identified at this time. Initial Sepsis Screen: Does the patient meet any 2 criteria? No. Patient's initial sepsis screen is negative. Does the patient have a suspected source of infection? No. Patient's initial sepsis screen is negative. Risk Assessment: Do you want to hurt yourself or someone else? Patient reports no desire to harm self or others. Onset of symptoms was September 26, 2023. 22:11 Method Of Arrival: Ambulatory km8 22:11 Acuity: SUBHASH 3 km8 Triage Assessment: 22:13 General: Appears in no apparent distress. uncomfortable, Behavior is calm, cooperative, km8 appropriate for age. Pain: Complains of pain in generalized body Pain currently is 8 out of 10 on a pain scale. EENT: No signs and/or symptoms were reported regarding the EENT system. Neuro: Level of Consciousness is awake, alert, obeys commands, Oriented to person, place, time, situation. Cardiovascular: Denies chest pain, shortness of breath, Patient's skin is warm and dry. Respiratory: Airway is patent Respiratory effort is even, unlabored, Respiratory pattern is regular, symmetrical. GI: No signs and/or symptoms were reported involving the gastrointestinal system. : No signs and/or symptoms were reported regarding the genitourinary system. Derm: No signs and/or symptoms reported regarding the dermatologic system. Skin is intact, is healthy with good turgor, Skin is dry, Skin is pink, warm \T\ dry. normal, Skin temperature is warm. Musculoskeletal: Range of motion: intact in all extremities, Reports pain in genralized body Pain is 8 out of 10 on a pain scale. 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 - Social history:: Smoking status: Patient denies any tobacco usage or history of. Patient/guardian denies using alcohol, street drugs. - Family history:: not pertinent. Screenin:54 [facility] ED Fall Risk Assessment (Adult) History of falling in the last 3 months, 8 including since admission No falls in past 3 months (0 pts) Confusion or Disorientation No (0 pts) Intoxicated or Sedated No (0 pts) Impaired Gait No (0 pts) Mobility Assist Device Used No (0 pt) Altered Elimination No (0 pt) Score/Fall Risk Level 0 - 2 = Low Risk Oriented to surroundings, Maintained a safe environment, Educated pt \T\ family on fall prevention, incl call for assistance when getting out of bed, Assessed \T\ reinforced patient's understanding of fall precautions. Abuse screen: Denies threats or abuse. Denies injuries from another. Nutritional screening: No deficits noted. Tuberculosis screening: No symptoms or risk factors identified. Assessment: 23:54 Reassessment: Patient appears in no apparent distress at this time. No changes from [facility] previously documented assessment. Patient is alert, oriented x 3, equal unlabored respirations, skin warm/dry/pink. see triage assessment. 10/03 01:00 Reassessment: Patient appears in no apparent distress at this time. Patient and/or km8 family updated on plan of care and expected duration. Pain level reassessed. Patient is alert, oriented x 3, equal unlabored respirations, skin warm/dry/pink. Patient denies pain at this time. Patient states feeling better. Patient states symptoms have improved. 02:00 Reassessment: ASSUMED CARE OF PT. PT LYING IN BED ON CELL PHONE. NO PAIN OR DISTRESS AT jj7 THIS TIME. VS STABLE. CALL LYNNE IN REACH. NO NEEDS AT THIS TIME. General: Appears in no apparent distress. comfortable, Behavior is calm, cooperative, appropriate for age. Vital Signs: 10/02 22:11 BP 126 / 88; Pulse 87; Resp 16; Temp 98.5(O); Pulse Ox 98% on R/A; Weight 65.77 kg (R); km8 Height 5 ft. 2 in. (R); Pain 8/10; 23:54 BP 124 / 84; Pulse 79; Resp 16; Pulse Ox 100% on R/A; km8 10/03 00:30 BP 119 / 80; Pulse 88; Resp 16; Pulse Ox 100% on R/A; km8 02:30 BP 109 / 60; Pulse 87; Resp 16; Pulse Ox 98% ; Pain 0/10; jj7 10/02 22:11 Body Mass Index 26.52 (65.77 kg, 157.48 cm) [facility] 10/02 22:11 Pain Scale: Adult 8 02:30 Pain Scale: Adult [facility] [place] Coma Score: 10/02 23:54 Eye Response: spontaneous(4). Motor Response: obeys commands(6). Verbal Response: km8 oriented(5). Total: 15. ED Course: 21:52 Patient arrived in ED. gm2 21:53 Raymond Szymanski MD is Private Physician. gm2 21:53 Gerald Puckett MD is Attending Physician. sp4 22:12 Triage completed. km8 22:13 Arm band placed on right wrist. 8 22:21 Patient placed in waiting room, Patient notified of wait time. km8 23:54 Lluvia Matson, RN is Primary Nurse. km8 23:54 Patient has correct armband on for positive identification. Bed in low position. Call [facility] light in reach. Side rails up X 1. Pulse ox on. NIBP on. Door closed. Noise minimized. Lights dimmed. Warm blanket given. 23:54 Inserted saline lock: 22 gauge in right hand, using aseptic technique. Blood collected. 8 Patient maintains SpO2 saturation greater than 95% on room air. 23:55 CBC with Diff Sent. 8 23:55 CMP Sent. 8 23:55 Lipase Sent. 8 23:55 Initial lab(s) drawn, by nd, sent to lab. [facility] 10/03 02:44 Raymond Szymanski MD is Referral Physician. sp4 02:52 No provider procedures requiring assistance completed. jj7 02:52 IV discontinued, intact, bleeding controlled, No redness/swelling at site. Pressure jj7 dressing applied. Administered Medications: 00:29 Drug: Ketorolac IVP 30 mg IVP once Route: IVP; Site: right hand; km8 01:25 Follow up: Response: No adverse reaction; Pain is decreased 8 00:29 Drug: metoCLOPramide IVP 10 mg IVP once; over 1 to 2 minutes Route: IVP; Site: right km8 hand; 01:25 Follow up: Response: No adverse reaction 8 00:29 Drug: Solu-CORTEF IVP 100 mg IVP once Route: IVP; Site: right hand; km8 01:25 Follow up: Response: No adverse reaction; Pain is decreased 8 00:29 Drug: traMADol PO 100 mg PO once Route: PO; km8 01:25 Follow up: Response: No adverse reaction; Pain is decreased km8 Medication: 02:30 VIS not applicable for this client. jj7 Outcome: 02:45 Discharge ordered by . moisés 02:52 Discharged to home ambulatory, jj7 02:52 Condition: improved 02:52 Discharge instructions given to patient, Instructed on discharge instructions, medication usage, Demonstrated understanding of instructions, medications, Prescriptions given X 4, 03:00 Patient left the ED. jj7 Signatures: Britany Corrales RN RN jj7 Gerald Puckett MD MD sp4 Nery Rosales 2 Lluvia Matson RN RN km8
--- NOTE | 2023-10-04 02:45 | EDPHYS ---
Physician Documentation [facility] Name: Savanna Flynn Age: 28 yrs Sex: Female : 1995 Arrival Date: 10/03/2023 Time: 21:45 Bed 16 Private MD: Raymond Szymanski ED Physician Gerald Puckett HPI: 10/02 21:53 This 28 yrs old Female presents to ER via Unassigned with complaints of Pain sp4 All Over. 21:54 1 LMP 08/28/2023, unknown Historical: Allergies: NKDA; PMHx: Arthritis; sp4 Fibromyalgia; shogrens; vasculitis; PSHx: section;. 10/03 02:50 Patient with long history of rheumatoid arthritis, history of lupus and Sjogren's and sp4 vasculitis, presents with 1 week of worsening diffuse bodyaches and joint aches. States this is usually a consequence of worsening rheumatoid arthritis. Patient in the past was on Remicade infusion every 2 months which controlled rheumatoid arthritis. Patient is following up with historiography professor in [place] Dr. Aleman. Currently she is not on any medication secondary to insurance problems. . 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 - Social history:: Smoking status: Patient denies any tobacco usage or history of. Patient/guardian denies using alcohol, street drugs. - Family history:: not pertinent. ROS: 10/03 02:50 Constitutional: Negative for fever, chills, and weight loss, sp4 All other systems are negative, Exam: 02:50 Constitutional: This is a well developed, well nourished patient who is awake, alert, sp4 and in no acute distress. Head/Face: Normocephalic, atraumatic. Eyes: Pupils equal round and reactive to light, extra-ocular motions intact. Lids and lashes normal. Conjunctiva and sclera are not injected. Cornea within normal limits. Periorbital areas with no swelling, redness, or edema. ENT: Nares patent. No nasal discharge, no septal abnormalities noted. Tympanic membranes are normal and external auditory canals are clear. Oropharynx with no redness, swelling, or masses, exudates, or evidence of obstruction, uvula midline. Mucous membranes moist. Neck: Trachea midline, no thyromegaly or masses palpated, and no cervical lymphadenopathy. Supple, full range of motion without nuchal rigidity, or vertebral point tenderness. Chest/axilla: Normal chest wall appearance and motion. Nontender with no deformity. No lesions are appreciated. Cardiovascular: Regular rate and rhythm with a normal S1 and S2. No gallops, murmurs, or rubs. Normal PMI, no JVD. No pulse deficits. Respiratory: Lungs have equal breath sounds bilaterally, clear to auscultation and percussion. No rales, rhonchi or wheezes noted. No increased work of breathing, no retractions or nasal flaring. Abdomen/GI: Soft, with normal bowel sounds. No distension or tympany. No guarding or rebound. No evidence of tenderness throughout. Back: No spinal tenderness. No costovertebral tenderness. Skin: Warm, dry with normal turgor. Normal color with no rashes, no lesions, and no evidence of cellulitis. MS/ Extremity: Pulses equal, no cyanosis. Neurovascular intact. Full, normal range of motion. Neuro: Awake and alert, GCS 15, oriented to person, place, time, and situation. Cranial nerves II-XII grossly intact. Motor strength 5/5 in all extremities. Sensory grossly intact. Psych: Awake, alert, with orientation to person, place and time. Behavior, mood, and affect are within normal limits Vital Signs: 10/02 22:11 BP 126 / 88; Pulse 87; Resp 16; Temp 98.5(O); Pulse Ox 98% on R/A; Weight 65.77 kg (R); km8 Height 5 ft. 2 in. (R); Pain 8/10; 23:54 BP 124 / 84; Pulse 79; Resp 16; Pulse Ox 100% on R/A; km8 10/03 00:30 BP 119 / 80; Pulse 88; Resp 16; Pulse Ox 100% on R/A; km8 02:30 BP 109 / 60; Pulse 87; Resp 16; Pulse Ox 98% ; Pain 0/10; jj7 10/02 22:11 Body Mass Index 26.52 (65.77 kg, 157.48 cm) 8 10/02 22:11 Pain Scale: Adult km8 02:30 Pain Scale: Adult jj7 [place] Coma Score: 10/02 23:54 Eye Response: spontaneous(4). Motor Response: obeys commands(6). Verbal Response: km8 oriented(5). Total: 15. MDM: 21:55 Patient medically screened. [facility] 10/03 02:52 Differential Diagnosis altered mental status, sepsis, flu, Exacerbation of rheumatoid sp4 arthritis. Diffuse inflammatory arthropathy. Data reviewed: vital signs, nurses notes, lab test result(s). Consideration of Admission/Observation Escalation of care including admission/observation considered. ED course: Patient has improved after medications in the emergency room. Patient stable for discharge home with as needed tramadol as needed Naprosyn as needed Phenergan also prednisone course of the next 5 days. Advised patient contact her historiography professor for additional evaluation. . 10/02 21:55 Order name: CBC with Diff; Complete Time: : [facility] 10/02 21:55 Order name: CMP; Complete Time: : [facility] 10/02 21:55 Order name: Lipase; Complete Time: [facility] 10/02 21:55 Order name: Test, Urine; Complete Time: 23:25 [facility] 10/02 21:55 Order name: CRP; Complete Time: : [facility] 10/02 21:55 Order name: IV Saline Lock; Complete Time: 23:55 [facility] 10/02 21:55 Order name: Labs collected and sent; Complete Time: 23:55 [facility] Administered Medications: 00:29 Drug: Ketorolac IVP 30 mg IVP once Route: IVP; Site: right hand; 8 01:25 Follow up: Response: No adverse reaction; Pain is decreased 00:29 Drug: metoCLOPramide IVP 10 mg IVP once; over 1 to 2 minutes Route: IVP; Site: right [facility] hand; 01:25 Follow up: Response: No adverse reaction 00:29 Drug: Solu-CORTEF IVP 100 mg IVP once Route: IVP; Site: right hand; 8 01:25 Follow up: Response: No adverse reaction; Pain is decreased km8 00:29 Drug: traMADol PO 100 mg PO once Route: PO; km8 01:25 Follow up: Response: No adverse reaction; Pain is decreased km8 Disposition Summary: 10/04/23 02:45 Discharge Ordered Notes: Location: Home sp4 Problem: new sp4 Symptoms: have improved sp4 Condition: Stable sp4 Diagnosis - Rheumatoid arthritis, unspecified sp4 - Acute exacerbation of rheumatoid arthritis, acute exacerbation of chronic sp4 autoimmune condition Followup: sp4 - With: Raymond Szymanski MD - When: 7 - 10 days - Reason: Recheck today's complaints Discharge Instructions: - Discharge Summary Sheet sp4 - Rheumatoid Arthritis, [id number] sp4 Forms: - Patient Portal Instructions sp4 Prescriptions: - naproxen sodium 500 mg Oral Tablet, ER Multiphase 24 hr - take 1 tablet ORAL route every 12 hours PRN pain; 60 tablet; Refills: 0, sp4 Product Selection Permitted - Tramadol 50 mg Oral tablet - take 1 tablet ORAL route every 8 hours as needed; 30 tablet; Refills: 0, sp4 Product Selection Permitted - Prednisone 20 mg Oral Tablet - take 2 tablets ORAL route once daily for 5 days; 10 tablet; Refills: 0, Product sp4 Selection Permitted - promethazine 25 mg Oral tablet - take 1 tablet ORAL route every 6 hours As needed PRN nausea; 30 tablet; sp4 Refills: 0, Product Selection Permitted Signatures: Dispatcher [employer] Gerald Askew MD MD sp4 Lluvia Matson RN RN km8
[2023-10-04 04:24] VITALS: BP 109/60; TEMP 98.5; O2SAT 98
== END ==
LOC: ER 21:45
DX: M06.9 Rheumatoid arthritis, unspecified (principal)
CPT/HCPCS: 36415; 80053; 81025; 83690; 85025; 86140; 96374; 96375; 99285

== ENCOUNTER 2023-10-23 21:10 | Emergency (ER) | payer SELFPAY ==
--- OUTSIDE RECORDS SUMMARY | 2023-10-23 21:13 | XMS REPORT | Continuity of Care Document ---
Author Name Unknown Address [address] [place] [address] thconnect Address [address] [facility]. 1 [address] [place] [address] Care Team Providers Care Sales Host Name Role Phone Otf [place]ata Attending Clinician [phone] OTF LUCERO Attending Clinician Unavailable Payers Payer Name Policy Type Policy Number Effective Date Expirati on Date Source Problems Condition Name Condition Details Condition Category Status Onset Date Resolution Date Last Treatment Date Treating Clinician Comments Source No known active problems No known active problems Disease [facility] Allergies, Adverse Reactions, Alerts Allergy Name Allergy Type Status Severity Reaction(s) Onset Date Inactive Date Treating Clinician Comments Source NO KNOWN ALLERGIE S Drug Class Active [facility] Social History Social Habit Start Date Stop Date Quantity Comments Source Sex Assigned At [facility] Exposure to SARS-CoV-2 (event) Not sure [facility] Smoking Status Start Date Stop Date Source Unknown if ever smoked [facility] Medications Ordered Medication Name Filled Medication Name Start Date Stop Date Current Medication? Ordering Clinician Indication Dosage Frequency Signature (SIG) Comments Components Source ketorolac (TORADOL) injection 15 mg 09-09 00:45: 00 09-08 23:47 :00 No 15mg 15 mg, Slow IV Push, ONCE, 1 dose, Sandi 09/08/20 at 1845, RACHEL
[facility] approving Restricted medication : ADEEL BAKER [facility] ondansetron (ZOFRAN (PF)) injection 4 mg 09-08 23:15: 00 09-08 22:24 :00 No 4mg 4 mg, Slow IV Push, ONCE, 1 dose, Sandi 09/08/20 at 1715, [facility] morpHINE injection 4 mg 09-08 23:15: 00 09-08 22:24 :00 No 4mg 4 mg, Slow IV Push, ONCE, 1 dose, Sandi 09/08/20 at 1715, STAT [facility] maalox:diph enhydrAMINE :lidocaine 2 % viscous 1:1:1 (FIRST-MOUT HWASH BLM) oral suspension 15 mL 09-08 22:30: 00 09-08 22:30 :00 No 15mL 15 mL, Oral, ONCE, 1 dose, Sandi 09/08/20 at 1630, [facility] NaCl 0.9% (NS) bolus infusion 1,000 mL 09-08 22:15: 00 09-09 00:50 :00 No 1000mL at 999 mL/hr, 1,000 mL, IV Infusion, ONCE, 1 dose, Sandi 09/08/20 at 1615, [facility] ondansetron 4 mg disintegrat ing tablet 09-08 00:00: 00 Yes [id number] 4mg Take 1 tablet by mouth every 8 (eight) hours as needed for Nausea and Vomiting (N/V). [facility] ibuprofen 600 mg tablet 09-08 00:00: 00 Yes [id number] 600mg Take 1 tablet by mouth every 8 (eight) hours as needed for Pain (scale 4-6). [facility] Nitrofurant oin&Nit. Macrocryst (MACROBID) 100 mg capsule 09-08 00:00: 00 09-14 05:59 :00 No [id number] 100mg Take 1 capsule by mouth 2 (two) times daily for 5 days. [facility] Vital Signs Vital Name Observation Time Observation Value Comments S ource Systolic blood pressure 2020-09-08 23:45:00 112 mm[Hg] [facility] Diastolic blood pressure 2020-09-08 23:45:00 77 mm[Hg] [facility] Heart rate 2020-09-08 23:45:00 83 /min [facility] Respiratory rate 2020-09-08 23:45:00 18 /min [facility] Oxygen saturation in Arterial blood by Pulse oximetry 2020-09-08 23:45:00 100 /min [place] [facility] Body temperature 2020-09-08 21:56:00 36.61 Shira [facility] Body weight 2020-09-08 21:56:00 62.143 kg [facility] Procedures Procedure Date / Time Performed Performing Clinicia n Source URINALYSIS 2020-09-09 00:27:00 Otf Lucero [facility] US GALL BLADDER 2020-09-08 23:30:50 [facility] 2020-09-08 22:13:00 Otf Lucero [facility] HEPATIC FUNCTION PANEL (23125) (ALB,T.PRO,BILI T,BU/BC,ALT,AST,ALK PHOS) 2020-09-08 22:13:00 Otf Lucero [facility] BASIC METABOLIC PANEL (NA, K, CL, CO2, GLUCOSE, BUN, CREATININE, CA) 2020-09-08 22:13:00 Otf Lucero [facility] CBC WITH DIFF 2020-09-08 22:13:00 Otf Lucero [facility] POCT TEST 2020-09-08 22:13:00 Otf Lucero [facility] NOTICE OF PRIVACY PRACTICES 2020-09-08 21:50:49 Doctor Unassigned, [place] [facility] CONSENT/REFUSAL FOR DIAGNOSIS AND TREATMENT 2020-09-08 21:50:40 Doctor Unassigned, [place] [facility] Encounters Start Date/Time End Date/Time Encounter Type Admission Type Attending Clinicians Care Facility Care Department Encounter ID Source 2020-09-08 16:00:00 2020-09-08 19:27:00 Emergency Otf Lucero [facility] [id number] [facility] 2020-09-08 16:00:00 2020-09-08 16:00:00 Emergency X OTF LUCERO [facility] ERT [id number] [facility] Results Test Description Test Time Test Comments Results Result Co mments Source [facility] (ALB, T.PRO, BILI T, BU/BC, ALT, AST, ALK PHOS)2020-09-08 22:38:00* Test Item Value Reference Range Interpretation Comme nts TOTAL BILI (test code = 7349685198) 0.5 mg/dL 0.1-1.1 BILI UNCON (test code = 4306011817) 0.4 mg/dL 0.1-1.1 BILI CONJ (test code = 5864016073) 0.0 mg/dL 0-0.3 T PROTEIN (test code = 9052958698) 9.5 g/dL 6.3-8.2 H ALBUMIN (test code = 6695873358) 4.8 g/dL 3.5-5 ALK PHOS (test code = 8203079138) 90 U/L 34-122 ALTv (test code = 1742-6) 10 U/L 5-35 AST(SGOT) (test code = 2692460943) 23 U/L 13-40 Lab Interpretation (test cod e = 01996-5) Abnormal [facility] (NA, K, CL, CO2, GLUCOSE, BUN, CREATININE, CA)2020-09-08 22:36:00* Test Item Value Reference Range Interpretation Comme nts NA (test code = 0536902051) 139 mmol/L 135-145 K (test code = 0299394077) 3.5 mmol/L 3.5-5 CL (test code = 9361943388) 103 mmol/L 98-108 CO2 TOTAL (test code = 3546501005) 25 mmol/L 23-31 AGAP (test code = 2386316347) 2-16 BUN (test code = 8465398592) 15 mg/dL 7-23 GLUCOSE (test code = 8739681518) 133 mg/dL 70-110 H CREATININE (test code = 6305649366) 0.72 mg/dL 0.5-1.04 CALCIUM (test code = 9273537576) 8.9 mg/dL 8.6-10.6 eGFR Calculation (Non-) (test code = 1708581402) mL/min/1.73m2 eGFR Calculation () (test code = 6145171889) mL/min/1.73m2 MANE (test code = MANE) Association [...] imaging tests). Lab Interpretation (test code = 40338-2) Abnormal [facility] [id number] 22:36:00* Test Item Value Reference Range Interpretation Comme nts LIPASE (test code = 7816566061) 92 U/L 0-220 Lab Interpretation (test cod e = 81647-4) Normal [facility] with [id number] 22:25:00* Test Item Value Reference Range Interpretation [...] 33.0 g/dL 31.6-35.1 RDW-SD (test code = 75232-5) 41.8 fL 39-49.9 RDW-CV (test code = 788-0) 12.5 % 12-15.5 PLT (test code = 777-3) See_Comment [Automated Digital [employer] ge] The system which generated this result transmitted reference range: 166 - 358 10*3/?L. The reference range was not used to interpret this result as normal/abnormal. MPV (test code = 38365-0) 10.3 fL 9.5-12.9 NRBC/100 WBC (test code = 8152413063) See_Comment [Automated [employer] ssage] The system which generated this result transmitted reference range: 0.0 - 10.0 /100 WBCs. The reference range was not used to interpret this result as normal/abnormal. NRBC x10^3 (test code = 8403751009) <0.01 See_Comment [Automated Digital [employer]ef[employer] ge] The system which generated this result transmitted reference range: 10*3/?L. The reference range was not used to interpret this result as normal/abnormal. GRAN MAT (NEUT) % (test code = 770-8) 62.6 % IMM GRAN % (test code = 1945322998) 0.70 % LYMPH % (test code = 736-9) 28.6 % MONO % (test code = 5905-5) 6.0 % EOS % (test code = 713-8) 1.6 % BASO % (test code = 706-2) 0.5 % GRAN MAT x10^3(ANC) (test code = 0936118688) 5.09 10*3/uL 1.88-7.09 IMM GRAN x10^3 (test code = 8316711905) 0.06 10*3/uL 0-0.06 LYMPH x10^3 (test code = 731-0) 2.33 10*3/uL 1.32-3.29 MONO x10^3 (test code = 742-7) 0.49 10*3/uL 0.33-0.92 EOS x10^3 (test code = 711-2) 0.13 10*3/uL 0.03-0.39 BASO x10^3 (test code = 704-7) 0.04 10*3/uL 0.01-0.07 Lab Interpretation (test code = 05058-0) Abnormal [facility] [id number] 22:13:00* Test Item Value Reference Range Interpretation Comme nts POCT PREG (test code = 1605) neg On board controls acceptable with C Line (test code = 3574) yes POCT PREG LOT # (test code = 3575) [id number] POCT PREG TEST DATE ( test code = 3576) 04/13/2022 Lab Interpretation (test cod e = 47016-7) Normal [facility]"
[2023-10-23] MEDS ORDERED: HYDROCORTISONE SUC 100 MG INJ ONE (22:01)
[2023-10-23] MEDS ORDERED: DIPHENHYDRAMINE 50 MG/ML VIAL ONE (22:01)
[2023-10-23] MEDS ORDERED: KETOROLAC 30 MG/ML INJ ONE (22:01)
[2023-10-23] MEDS ORDERED: METOCLOPRAMIDE 10 MG/2mL INJ ONE (22:02)
[2023-10-23] MEDS ORDERED: MORPHINE 4 MG/ML SYR ONE (22:02)
[2023-10-23] MEDS ORDERED: NA CHLORIDE 0.9% 1,000 ML ONE (22:02)
[2023-10-23 22:42] LABS: Absolute Eosinophils 0.2 K/uL (0-0.5); Absolute Lymphocytes (CBC) 1.8 K/uL (0.7-4.9); Absolute Monocytes 0.4 K/uL (0.1-1.3); Absolute Neutrophil 3.3 K/uL (1.8-8.0); Basophils % 0.5 % (0-1.3); Eosinophils % 3.2 % (0-4.4); Hematocrit 35.9 % (36.0-45.0); Hemoglobin 12.3 g/dL (12.0-15.0); Lymphocytes % 31.9 % (15.3-44.8); MCH 31.1 pg (27.0-35.0); MCHC 34.3 g/dL (32.0-36.0); MCV 90.8 fL (80-100); Monocytes % 6.6 % (3.3-12.3); Neutrophils % 57.8 % (41.7-73.7); Nucleated Red Blood Cells % 0.2 % (0-0); Platelets 316 thou/uL (152-406); RBC Red Blood Cell Count 3.95 M/uL (3.86-4.86); Red Cell Distribution Width 12.9 % (12.1-15.2)
[2023-10-23 23:04] LABS: ALT/SGPT 55 U/L (13-56); AST/SGOT 35 U/L (15-37); Albumin 3.5 g/dL (3.4-5.0); Albumin/Globulin Ratio 0.6 (1.1-1.8); Alkaline Phosphatase 121 U/L (45-117); Anion Gap 9.5 mEq/L (5.0-15.0); BUN Blood Urea Nitrogen 18 mg/dL (7-18); Bicarbonate 26 mEq/L (21-32); Bilirubin Total 0.1 mg/dL (0.2-1.0); Globulin 5.8 g/dL (2.3-3.5); Glomerular Filtration Rate 84 ml/min (=/>90); Glucose Level 94 mg/dL (74-106); Magnesium 2.1 mg/dL (1.6-2.4); NT PRO-BNP 23 pg/mL (<125); Potassium 3.5 mEq/L (3.5-5.1); Protein, Total 9.3 g/dL (6.4-8.2); Sodium Level 136 mEq/L (136-145); Troponin High Sensitivity 5.1 pg/mL (<58.9)
[2023-10-23 23:06] LABS: Bilirubin Direct < 0.1 mg/dL (0-0.2); Bilirubin Indirect, Calculated ND mg/dL (0.2-0.8)
[2023-10-23 23:21] LABS: PT Prothrombin Time 11.3 SECONDS (9.5-12.5); Protime INR 1.03
--- NOTE | 2023-10-24 01:04 | ER ---
Nurse's Notes [facility] – [place], [place] Name: Savanna Flynn Age: 28 yrs Sex: Female : 1995 Arrival Date: 10/23/2023 Time: 21:10 Bed 8 Private MD: Diagnosis: Other headache syndrome;Acute headache, near syncopal episode Presentation: 10/22 21:20 Chief complaint: Patient states: frontal migraine starting at 1900; hx of cluster km8 headaches. Coronavirus screen: Client denies travel out of the [place] in the last 14 days. Ebola Screen: No symptoms or risks identified at this time. Initial Sepsis Screen: Does the patient meet any 2 criteria? No. Patient's initial sepsis screen is negative. Does the patient have a suspected source of infection? No. Patient's initial sepsis screen is negative. Risk Assessment: Do you want to hurt yourself or someone else? Patient reports no desire to harm self or others. Onset of symptoms was October 23, 2023 at 19:00. 21:20 Method Of Arrival: Wheelchair km8 21:20 Acuity: SUBHASH 3 km8 Triage Assessment: 21:20 General: Appears uncomfortable, Behavior is calm, cooperative, appropriate for age. km8 Pain: Complains of pain in forehead Pain currently is 8 out of 10 on a pain scale. Quality of pain is described as burning, aching. EENT: Reports photophobia. Neuro: Level of Consciousness is awake, alert, obeys commands, Oriented to person, place, time, situation, Reports headache a syncopal episode. Cardiovascular: Denies chest pain, shortness of breath, Patient's skin is warm and dry. Respiratory: Airway is patent Respiratory effort is even, unlabored, Respiratory pattern is regular, symmetrical. GI: No signs and/or symptoms were reported involving the gastrointestinal system. : No signs and/or symptoms were reported regarding the genitourinary system. Derm: No signs and/or symptoms reported regarding the dermatologic system. Skin is intact, is healthy with good turgor, Skin is dry, Skin is pink, warm \T\ dry. normal, Skin temperature is warm. Musculoskeletal: No signs and/or symptoms reported regarding the musculoskeletal system. Range of motion: intact in all extremities. 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 - Infectious Disease History:: Denies. - Social history:: Smoking status: Patient denies any tobacco usage or history of. Patient/guardian denies using alcohol, street drugs. - Family history:: not pertinent. Screenin:44 [facility] ED Fall Risk Assessment (Adult) History of falling in the last 3 months, jb4 including since admission No falls in past 3 months (0 pts) Confusion or Disorientation No (0 pts) Intoxicated or Sedated No (0 pts) Impaired Gait No (0 pts) Mobility Assist Device Used No (0 pt) Altered Elimination No (0 pt) Score/Fall Risk Level 0 - 2 = Low Risk Oriented to surroundings, Maintained a safe environment. Abuse screen: Denies threats or abuse. Nutritional screening: No deficits noted. Tuberculosis screening: No symptoms or risk factors identified. Assessment: 21:30 General: Appears in no apparent distress. comfortable, Behavior is calm, cooperative, jb4 appropriate for age. Pain: Complains of pain in migraine headache. Pain does not radiate. Pain currently is 7 out of 10 on a pain scale. Neuro: Level of Consciousness is awake, alert, obeys commands, Oriented to person, place, time, situation. Cardiovascular: Patient's skin is warm and dry. Respiratory: Airway is patent Respiratory effort is even, unlabored, Respiratory pattern is regular, symmetrical. GI: No signs and/or symptoms were reported involving the gastrointestinal system. : No signs and/or symptoms were reported regarding the genitourinary system. EENT: No signs and/or symptoms were reported regarding the EENT system. Derm: Skin is intact, Skin is pink, warm \T\ dry. Musculoskeletal: Circulation, motion, and sensation intact. Range of motion: intact in all extremities. 22:43 Reassessment: Patient appears in no apparent distress at this time. Patient and/or jb4 family updated on plan of care and expected duration. Pain level reassessed. Patient is alert, oriented x 3, equal unlabored respirations, skin warm/dry/pink. 10/23 00:00 Reassessment: Patient appears in no apparent distress at this time. Patient and/or jb4 family updated on plan of care and expected duration. Pain level reassessed. Patient is alert, oriented x 3, equal unlabored respirations, skin warm/dry/pink. 00:44 Reassessment: Patient appears in no apparent distress at this time. Patient and/or jb4 family updated on plan of care and expected duration. Pain level reassessed. Patient is alert, oriented x 3, equal unlabored respirations, skin warm/dry/pink. 01:24 Reassessment: Patient appears in no apparent distress at this time. Patient and/or jb4 family updated on plan of care and expected duration. Pain level reassessed. Patient is alert, oriented x 3, equal unlabored respirations, skin warm/dry/pink. Vital Signs: 10/22 21:20 Temp 98.6(TE); Weight 65.77 kg; Height 5 ft. 2 in. ; Pain 7/10; km8 21:30 BP 131 / 78; Pulse 99; Resp 13; Temp 98.2; Pulse Ox 99% on R/A; Weight 67.59 kg; Height ty 5 ft. 2 in. ; Pain 7/10; 22:30 BP 103 / 74; Pulse 91; Resp 16; Pulse Ox 98% on R/A; jb4 10/23 00:30 BP 109 / 68; Pulse 90; Resp 16; Pulse Ox 99% on R/A; jb4 10/22 21:30 Body Mass Index 27.25 (67.59 kg, 157.48 cm) ty 10/22 21:20 Pain Scale: Adult km8 21:30 Pain Scale: Adult ty Tucker Coma Score: 10/22 23:53 Eye Response: spontaneous(4). Motor Response: obeys commands(6). Verbal Response: sp4 oriented(5). Total: 15. ED Course: 21:12 Patient arrived in ED. ra3 21:20 Arm band placed on right wrist. km8 21:25 Gerald Puckett MD is Attending Physician. sp4 21:33 Triage completed. km8 21:56 Erasto Looney, RN is Primary Nurse. jb4 21:56 Basic Metabolic Panel Sent. jb4 21:56 CBC with Diff Sent. jb4 21:56 LFT's Sent. jb4 21:56 Magnesium Sent. jb4 21:56 NT PRO-BNP Sent. jb4 21:56 PT-INR Sent. jb4 21:56 Troponin HS Sent. jb4 21:56 Inserted saline lock: 18 gauge in right antecubital area, using aseptic technique. ty Blood collected. 22:00 Radiology exam delayed due to blood drawn, bathroom, and EKG. az 22:33 XRAY Chest (1 view) In Process Unspecified. EDIA 10/23 01:24 Patient has correct armband on for positive identification. Bed in low position. Call jb4 light in reach. Side rails up X 1. Provided Education on: Discharge instructions.. 01:24 No provider procedures requiring assistance completed. IV discontinued, intact, jb4 bleeding controlled, No redness/swelling at site. Pressure dressing applied. Administered Medications: 10/22 22:17 Not Given (Patient Refused): morphineor iv 4 mg IVP once over 4 mins jb4 22:17 Drug: Ketorolac IVP 30 mg IVP once Route: IVP; Site: right antecubital; jb4 22:17 Drug: Solu-CORTEF IVP 100 mg IVP once Route: IVP; Site: right antecubital; jb4 22:18 Drug: metoCLOPramide IVP 10 mg IVP once; over 1 to 2 minutes Route: IVP; Site: right jb4 antecubital; 22:18 Drug: diphenhydrAMINE IVP 50 mg IVP once Route: IVP; Site: right antecubital; jb4 22:18 Drug: NS 0.9% IV 1000 ml IV at 1 bolus Per protocol; 1000 mL bolus Route: IV; Rate: 1 jb4 bolus; Site: right antecubital; Medication: 10/23 01:24 VIS not applicable for this client. jb4 Outcome: 01:04 Discharge ordered by . sp4 01:24 Discharged to home ambulatory, jb4 01:24 Condition: stable 01:24 Discharge instructions given to patient, Instructed on discharge instructions, follow up and referral plans. medication usage, Demonstrated understanding of instructions, follow-up care, medications, Prescriptions given X 1, 01:26 Patient left the ED. jb4 Signatures: Dispatcher [employer] EDIA Erasto Looney RN RN jb4 Michell Frye Sergey, MD MD sp4 Lluvia Matson RN RN km8 Maria Ines Trinidad ra3 Margarito Morales ty Corrections: (The following items were deleted from the chart) 10/22 22:35 22:33 Inserted saline lock: 18 gauge in right antecubital area, using aseptic ty technique. Blood collected. ty
--- NOTE | 2023-10-24 01:04 | EDPHYS ---
Physician Documentation [facility] [place] Name: Savanna Flynn Age: 28 yrs Sex: Female : 1995 Arrival Date: 10/23/2023 Time: 21:10 Bed 8 Private MD: ED Physician Gerald Puckett HPI: 10/22 21:25 This 28 yrs old Female presents to ER via Unassigned with complaints of sp4 Fainting, severe Migraines. 23:53 28-year-old female presents with acute onset of moderate to severe headache associated sp4 with vomiting and near syncopal episode today at home. 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 - Infectious Disease History:: Denies. - Social history:: Smoking status: Patient denies any tobacco usage or history of. Patient/guardian denies using alcohol, street drugs. - Family history:: not pertinent. ROS: 23:53 Constitutional: Negative for fever, chills, and weight loss, positive headache, sp4 positive near syncopal episode, positive vomiting 23:53 All other systems are negative, Exam: 23:53 Constitutional: This is a well developed, well nourished patient who is awake, alert, sp4 and in no acute distress. Head/Face: Normocephalic, atraumatic. Eyes: Pupils equal round and reactive to light, extra-ocular motions intact. Lids and lashes normal. Conjunctiva and sclera are not injected. Cornea within normal limits. Periorbital areas with no swelling, redness, or edema. ENT: Nares patent. No nasal discharge, no septal abnormalities noted. Tympanic membranes are normal and external auditory canals are clear. Oropharynx with no redness, swelling, or masses, exudates, or evidence of obstruction, uvula midline. Mucous membranes moist. Neck: Trachea midline, no thyromegaly or masses palpated, and no cervical lymphadenopathy. Supple, full range of motion without nuchal rigidity, or vertebral point tenderness. Chest/axilla: Normal chest wall appearance and motion. Nontender with no deformity. No lesions are appreciated. Cardiovascular: Regular rate and rhythm with a normal S1 and S2. No gallops, murmurs, or rubs. Normal PMI, no JVD. No pulse deficits. Respiratory: Lungs have equal breath sounds bilaterally, clear to auscultation and percussion. No rales, rhonchi or wheezes noted. No increased work of breathing, no retractions or nasal flaring. Abdomen/GI: Soft, with normal bowel sounds. No distension or tympany. No guarding or rebound. No evidence of tenderness throughout. Back: No spinal tenderness. No costovertebral tenderness. Skin: Warm, dry with normal turgor. Normal color with no rashes, no lesions, and no evidence of cellulitis. MS/ Extremity: Pulses equal, no cyanosis. Neurovascular intact. Full, normal range of motion. Neuro: Awake and alert, GCS 15, oriented to person, place, time, and situation. Cranial nerves II-XII grossly intact. Motor strength 5/5 in all extremities. Sensory grossly intact. Psych: Awake, alert, with orientation to person, place and time. Behavior, mood, and affect are within normal limits 23:56 ECG was reviewed by the Attending Physician. EKG reveals sinus rhythm with a rate of sp4 100, EKG time 2223 Vital Signs: 21:20 Temp 98.6(TE); Weight 65.77 kg; Height 5 ft. 2 in. ; Pain 7/; km8 21:30 BP 131 / 78; Pulse 99; Resp 13; Temp 98.2; Pulse Ox 99% on R/A; Weight 67.59 kg; Height ty 5 ft. 2 in. ; Pain 7/; 22:30 BP 103 / 74; Pulse 91; Resp 16; Pulse Ox 98% on R/A; jb4 10/23 00:30 BP 109 / 68; Pulse 90; Resp 16; Pulse Ox 99% on R/A; jb4 10/22 21:30 Body Mass Index 27.25 (67.59 kg, 157.48 cm) ty 10/22 21:20 Pain Scale: Adult km8 21:30 Pain Scale: Adult ty Betsy Coma Score: 10/22 23:53 Eye Response: spontaneous(4). Motor Response: obeys commands(6). Verbal Response: sp4 oriented(5). Total: 15. MDM: 22:03 Patient medically screened. sp4 23:56 ED course: EXAM DESCRIPTION: Chest Single View CLINICAL HISTORY: CHEST PAIN COMPARISON: 4 Chest x-ray 03/03/2022 TECHNIQUE: Single AP view of the chest. FINDINGS: Lung volumes adequate. Cardiac silhouette is normal in size. No pneumothorax. No large pleural effusion. No focal consolidation. No acute bony finding. IMPRESSION: No evidence of acute cardiopulmonary disease.. 10/23 07:32 Differential Diagnosis: emotional response, idiopathic syncope, , seizure. sp4 Data reviewed: vital signs, nurses notes. Data reviewed: lab test result(s), CBC, electrolytes, hepatic panel, urinalysis. Consideration of Admission/Observation Escalation of care including admission/observation considered. ED course: Patient has improved was discharged home in improved condition. IV hydration was provided. 10/22 21:26 Order name: Basic Metabolic Panel; Complete Time: 23:55 sp4 10/22 21:26 Order name: CBC with Diff; Complete Time: 23:55 sp4 10/22 21:26 Order name: LFT's; Complete Time: 23:55 sp4 10/22 21:26 Order name: Magnesium; Complete Time: 23:55 sp4 10/22 21:26 Order name: NT PRO-BNP; Complete Time: 23:55 sp4 10/22 21:26 Order name: PT-INR; Complete Time: 23:55 sp4 10/22 21:26 Order name: Troponin HS; Complete Time: 23:55 sp4 10/22 23:56 Order name: Test, Serum; Complete Time: 01:03 sp4 10/22 21:26 Order name: XRAY Chest (1 view) sp4 10/22 21:26 Order name: EKG; Complete Time: 21:28 sp4 10/22 21:26 Order name: Cardiac monitoring; Complete Time: 22:40 sp4 10/22 21:26 Order name: EKG - Nurse/Tech; Complete Time: 22:40 sp4 10/22 21:26 Order name: IV Saline Lock; Complete Time: 21:56 sp4 10/22 21:26 Order name: Labs collected and sent; Complete Time: 21:56 sp4 10/22 21:26 Order name: O2 Per Protocol; Complete Time: 21:56 sp4 10/22 21:26 Order name: O2 Sat Monitoring; Complete Time: 21:56 sp4 EC/10 23:56 Rate is 100 beats/min. Rhythm is regular, Normal Sinus Rhythm. QRS [place] is Normal. [place] sp4 interval is normal. QRS interval is normal. QT interval is normal. No Q waves. T waves are Normal. No ST changes noted. Clinical impression: Normal ECG. Interpreted by me. Reviewed by me. Administered Medications: 22:17 Not Given (Patient Refused): morphineor iv 4 mg IVP once over 4 mins jb4 22:17 Drug: Ketorolac IVP 30 mg IVP once Route: IVP; Site: right antecubital; jb4 22:17 Drug: Solu-CORTEF IVP 100 mg IVP once Route: IVP; Site: right antecubital; jb4 22:18 Drug: metoCLOPramide IVP 10 mg IVP once; over 1 to 2 minutes Route: IVP; Site: right jb4 antecubital; 22:18 Drug: diphenhydrAMINE IVP 50 mg IVP once Route: IVP; Site: right antecubital; jb4 22:18 Drug: NS 0.9% IV 1000 ml IV at 1 bolus Per protocol; 1000 mL bolus Route: IV; Rate: 1 jb4 bolus; Site: right antecubital; Disposition Summary: 10/24/23 01:04 Discharge Ordered Notes: Location: Home sp4 Problem: new sp4 Symptoms: have improved sp4 Condition: Stable sp4 Diagnosis - Other headache syndrome sp4 - Acute headache, near syncopal episode sp4 Followup: sp4 - With: Private Physician - When: 7 - 10 days - Reason: Recheck today's complaints Discharge Instructions: - Discharge Summary Sheet sp4 - General Headache Without Cause sp4 Forms: - Patient Portal Instructions sp4 Prescriptions: - Fioricet 50-300-40 mg Oral capsule - take 1 capsule ORAL route every 6 hours PRN headache; 30 capsule; Refills: 0, sp4 Product Selection Permitted Signatures: Dispatcher [employer] Erasto Alba RN RN jb4 Gerald Puckett MD MD sp4 Lluvia Matson RN RN km8
[2023-10-24 04:37] VITALS: BP 109/68; TEMP 98.2; O2SAT 99
--- NOTE | 2023-10-24 13:15 | RAD REPORT ---
EXAM DESCRIPTION: RAD - Chest Single View - 10/24/2023 6:00 am CLINICAL HISTORY: CHEST PAIN COMPARISON: Chest x-ray 03/03/2022 TECHNIQUE: Single AP view of the chest. FINDINGS: Lung volumes adequate. Cardiac silhouette is normal in size. No pneumothorax. No large pleural effusion. No focal consolidation. No acute bony finding. IMPRESSION: No evidence of acute cardiopulmonary disease. Electronically signed by: Merly Bolivar MD 10/23/2023 10:48 PM CDT Due to temporary technical issues with the PACS/Fluency reporting system, reports are being signed by the in house radiologist without review as a courtesy to ensure prompt reporting. The interpreting r adiologist is fully responsible for the content of the report.
--- NOTE | 2023-10-24 17:46 | EKG ---
Test Date: 2023-10-23 Test Time: 22:23:19 Senior Technical Analyst: ESSIE MEASUREMENT RESULTS: Intervals: Rate: 100 ME: 148 QRSD: 76 QT: 352 QTc: 454 [place]: P: 63 ME: 148 QRS: 69 T: 56 INTERPRETIVE STATEMENTS: Normal sinus rhythm Normal ECG Compared to ECG 09/05/2022 17:24:15 No significant changes Electronically Signed On 10-24-23 17:45:55 CDT by Kashif Lomeli
== END 2023-10-24 01:26 | disposition home or self-care (01) ==
LOC: ER 21:10
DX: G44.89 Other headache syndrome (principal); R55 Syncope and collapse
CPT/HCPCS: 36415; 71045; 80048; 80076; 83735; 83880; 84484; 84703; 85025; 85610; 93005; 96374; 96375; 99284; J1200; J1720; J2765; J7030

== ENCOUNTER 2024-10-27 20:49 | Emergency (ER) | payer BC, SELFPAY ==
--- OUTSIDE RECORDS SUMMARY | 2024-10-27 20:52 | XMS REPORT | Continuity of Care Document ---
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 Name Role Phone [place] Attending Clinician [phone] OTF LUCERO Attending Clinician Unavailable Payers Payer Name Policy Type Policy Number Effective Date Expirati on Date Source Problems Condition Name Condition Details Condition Category Status Onset Date Resolution Date Last Treatment Date Treating Clinician Comments Source No known active problems No known active problems Disease [facility] Allergies, Adverse Reactions, Alerts Allergy Name Allergy Type Status Severity Reaction(s) Onset Date Inactive Date Treating Clinician Comments Source NO KNOWN ALLERGIE S Drug Class Active [facility] Social History Social Habit Start Date Stop Date Quantity Comments Source Sex Assigned At [facility] Exposure to SARS-CoV-2 (event) Not sure [facility] Smoking Status Start Date Stop Date Source Unknown if ever smoked [facility] Medications Ordered Medication Name Filled Medication Name Start Date Stop Date Current Medication? Ordering Clinician Indication Dosage Frequency Signature (SIG) Comments Components Source ketorolac (TORADOL) injection 15 mg 09-09 00:45: 00 09-08 23:47 :00 No 15mg 15 mg, Slow IV Push, ONCE, 1 dose, Sandi 09/08/20 at 1845, RACHEL
Fa culty member approving Restricted medication : ADEEL BAKER [facility] ondansetron (ZOFRAN (PF)) injection 4 mg 09-08 23:15: 00 09-08 22:24 :00 No 4mg 4 mg, Slow IV Push, ONCE, 1 dose, Sandi 09/08/20 at 1715, RACHEL [facility] morpHINE injection 4 mg 09-08 23:15: 00 09-08 22:24 :00 No 4mg 4 mg, Slow IV Push, ONCE, 1 dose, Sandi 09/08/20 at 1715, STAT [facility] maalox:diph enhydrAMINE :lidocaine 2 % viscous 1:1:1 ([facility]) oral suspension 15 mL 09-08 22:30: 00 09-08 22:30 :00 No 15mL 15 mL, Oral, ONCE, 1 dose, Sandi 09/08/20 at 1630, [facility] NaCl 0.9% (NS) bolus infusion 1,000 mL 09-08 22:15: 00 09-09 00:50 :00 No 1000mL at 999 mL/hr, 1,000 mL, IV Infusion, ONCE, 1 dose, [facility] disintegrat ing tablet 09-08 00:00: 00 Yes [id number] 4mg Take 1 tablet by mouth every 8 (eight) hours as needed for Nausea and Vomiting (N/V). [facility] ibuprofen 600 mg tablet 09-08 00:00: 00 Yes [id number] 600mg Take 1 tablet by mouth every 8 (eight) hours as needed for Pain (scale 4-6). [facility] Nitrofurant oin&Nit. Macrocryst (MACROBID) 100 mg capsule 09-08 00:00: 00 09-14 05:59 :00 No [id number] 100mg Take 1 capsule by mouth 2 (two) times daily for 5 days. [facility] Vital Signs Vital Name Observation Time Observation Value Comments S nathaliatiago Systolic blood pressure 2020-09-08 23:45:00 112 mm[Hg] [facility] Diastolic blood pressure 2020-09-08 23:45:00 77 mm[Hg] [facility] Heart rate 2020-09-08 23:45:00 83 /min [facility] Respiratory rate 2020-09-08 23:45:00 18 /min [facility] Oxygen saturation in Arterial blood by Pulse oximetry 2020-09-08 23:45:00 100 /min [place] [facility] Body temperature 2020-09-08 21:56:00 36.61 Shira [facility] Body weight 2020-09-08 21:56:00 62.143 kg [facility] Procedures Procedure Date / Time Performed Performing Clinicia n Source URINALYSIS 2020-09-09 00:27:00 Otf Lucero [facility] US GALL BLADDER 2020-09-08 23:30:50 [facility] 2020-09-08 22:13:00 Otf Lucero [facility] HEPATIC FUNCTION PANEL (15673) (ALB,T.PRO,BILI T,BU/BC,ALT,AST,ALK PHOS) 2020-09-08 22:13:00 Otf Lucero [facility] BASIC METABOLIC PANEL (NA, K, CL, CO2, GLUCOSE, BUN, CREATININE, CA) 2020-09-08 22:13:00 Otf Lucero [facility] CBC WITH DIFF 2020-09-08 22:13:00 Otf Lucero [facility] POCT TEST 2020-09-08 22:13:00 Otf Lucero [facility] NOTICE OF PRIVACY PRACTICES 2020-09-08 21:50:49 Doctor Unassigned, [place] [facility] CONSENT/REFUSAL FOR DIAGNOSIS AND TREATMENT 2020-09-08 21:50:40 Doctor Unassigned, [place] [facility] Encounters Start Date/Time End Date/Time Encounter Type Admission Type Attending Clinicians Care Facility Care Department Encounter ID Source 2023-11-05 10:12:22 2023-11-05 10:12:22 Outpatient [facility] [id number] Harmeet Ramsey 2020-09-08 16:00:00 2020-09-08 19:27:00 Emergency Otf Lucero [facility] [id number] [facility] 2020-09-08 16:00:00 2020-09-08 16:00:00 Emergency X OTF LUCERO [facility] ERT [id number] [facility] Results Test Description Test Time Test Comments Results Result Co mments Source [facility] (ALB, T.PRO, BILI T, BU/BC, ALT, AST, ALK PHOS)2020-09-08 22:38:00* Test Item Value Reference Range Interpretation Comme nts TOTAL BILI (test code = 8068412703) 0.5 mg/dL 0.1-1.1 BILI UNCON (test code = 6518315617) 0.4 mg/dL 0.1-1.1 BILI CONJ (test code = 9423947395) 0.0 mg/dL 0-0.3 T PROTEIN (test code = 7926194950) 9.5 g/dL 6.3-8.2 H ALBUMIN (test code = 7405263676) 4.8 g/dL 3.5-5 ALK PHOS (test code = 6151905684) 90 U/L 34-122 ALTv (test code = 1742-6) 10 U/L 5-35 AST(SGOT) (test code = 7218677797) 23 U/L 13-40 Lab Interpretation (test cod e = 63171-5) Abnormal [facility] (NA, K, CL, CO2, GLUCOSE, BUN, CREATININE, CA)2020-09-08 22:36:00* Test Item Value Reference Range Interpretation Comme nts NA (test code = 5064966288) 139 mmol/L 135-145 K (test code = 2875239748) 3.5 mmol/L 3.5-5 CL (test code = 3982635429) 103 mmol/L 98-108 CO2 TOTAL (test code = 1659134376) 25 mmol/L 23-31 AGAP (test code = 1386562645) 2-16 BUN (test code = 8526459973) 15 mg/dL 7-23 GLUCOSE (test code = 5929130292) 133 mg/dL 70-110 H CREATININE (test code = 5644735388) 0.72 mg/dL 0.5-1.04 CALCIUM (test code = 8815326802) 8.9 mg/dL 8.6-10.6 eGFR Calculation (Non-) (test code = 2408186576) mL/min/1.73m2 eGFR Calculation () (test code = 1587821472) mL/min/1.73m2 MANE (test code = MANE) Association [...] imaging tests). Lab Interpretation (test code = 97414-1) Abnormal [facility] [id number] 22:36:00* Test Item Value Reference Range Interpretation Comme nts LIPASE (test code = 4791121795) 92 U/L 0-220 Lab Interpretation (test cod e = 38328-6) Normal [facility] acute hospital with [id number] 22:25:00* Test Item Value Reference Range Interpretation [...] 33.0 g/dL 31.6-35.1 RDW-SD (test code = 60941-1) 41.8 fL 39-49.9 RDW-CV (test code = 788-0) 12.5 % 12-15.5 PLT (test code = 777-3) See_Comment [Automated messa ge] The system which generated this result transmitted reference range: 166 - 358 10*3/?L. The reference range was not used to interpret this result as normal/abnormal. MPV (test code = 20103-4) 10.3 fL 9.5-12.9 NRBC/100 WBC (test code = 6439302645) See_Comment [Automated me ssage] The system which generated this result transmitted reference range: 0.0 - 10.0 /100 WBCs. The reference range was not used to interpret this result as normal/abnormal. NRBC x10^3 (test code = 2596764979) <0.01 See_Comment [Automated messa ge] The system which generated this result transmitted reference range: 10*3/?L. The reference range was not used to interpret this result as normal/abnormal. GRAN MAT (NEUT) % (test code = 770-8) 62.6 % IMM GRAN % (test code = 5302855634) 0.70 % LYMPH % (test code = 736-9) 28.6 % MONO % (test code = 5905-5) 6.0 % EOS % (test code = 713-8) 1.6 % BASO % (test code = 706-2) 0.5 % GRAN MAT x10^3(ANC) (test code = 9886329953) 5.09 10*3/uL 1.88-7.09 IMM GRAN x10^3 (test code = 6255834586) 0.06 10*3/uL 0-0.06 LYMPH x10^3 (test code = 731-0) 2.33 10*3/uL 1.32-3.29 MONO x10^3 (test code = 742-7) 0.49 10*3/uL 0.33-0.92 EOS x10^3 (test code = 711-2) 0.13 10*3/uL 0.03-0.39 BASO x10^3 (test code = 704-7) 0.04 10*3/uL 0.01-0.07 Lab Interpretation (test code = 95314-7) Abnormal [facility] [id number] 22:13:00* Test Item Value Reference Range Interpretation Comme nts POCT PREG (test code = 1605) neg On board controls acceptable with C Line (test code = 3574) yes POCT PREG LOT # (test code = 3575) [id number] POCT PREG TEST DATE ( test code = 3576) 04/13/2022 Lab Interpretation (test cod e = 99401-2) Normal [facility]"
--- NOTE | 2024-10-27 23:23 | ER ---
Nurse's Notes [facility] Name: Savanna Flynn Age: 29 yrs Sex: Female : 1995 Arrival Date: 10/27/2024 Time: 20:49 Bed IW1 Private MD: Diagnosis: Presentation: 10/27 20:58 Chief complaint: Patient states: I have a rash that started last week and is getting bm8 worse even though I am taking steriods daily. Coronavirus screen: At this time, the client does not indicate any symptoms associated with coronavirus-19. Ebola Screen: Patient negative for fever greater than or equal to 101.5 degrees Fahrenheit, and additional compatible Ebola Virus Disease symptoms Patient denies exposure to infectious person. Patient denies travel to an Ebola-affected area in the 21 days before illness onset. No symptoms or risks identified at this time. Initial Sepsis Screen: Does the patient meet any 2 criteria? No. Patient's initial sepsis screen is negative. Does the patient have a suspected source of infection? No. Patient's initial sepsis screen is negative. Risk Assessment: Do you want to hurt yourself or someone else? Patient reports no desire to harm self or others. Onset of symptoms was October 20, 2024. 20:58 Method Of Arrival: Ambulatory bm8 20:58 Acuity: SUBHASH 3 bm8 Triage Assessment: 21:00 General: Appears in no apparent distress. comfortable, Behavior is calm, cooperative, bm8 appropriate for age. Pain: Complains of pain in right leg and left leg Pain currently is 7 out of 10 on a pain scale. EENT: No deficits noted. No signs and/or symptoms were reported regarding the EENT system. Neuro: No deficits noted. Level of Consciousness is awake, alert, obeys commands, Oriented to person, place, time, situation, Appropriate for age. Cardiovascular: Capillary refill < 3 seconds in bilateral fingers Patient's skin is warm and dry. Respiratory: Airway is patent Respiratory effort is even, unlabored, Respiratory pattern is regular, symmetrical, Breath sounds are clear bilaterally. Derm: Rash noted that is red, vesicular, Reports itching, pain that is 7 out of 10 on a pain scale. 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 - Infectious Disease History:: Denies. - Social history:: Smoking status: Patient/guardian denies using tobacco, Stopped _ months ago 1. Screenin:[facility] ED Fall Risk Assessment (Adult) History of falling in the last 3 months, vc1 including since admission No falls in past 3 months (0 pts) Confusion or Disorientation No (0 pts) Intoxicated or Sedated No (0 pts) Impaired Gait No (0 pts) Mobility Assist Device Used No (0 pt) Altered Elimination No (0 pt) Score/Fall Risk Level 0 - 2 = Low Risk Oriented to surroundings, Maintained a safe environment, Educated pt \T\ family on fall prevention, incl call for assistance when getting out of bed, Hourly rounding (assess needs \T\ fall precautionary measures) done. Abuse screen: Denies threats or abuse. Nutritional screening: No deficits noted. Tuberculosis screening: No symptoms or risk factors identified. Vital Signs: 20:58 BP 143 / 87; Pulse 121; Resp 20; Temp 98.5; Pulse Ox 100% ; Weight 67.59 kg; Height 5 bm8 ft. 2 in. ; Pain 7/10; 20:58 Body Mass Index 27.25 (67.59 kg, 157.48 cm) bm8 20:58 Pain Scale: Adult bm8 ED Course: 20:53 Patient arrived in ED. gm2 20:59 Maggy Parish [facility]-C [facility]. kb 20:59 Timo Membreno MD is Attending Physician. kb 21:00 Triage completed. bm8 21:00 Arm band placed on right wrist. bm8 23:22 No provider procedures requiring assistance completed. Patient did not have IV access vc1 during this emergency room visit. Administered Medications: No medications were administered Outcome: 23:22 Eloped from waiting room, before seeing physician vc1 23:22 Condition: stable 23:23 Patient left the ED. vc1 Signatures: Maggy Parish FNP-C FNP-Ckb Calcote, Vanessa, RN RN vc1 Nery Rosales gm2 Jurado, Saurabh, RN RN bm8
[2024-10-27 23:31] VITALS: BP 143/87; TEMP 98.5; O2SAT 100
== END 2024-10-27 23:23 | disposition left against medical advice (07) ==
LOC: ER 20:49
DX: Z02.9 Encounter for administrative examinations, unspecified (principal)